=== PATIENT | female | born 1955 | race Caucasian/White ===

== ENCOUNTER → 2018-05-21 13:00 | Outpatient (BNVA) | payer MEDICARE, MEDICAID, SELFPAY | PROVIDERS: PCP Family Medicine; Visit Provider Internal Medicine Cardiovascular Disease | DX: I48.0 Paroxysmal atrial fibrillation (principal); J44.9 Chronic obstructive pulmonary disease, unspecified; F17.210 Nicotine dependence, cigarettes, uncomplicated; Z79.899 Other long term (current) drug therapy | CPT/HCPCS: 99213 ==

== ENCOUNTER 2018-05-21 14:15 | Outpatient (CLI) | payer MEDICARE, MEDICAID, SELFPAY ==
[2018-05-21 14:41] LABS: Abs Immature Grans 0.01 k/cumm (0.0-0.09); Absolute Basophil Count 0.04 k/cumm (0.0-0.2); Absolute Eosinophil Count 0.19 k/cumm (0.0-0.7); Absolute Lymphocyte Count 1.12 k/cumm (1.2-3.4); Absolute Monocyte Count 0.76 k/cumm (0.11-0.7); Absolute Neutrophil Count 4.24 k/cumm (1.2-6.7); Basophils % 0.6; HCT 39.3 % (36.0-46.0); HGB 13.1 g/dL (12.0-15.5); Immature Grans % 0.2; Lymphocytes % 17.6; Mean Corp. HGB Concentration 33.3 g/dL (32.0-36.0); Mean Corpuscular Hemoglobin 32.3 pg (27.0-33.0); Mean Platelet Volume 9.6 fL (8.0-11.0); Monocytes % 11.9; Neutrophils % 66.7; Platelet Count 244 x1000/uL (130-400); RBC 4.05 m/cumm (4.00-5.20); RBC Distribution Width 12.7 % (11.7-14.6); White Blood Cell Count 6.36 k/cumm (4.4-10.8)
[2018-05-21 16:01] LABS: Anion Gap 5.2 mmol/L (3-11); BUN 32 mg/dL (7-18); CO2 29.8 mmol/L (21.0-32.0); CREATININE 0.76 mg/dL (0.55-1.02); Calcium 8.6 mg/dL (8.5-10.1); Chloride 106 mmol/L (98-107); Glucose 101 mg/dL (70-100); Magnesium 2.2 mg/dL (1.8-2.4); Potassium 4.5 mmol/L (3.5-5.1); Sodium 141 mmol/L (136-145)
== END 2018-05-21 14:35 ==
PROVIDERS: PCP Family Medicine; Visit Provider Internal Medicine Cardiovascular Disease
DX: I48.91 Unspecified atrial fibrillation (principal); J44.9 Chronic obstructive pulmonary disease, unspecified; F17.210 Nicotine dependence, cigarettes, uncomplicated; Z79.899 Other long term (current) drug therapy
CPT/HCPCS: 80048; 83735; 85025; 93005; 99213

== ENCOUNTER 2018-06-03 06:31 | Day surgery (SDC) | payer MEDICARE, MEDICAID, SELFPAY ==
[2018-06-03 06:49] VITALS: BP 136/75; PULSE 92; RESP 18; TEMP 36.4; O2SAT 95
--- NOTE | 2018-06-03 07:22 | W.PM.DSUDISC ---
Discharge Plan Disposition Patient Disposition: HOME Condition: Good Discharge Details Attending Provider: Arnaldo Jonas Primary Care Provider: Juancarlos Mistry Home Meds and New Rx's Prescriptions: Continue multivitamin [Daily Vitamin] 1 EACH tablet 1 ea PO DAILY RF: 0 calcium carbonate-vitamin D3 1 EACH tablet 1 ea PO DAILY RF: 0 cholecalciferol (vitamin D3) [Vitamin D3] 2,000 UNIT capsule 2,000 unit PO DAILY RF: 0 omega-3 fatty acids 100 MG tablet,chewable 100 mg PO DAILY RF: 0 TECFIDERA 240 MG CAPSULE.DR 240 mg PO BID RF: 0 acetaminophen 650 MG tablet extended release 1 - 2 tab PO PRN RF: 0 colchicine [Colcrys] 0.6 MG tablet 0.6 mg PO As Directed Qty: 3 RF: 3 ipratropium bromide 15 ML spray,non-aerosol 2 spry NS TID PRNQty: 1 RF: 3 propranolol 10 MG tablet 10 mg PO DAILY Qty: 90 RF: 4 triamcinolone acetonide 15 GM cream Topical BID Qty: 30 RF: 3 tramadol 50 MG tablet 50 mg PO Q4H PRN PRNQty: 120 RF: 2 fluoxetine 10 MG capsule 10 mg PO DAILY Qty: 30 RF: 3 medroxyprogesterone [Provera] 2.5 MG tablet 2.5 mg PO DAILY Qty: 90 RF: 4 estradiol 0.5 MG tablet 0.5 mg PO DAILY Qty: 90 RF: 4 dofetilide [Tikosyn] 250 MCG capsule 250 mcg PO BID RF: 0 pantoprazole 40 MG tablet,delayed release (DR/EC) 40 mg PO DAILY Qty: 90 RF: 4 gabapentin 100 MG capsule 2 cap PO TID Qty: 540 RF: 4 cetirizine-pseudoephedrine 1 EACH tablet extended release 12 hr 1 tab-cap PO BID PRNQty: 60 RF: 5 magnesium L-lactate [Magtab] 84 MG tablet extended release 84 mg PO TID Qty: 180 RF: 3 temazepam 15 MG capsule 15 mg PO BID Qty: 60 RF: 2 dextroamphetamine-amphetamine [Adderall] 30 MG tablet 30 mg PO BID Qty: 60 RF: 0 Fluocinonide 60 ML solution 60 ml Topical BID Qty: 60 RF: 3 potassium chloride 10 MEQ capsule, extended release 20 meq PO DAILY Qty: 180 RF: 3 naproxen 500 MG tablet 500 mg PO BID Qty: 60 RF: 3 Discharge Instructions Additional Instructions: Activity: You may use your finger for light activity. No heavy gripping or grasping. You should keep the finger clean and dry. Dressings: Keep the initial dressings in place for the first 48 hours. You may then remove them and replace with a band-aid. The wound may get wet at that time. Medications: - You may apply ice for pain control. - You should take your previously prescribed Tylenol and Naproxen for pain control. Follow-up: 7 days Activity:: Elevate Remove Dressings/Wound Care:: 48 hours Shower/Bathe:: 48 hours Discharge Orders Discharge Orders: Discharge Order (Routine); Ordered 06/03/18 Ordered By: Arnaldo Jonas DS: Diagnosis Discharge Diagnosis (1) Ganglion cyst of finger of left hand: Status: Acute
[2018-06-03] MEDS: Lidocaine 1% Pres-Free 5 ML VIAL 10 ML (07:35)
[2018-06-03] MEDS: Bupivacaine 0.5% Pres-Free 30 ML VIAL (07:47)
--- NOTE | 2018-06-03 08:45 | ROE_ITS ---
Date of service: 06/03/18 Time of Service: 08:41 Operative Note DATE OF PROCEDURE: 06/03/18 PRE-OP DIAGNOSIS: Left Index Finger Ganglion Cyst POST-OP DIAGNOSIS: same PROCEDURE: Excision of ganglion cyst from left index finger SURGEON: Arnaldo Jonas ANESTHESIA: local ESTIMATED BLOOD LOSS: 0 PATHOLOGY: none sent COMPLICATIONS: None Patient was transported to: same day Patient's condition: stable Indications: Renu is a 63-year-old who has had a cyst over the dorsum of her left index finger proximal to the PIP joint for some time. He continues to get in the way and cause pain. She had tried letting it go but it continues to be persistent. I reviewed risk of excision with Renu to include bleeding, infection, pain, stiffness, recurrence. Despite these risks, she elects to proceed. Findings: There was a ganglion cyst located very superficially. It appear to be coming from the dorsum of the extensor tendon. No stalk down into the PIP joint was appreciated. Procedure Description: Renu was greeted in the preoperative holding area where her identity was confirmed the correct site was identified and marked. The consent was reviewed the patient and signed. Renu was taken back to the operating room placed in supine position. All bony prominences are well- padded. No prophylactic antibiotics were necessary given the clean nature of this distal hand surgery. The left hand was placed into a bump and prepped with ChloraPrep and draped in the standard fashion. A timeout was performed for safe surgery. A digital block to the index finger was performed with 1% lidocaine. After obtaining anesthesia for the finger a Yue drain was placed on the base of the finger to decrease blood flow. A 1-1/2 cm incision was made just radial to the cyst over the dorsum of the left index finger. The skin was incised sharply. Immediately visible was the cyst and the cyst contents were expressed. The cyst was inadvertently entered with the blunt tenotomy scissors. The cyst remnants were followed and appear to be adherent to the extensor tendon. There is no apparent communication to the PIP joint. The fluid removed was typical mucinous cyst type material. The wound was then thoroughly irrigated. The deeper tissues were explored and again showed no communication to the PIP joint. The wound was irrigated again. This was closed with a single 4-0 nylon stitch. The [place] drain was removed. The wound was dressed with Xeroform, 2 x 2's, conform dressing. At the end of the case there were no complications. She was taken to same-day surgery in stable condition.
== END 2018-06-03 08:18 | disposition home or self-care (01) ==
PROVIDERS: PCP Family Medicine; Visit Provider Student in an Organized Health Care Education/Training Program
PROC: (CPT 26160; principal; 2018-06-03 07:30)
DX: M67.442 Ganglion, left hand (principal)
CPT/HCPCS: 26160

== ENCOUNTER → 2018-06-03 07:59 | Outpatient (BNVA) | payer MEDICARE, MEDICAID, SELFPAY | PROVIDERS: PCP Family Medicine; Visit Provider Student in an Organized Health Care Education/Training Program | DX: R69 Illness, unspecified (principal) ==

== ENCOUNTER → 2018-06-11 13:56 | Outpatient (BNVA) | payer MEDICARE, MEDICAID, SELFPAY | PROVIDERS: PCP Family Medicine; Referring Provider Family Medicine; Visit Provider Student in an Organized Health Care Education/Training Program | DX: M67.442 Ganglion, left hand (principal); Z47.89 Encounter for other orthopedic aftercare ==

== ENCOUNTER → 2018-10-24 14:04 | Outpatient (BNVA) | payer MEDICARE, MEDICAID, SELFPAY | PROVIDERS: PCP Family Medicine; Visit Provider Internal Medicine Cardiovascular Disease | DX: R69 Illness, unspecified (principal) ==

== ENCOUNTER 2018-10-24 15:13 | Outpatient (CLI) | payer MEDICARE, MEDICAID, SELFPAY | END 2018-10-24 15:33 | PROVIDERS: PCP Family Medicine; Visit Provider Internal Medicine Cardiovascular Disease | DX: I48.0 Paroxysmal atrial fibrillation (principal); J44.9 Chronic obstructive pulmonary disease, unspecified; F17.210 Nicotine dependence, cigarettes, uncomplicated; Z79.899 Other long term (current) drug therapy | CPT/HCPCS: 99214; 93005; 93010 ==

== ENCOUNTER 2018-12-10 14:31 | Outpatient (CLI) | payer MEDICARE, MEDICAID, SELFPAY ==
[2018-12-10 18:10] LABS: BUN 21 mg/dL (7-18); CREATININE 0.75 mg/dL (0.55-1.02); Calcium 9.2 mg/dL (8.5-10.1); Chloride 105 mmol/L (98-107); Glucose 94 mg/dL (70-100); Magnesium 1.8 mg/dL (1.8-2.4); Potassium 4.1 mmol/L (3.5-5.1); Sodium 143 mmol/L (136-145)
== END 2018-12-10 14:51 ==
PROVIDERS: PCP Family Medicine; Referring Provider Psychiatry & Neurology Neurology; Visit Provider Internal Medicine Cardiovascular Disease
DX: I48.91 Unspecified atrial fibrillation (principal); G35 Multiple sclerosis
CPT/HCPCS: 36415; 80048; 83735

== ENCOUNTER → 2019-02-26 11:27 | Outpatient (BNVA) | payer MEDICARE, MEDICAID, SELFPAY | PROVIDERS: PCP Family Medicine; Visit Provider Internal Medicine Cardiovascular Disease | DX: G35 Multiple sclerosis (principal); Z79.899 Other long term (current) drug therapy; I48.91 Unspecified atrial fibrillation; I48.92 Unspecified atrial flutter; F17.200 Nicotine dependence, unspecified, uncomplicated; J44.9 Chronic obstructive pulmonary disease, unspecified ==

== ENCOUNTER 2019-02-26 11:58 | Outpatient (CLI) | payer MEDICARE, MEDICAID, SELFPAY | END 2019-02-26 12:18 | PROVIDERS: PCP Family Medicine; Visit Provider Internal Medicine Cardiovascular Disease | DX: I48.91 Unspecified atrial fibrillation (principal); I48.92 Unspecified atrial flutter; J44.9 Chronic obstructive pulmonary disease, unspecified; F17.210 Nicotine dependence, cigarettes, uncomplicated; G35 Multiple sclerosis | CPT/HCPCS: 99214; 93005; 93010 ==

== ENCOUNTER 2019-03-30 13:37 | Outpatient (CLI) | payer MEDICARE, MEDICAID, SELFPAY ==
[2019-03-30 14:03] LABS: Abs Immature Grans 0.01 k/cumm (0.0-0.09); Absolute Basophil Count 0.03 k/cumm (0.0-0.2); Absolute Eosinophil Count 0.19 k/cumm (0.0-0.7); Absolute Lymphocyte Count 1.04 k/cumm (1.2-3.4); Basophils % 0.5; Eosinophils % 2.9; HCT 41.2 % (36.0-46.0); HGB 13.7 g/dL (12.0-15.5); Immature Grans % 0.2; Lymphocytes % 15.8; Mean Corp. HGB Concentration 33.3 g/dL (32.0-36.0); Mean Corpuscular Hemoglobin 32.3 pg (27.0-33.0); Mean Corpuscular Volume 97.2 fL (80-95); Mean Platelet Volume 9.7 fL (8.0-11.0); Monocytes % 9.1; Neutrophils % 71.5; Platelet Count 235 x1000/uL (130-400); RBC 4.24 m/cumm (4.00-5.20); RBC Distribution Width 12.4 % (11.7-14.6); White Blood Cell Count 6.57 k/cumm (4.4-10.8)
[2019-03-30 14:56] LABS: ALT 22 U/L (12-78); AST 16 U/L (15-37); Albumin 3.8 g/dL (3.4-5.0); Alkaline Phosphatase 54 U/L (46-116); Anion Gap 8.9 mmol/L (3-11); BUN 21 mg/dL (7-18); Bilirubin, Total 0.5 mg/dL (0.2-1.0); CO2 29.1 mmol/L (21.0-32.0); CREATININE 0.84 mg/dL (0.55-1.02); Chloride 106 mmol/L (98-107); Glucose 123 mg/dL (70-100); Magnesium 2.1 mg/dL (1.8-2.4); Potassium 4.7 mmol/L (3.5-5.1); Sodium 144 mmol/L (136-145); Total Protein 6.7 g/dL (6.4-8.2)
== END 2019-03-30 13:57 ==
PROVIDERS: PCP Family Medicine; Visit Provider Psychiatry & Neurology Neurology
DX: G35 Multiple sclerosis (principal); R76.8 Other specified abnormal immunological findings in serum; I48.91 Unspecified atrial fibrillation; F32.9 Major depressive disorder, single episode, unspecified
CPT/HCPCS: 36415; 80053; 83735; 85025

== ENCOUNTER 2019-07-03 16:18 | Outpatient (CLI) | payer MEDICARE, MEDICAID, SELFPAY ==
[2019-07-03 19:14] LABS: BUN 33 mg/dL (7-18); CREATININE 0.81 mg/dL (0.55-1.02)
== END 2019-07-03 16:38 ==
PROVIDERS: PCP Family Medicine; Visit Provider Psychiatry & Neurology Neurology
DX: G35 Multiple sclerosis (principal)
CPT/HCPCS: 36415; 84520; 82565

== ENCOUNTER 2019-07-20 08:33 | Outpatient (CLI) | payer MEDICARE, MEDICAID, SELFPAY | END 2019-07-20 08:53 | PROVIDERS: PCP Family Medicine; Visit Provider Internal Medicine Cardiovascular Disease | DX: I48.0 Paroxysmal atrial fibrillation (principal); Z98.890 Other specified postprocedural states; J44.9 Chronic obstructive pulmonary disease, unspecified; F17.210 Nicotine dependence, cigarettes, uncomplicated | CPT/HCPCS: 99204; 99215; 93005; 93010 ==

== ENCOUNTER → 2020-01-12 13:03 | Outpatient (BNVA) | payer MEDICARE, MEDICAID, SELFPAY | PROVIDERS: PCP Family Medicine; Referring Provider Family Medicine; Visit Provider Internal Medicine Cardiovascular Disease | DX: I48.19 Other persistent atrial fibrillation; J44.9 Chronic obstructive pulmonary disease, unspecified; F17.210 Nicotine dependence, cigarettes, uncomplicated | CPT/HCPCS: 99442; 99213 ==

== ENCOUNTER → 2020-07-04 09:48 | Outpatient (BNVA) | payer MEDICARE, MEDICAID, SELFPAY | PROVIDERS: Referring Provider Family Medicine; Visit Provider Internal Medicine Cardiovascular Disease | DX: I48.19 Other persistent atrial fibrillation (principal); Z79.899 Other long term (current) drug therapy; J44.9 Chronic obstructive pulmonary disease, unspecified | CPT/HCPCS: 99214; 99442 ==

== ENCOUNTER 2021-01-26 01:14 | Outpatient (CLI) | payer MEDICARE, MEDICAID, SELFPAY ==
--- NOTE | 2021-01-26 13:58 | DI.RAD_ITS ---
Exam(s) XR CHEST 2V PA LATERAL EXAM: XR CHEST 2V PA LATERAL CLINICAL HISTORY: Dyspnea,R06.00. TECHNIQUE: 2D digital imaging was performed. COMPARISON: No exams were available for comparison FINDINGS: Heart size is normal. The mediastinum is not widened. Lungs are clear. No infiltrates nor pleural effusions. No pulmonary edema IMPRESSION: No acute pulmonary findings. DATA REPOSITORY: RADIATION DOSE DELIVERED:
== END 2021-01-26 01:34 ==
DX: R06.09 Other forms of dyspnea (principal)
CPT/HCPCS: 71046

== ENCOUNTER → 2021-04-17 13:39 | Outpatient (BNVA) | payer OTHER, MEDICAID, SELFPAY | PROVIDERS: Visit Provider Internal Medicine Cardiovascular Disease | DX: I48.0 Paroxysmal atrial fibrillation; Z79.899 Other long term (current) drug therapy; J44.9 Chronic obstructive pulmonary disease, unspecified; F17.210 Nicotine dependence, cigarettes, uncomplicated | CPT/HCPCS: 93005; 99213 ==

== ENCOUNTER 2021-07-21 19:34 | Outpatient (REF) | payer OTHER, MEDICAID, SELFPAY ==
[2021-07-23 01:14] LABS: COVID-19 RT-PCR UVMMC Result Negative (Negative)
== END 2021-07-21 19:35 | disposition home or self-care (01) ==
LOC: LBN 19:34
PROVIDERS: Visit Provider Physician Assistant Medical
DX: Z20.822 Contact with and (suspected) exposure to COVID-19 (principal); J06.9 Acute upper respiratory infection, unspecified
CPT/HCPCS: U0003; U0005

== ENCOUNTER 2021-07-21 20:58 | Emergency (ER) | payer OTHER, MEDICAID, SELFPAY ==
[2021-07-21] VITALS (18 sets, daily range): BP systolic 118–140; BP diastolic 52–108; PULSE 55–128; RESP 16–26; TEMP 36.6; O2SAT 87–100
--- NOTE | 2021-07-21 21:15 | RT.EKG_ITS ---
APPROVED REPORT Exam: Resting ECG Reason for Exam: Hypoxia, SOB, Chest pain Patient Location: E HR:103 bpm ECG Measurements Heart Rate 103 AXIS MI 180 P 79 QRSd 103 QRS -43 QT 363 T 66 QTc 475 Conclusion Sinus tachycardia...rate> [address]-T changes There are no significant changes compared to prior EKG performed on 04/17/2021 at 12:48.
--- NOTE | 2021-07-21 21:15 | DI.CT_ITS ---
Exam(s) CT CHEST PE CTA EXAM: CT CHEST PE CTA CLINICAL HISTORY: R/O PE, PNA, Hypoxia. TECHNIQUE: Imaging Protocol: Axial CT angiography was performed with multi-slice acquisition and mu lti-planar and/or 3D reconstructions. CONTRAST MATERIAL: Intravenous: Omnipaque 350 Contrast volume:structured data in ml COMPARISON: CT ABD PELVIS WITH CONTRAST from 02/20/2018 FINDINGS: CT angiography of the chest was performed with intravenous infusion of 100 cc of Omnipaque 350. There are patchy mixed nodular/consolidative opacities in the lower lobes posteriorly of both lungs, findings are suspicious for pneumonitis. Other etiologies not excluded. Opacities no pleural effusi on. Tracheobronchial tree appears intact. No evidence of pulmonary embolic disease. Thoracic aorta is of normal diameter, no thoracic aortic an eurysm or dissection, major branch vessels appear intact. No mediastinal or hilar adenopathy. Images obtained through the upper abdomen show unremarkable appearance of the visualized portions of the liver, spleen, pancreas, adrenals, and kidneys. IMPRESSION: No evidence of pulmonary embolic disease. There are patchy nonspecific opacities seen in both lungs in the lower lobes suspicious for pneumonitis. Please correlate clinically. RADIATION DOSE DELIVERED: 282.61mGy.cm Total DLP 282.61mGy.cm Total DLP 6.99mGy CTDIvol DATA REPOSITORY: All CT scans at this facility are submitted to the National Radiology Data Registry (NRDR) Dose Index Registry (DIR) with the [employer] (ACR). RADIATION OPTIMIZATION: All CT scans at this facility use at least one of these dose optimization te chniques: automated exposure control; mA and/or kV adjustment per patient size (includes targeted exa ms where dose is matched to clinical indication); or iterative reconstruction.
--- NOTE | 2021-07-21 21:24 | ED.GENADUL_ITS ---
Discharge Plan Disposition Patient Disposition: HOME Condition: Improving Discharge Details Clinical Impression: COPD exacerbation, Pneumonia Primary Care Provider: Juli Kothari ED Provider: Dot Doan Home Meds and New Rx's Prescriptions: New prednisone 20 mg tablet 40 mg PO DAILY 5 Days Qty: 10 RF: 0 doxycycline hyclate 100 mg capsule 100 mg PO BID 9 Days Qty: 18 RF: 0 Continued fluticasone propionate 220 mcg/actuation HFA aerosol inhaler 2 puff IH BID Qty: 12 RF: 4 Eliquis 5 mg tablet 5 mg PO BID Qty: 180 RF: 6 dofetilide [Tikosyn] 250 mcg capsule 250 mcg PO BID Qty: 180 RF: 4 medroxyprogesterone [Provera] 2.5 mg tablet 2.5 mg PO DAILY Qty: 90 RF: 4 propranolol 20 mg tablet 20 mg PO BID PRN (Reason: tremor) Qty: 180 RF: 4 acetaminophen [Tylenol Arthritis Pain] 650 mg tablet extended release 650 mg PO Q12H PRN (Reason: pain) Qty: 180 RF: 4 albuterol sulfate [ProAir HFA] 90 mcg/actuation HFA aerosol inhaler 2 puff IH Q6H PRN (Reason: shortness of breath or wheezing) Qty: 18 RF: 2 No Action gabapentin 100 mg capsule 200 mg PO TID Qty: 370 RF: 6 multivitamin [Daily Vitamin] 1 EACH tablet 1 ea PO DAILY RF: 0 calcium carbonate-vitamin D3 1 EACH tablet 1 ea PO DAILY RF: 0 omega-3 fatty acids 100 MG tablet,chewable 100 mg PO DAILY RF: 0 TECFIDERA 240 MG CAPSULE.DR 240 mg PO BID RF: 0 triamcinolone acetonide 15 GM cream 0 Topical BID Qty: 30 RF: 3 colchicine [Colcrys] 0.6 mg tablet 0.6 mg PO As Directed PRNQty: 3 RF: 3 fexofenadine-pseudoephedrine 180-240 mg tablet extended release 24 hr 1 tab PO QAM Qty: 90 RF: 4 Hold Instructions: Home Medication placed on hold at Doctor's office Sudafed 24 Hour 240 mg tablet extended release 24 hr 240 mg PO DAILY PRN (Reason: nasal congestion) Qty: 30 RF: 11 All Day Allergy (cetirizine) 10 mg capsule 10 mg PO DAILY PRN (Reason: allergy symptoms) Qty: 30 RF: 11 potassium chloride 10 mEq capsule, extended release 10 meq PO BID Qty: 180 RF: 4 glucosamine-chondroitin 900 mg tablet See Rx Instructions PO .COMPLEX Qty: 90 RF: 11 estradiol 0.5 mg tablet 0.5 mg PO DAILY Qty: 90 RF: 4 fluocinonide 0.05 % solution 1 applic TP BID Qty: 60 RF: 4 pantoprazole 40 mg tablet,delayed release (DR/EC) 40 mg PO DAILY Qty: 90 RF: 4 temazepam 15 mg capsule 15 mg PO BID PRN (Reason: insomnia) Qty: 60 RF: 2 dextroamphetamine-amphetamine 30 mg tablet 30 mg PO BID MDD 60mg Qty: 60 RF: 0 magnesium L-lactate [Magtab] 84 mg tablet extended release 168 mg PO BID Qty: 180 RF: 4 Discharge Instructions Instructions: How to Stop Smoking (ED), COPD (Chronic Obstructive Pulmonary Disease) (ED), Pneumonia (ED) Additional Instructions: Please call your primary care provider first thing Saturday to be seen early next week to discuss need for as needed oxygen in the home. Please return to the emergency room over the weekend if you have any increasing confusion, fever, vomiting, or any concerns. Please take the antibiotics twice daily as prescribed and the prednisone once daily for the next 5 days. Increase oral fluids. Decrease smoking or stop smoking if possible. Referrals: Juli Kothari, [employer] [Primary Care Provider] - 2 days Medical Decision Making 66-year-old female presents to the ER with chief complaint of shortness of breath, confusion, yellow productive cough for the last 1 to 2 days. Patient also reports purpleish hand and foot that she noticed today. Patient was seen at PCP office few hours prior to arrival and was found to have low oxygen was instructed to present to the ER. Patient also reports that 6 days ago she fell off a couple of steps landing on her chest. She reports that it was painful to take a deep breath she denies any chest pain upon arrival. She does appear confused and cyanotic on arrival. She is satting 84- to 87% on room air. She does not normally wear oxygen at home. She does have a past medical history of multiple sclerosis, relapsing?remitting, paroxysmal atrial fibrillation, COPD, asthma, GERD, bipolar disorder,. She is taking Eliquis, she did use her inhalers as prescribed today. She is a daily smoker. Patient placed on 2 L nasal cannula upon initial presentation, O2 sat up to 92%. Cardiac work-up ordered including serial troponins, EKG, CT chest rule out PE versus pneumonia. Rapid Covid swab ordered also. Patient is vaccinated. Differential diagnosis includes but not limited to pneumonia, Covid, chest trauma, PE, coronary artery disease. 2148: Patient placed on room air due to oxygen saturation 100% we will do a room air trial. Patient is tachycardic with irregular rate. Does have a history of A. fib. 2226: Informed by junior staff accountant that patient dropped down to 84% on room air while lying in bed. Patient placed back on 2 L nasal cannula at this time O2 sat is 98%. CBC largely within normal limits, CMP shows sodium 142, potassium 4.2 carbon dioxide 37.7, BUN 27 creatinine 0.8 GFR greater than 60, glucose 115, magnesium slightly low at 1.7. Covid is pending at this time. CT chest pending at this time. [facility] CTA Chest with Contrast CR XR CHEST 2V PA LATERAL 01/26/2021 13:51 FINDINGS: Pulmonary arteries: No pulmonary emboli. Aorta: No aortic aneurysm. No aortic dissection. Lungs: Mild centrilobular pattern nodules in both lower lobes. Minimal dependent subsegmental atelectasis. Minor bronchial wall thickening in the perihilar region. Pleural spaces: No pneumothorax. No pleural effusion. Heart: No cardiomegaly. No pericardial effusion. Lymph nodes: No enlarged lymph nodes. Bones/joints: Mild thoracolumbar junction scoliosis to the right similar to prior. Soft tissues: Bilateral breast implants. IMPRESSION: 1. Mild bilateral lower lobe inhalational or infectious endobronchial disease, likely a minor pneumonia given the history. 2. No pulmonary emboli are seen. 3. Incidental findings as described. Thank you for allowing us to participate in the care of your patient. Dictated and Authenticated by: Anitha March MD Discussed CT results with patient that show possible early pneumonia versus COPD exacerbation. Patient placed on room air satting 89 to 93%. Patient okay to take her p.m. oral medications. I did discuss admission with her and after some shared decision making patient would rather be discharged home. I did discuss that she would likely benefit from oxygen at home which could be better facilitated with an admission. I did discuss strict follow-up with primary care provider to discuss oxygen initiation as an outpatient basis. This time I will place patient on doxycycline twice daily for 10 days and give her prednisone 40 mg daily x5 days. Will give a Duo Neb Prior to DC, O2 sat at this time 93% RA. Patient to call for friend to pick her up. HPI General Mode of arrival: ambulatory . Date/Time Provider Initiated Documentation: 07/21/21 21:08 . Limitations to Documentation: altered mental status (Slightly confused) . Information obtained by: patient, RN notes reviewed and old records reviewed . HPI Narrative: 66-year-old female presents to the ER with chief complaint of shortness of breath, confusion, yellow productive cough for the last 1 to 2 days. Patient also reports purpleish hand and foot that she noticed today. Sayda leiva was seen at PCP office few hours prior to arrival and was found to have low oxygen was instructed to present to the ER. Patient also reports that 6 days ago she fell off a couple of steps landing on her chest. She reports that it was painful to take a deep breath she denies any chest pain upon arrival. She does appear confused and cyanotic on arrival. She is satting 84- to 87% on room air. She does not normally wear oxygen at home. She does have a past medical history of multiple sclerosis, relapsing?remitting, paroxysmal atrial fibrillation, COPD, asthma, GERD, bipolar disorder,. She is taking Eliquis, she did use her inhalers as prescribed today. She is a daily smoker. Related Data Home Medications Medication Instructions Recorded Confirmed calcium carbonate-vitamin D3 1 ea PO DAILY 12/19/12 07/21/21 multivitamin [Daily Vitamin] 1 ea PO DAILY 12/19/12 07/21/21 omega-3 fatty acids 100 mg PO DAILY tab.chew 12/19/12 07/21/21 Tecfidera 240 mg PO BID 03/04/13 04/17/21 triamcinolone acetonide 0 TOPICAL BID #30 g 03/26/17 04/17/21 colchicine 0.6 mg tablet 0.6 mg PO As Directed PRN #3 tab 07/20/19 07/21/21 fexofenadine-pseudoephedrine ER 1 tab PO QAM #90 tab 04/07/20 04/17/21 180 mg-240 mg tablet,ext.release 24 hr gabapentin 100 mg capsule 200 mg PO TID #370 cap 07/25/20 07/21/21 cetirizine 10 mg capsule 10 mg PO DAILY PRN #30 cap 08/01/20 07/21/21 pseudoephedrine HCl 240 mg 240 mg PO DAILY PRN #30 tab 08/01/20 07/21/21 tablet,extended release 24 hr potassium chloride 10 mEq 10 meq PO BID #180 tab-cap 08/23/20 07/21/21 capsule,extended release antiarthritic combination no.2 900 See Rx Instructions PO .COMPLEX 09/16/20 07/21/21 mg tablet #90 tab apixaban 5 mg tablet 5 mg PO BID #180 tab 09/16/20 07/21/21 dofetilide 250 mcg capsule 250 mcg PO BID #180 cap 09/16/20 07/21/21 estradiol 0.5 mg tablet 0.5 mg PO DAILY #90 tab-cap 09/16/20 07/21/21 fluocinonide 0.05 % topical 1 applic TP BID #60 ml 09/16/20 07/21/21 solution medroxyprogesterone 2.5 mg tablet 2.5 mg PO DAILY #90 tab 09/16/20 04/17/21 pantoprazole 40 mg tablet,delayed 40 mg PO DAILY #90 tab-cap 09/16/20 07/21/21 release propranolol 20 mg tablet 20 mg PO BID PRN #180 tab-cap 09/16/20 07/21/21 acetaminophen 650 mg 650 mg PO Q12H PRN #180 tab 11/04/20 07/21/21 tablet,extended release fluticasone propionate 220 2 puff IH BID #12 g 01/23/21 07/21/21 mcg/actuation HFA aerosol inhaler albuterol sulfate 90 mcg/actuation 2 puff IH Q6H PRN #18 gm 04/19/21 07/21/21 aerosol inhaler temazepam 15 mg capsule 15 mg PO BID PRN #60 tab-cap 06/12/21 07/21/21 dextroamphetamine-amphetamine 30 30 mg PO BID #60 tab MDD 60mg 07/03/21 07/21/21 mg tablet magnesium L-lactate 84 mg 168 mg PO BID #180 tab 07/03/21 tablet,extended release doxycycline hyclate 100 mg PO BID 9 Days #18 cap 07/22/21 prednisone 40 mg PO DAILY 5 Days #10 tab 07/22/21 Previous Rx's Medication Instructions Recorded fexofenadine-pseudoephedrine ER 1 tab PO QAM #90 tab 04/07/20 180 mg-240 mg tablet,ext.release 24 hr gabapentin 100 mg capsule 200 mg PO TID #370 cap 07/25/20 cetirizine 10 mg capsule 10 mg PO DAILY PRN #30 cap 08/01/20 pseudoephedrine HCl 240 mg 240 mg PO DAILY PRN #30 tab 08/01/20 tablet,extended release 24 hr potassium chloride 10 mEq 10 meq PO BID #180 tab-cap 08/23/20 capsule,extended release antiarthritic combination no.2 900 See Rx Instructions PO .COMPLEX 09/16/20 mg tablet #90 tab apixaban 5 mg tablet 5 mg PO BID #180 tab 09/16/20 dofetilide 250 mcg capsule 250 mcg PO BID #180 cap 09/16/20 estradiol 0.5 mg tablet 0.5 mg PO DAILY #90 tab-cap 09/16/20 fluocinonide 0.05 % topical 1 applic TP BID #60 ml 09/16/20 solution medroxyprogesterone 2.5 mg tablet 2.5 mg PO DAILY #90 tab 09/16/20 pantoprazole 40 mg tablet,delayed 40 mg PO DAILY #90 tab-cap 09/16/20 release propranolol 20 mg tablet 20 mg PO BID PRN #180 tab-cap 09/16/20 acetaminophen 650 mg 650 mg PO Q12H PRN #180 tab 11/04/20 tablet,extended release fluticasone propionate 220 2 puff IH BID #12 g 01/23/21 mcg/actuation HFA aerosol inhaler albuterol sulfate 90 mcg/actuation 2 puff IH Q6H PRN #18 gm 04/19/21 aerosol inhaler temazepam 15 mg capsule 15 mg PO BID PRN #60 tab-cap 06/12/21 dextroamphetamine-amphetamine 30 30 mg PO BID #60 tab MDD 60mg 07/03/21 mg tablet magnesium L-lactate 84 mg 168 mg PO BID #180 tab 07/03/21 tablet,extended release doxycycline hyclate 100 mg PO BID 9 Days #18 cap 07/22/21 prednisone 40 mg PO DAILY 5 Days #10 tab 07/22/21 Allergies Allergy/AdvReac Type Severity Reaction Status Date / Time hydrocodone AdvReac Severe excessive Verified 01/23/21 13:56 sedation metoprolol AdvReac Intermediate fatigue Verified 01/23/21 13:56 rivaroxaban [From Xarelto] AdvReac fatigue Verified 01/23/21 13:56 General Stated Complaint: SOB CIERA: 2 Review of Systems All systems reviewed & are unremarkable except as noted in HPI and below PFSH Medical History Abnormal weight loss Bilateral impacted cerumen (05/26/15) COPD with chronic bronchitis Dysfunctional uterine bleeding Dyspnea 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 Multiple sclerosis, relapsing-remitting Paroxysmal atrial fibrillation Vaginal wall prolapse (04/16/12) Surgical History Augmentation mammoplasty IMPLANT Bilateral salpingectomy with oophorectomy History of bilateral ligation of fallopian tubes Family History Mother , 60's Cancer skin & breast cancer Father , 70's Cancer Bladder Social History Smoking/Tobacco Use Status: Current every day Tobacco Type: cigarettes Smoking packs per day: 1 Smoking cigarettes per day: 20.0 Tobacco: How many years used: 45 Quit status: considering quitting Counseling given: provider counseling Smoking risk assessment performed?: Yes Alcohol Intake: never Drug use: Never Substance use type: does not use Adopted: No Caregiver/Support person: No Foster care: No Household members: friend(s) Number of Children: 1 Pets and animals: Yes (Therapy dog) Pets and animals: cat(s) and dog(s) Sexually active: No Do you think of yourself as: straight/heterosexual Current gender identity: female What is your relationship status?: How often do you talk on the phone with friends or family?: decline to answer How often do you get together with friends or relatives?: never How often do you attend nondenominational or nondenominational services?: decline to answer Do you belong to any clubs or organized social groups?: no Panel score (0-1 are the most socially isolated patients): 0 What type of physical activity do you participate in: walking and other Details: streching Duration: 15-30 minutes/day Frequency: 5-6 times per week [employer]/Church: other Seatbelt use: always Helmet use: No Drive intox or ride w/intox compactor driver: No Do you feel safe at home: Yes Do you feel safe in your relationship?: Yes Exam Narrative Exam Narrative: Constitutional: Alert and oriented x2., Slightly confused. Appears stated age. thin body habitus. Head: Normocephalic, no trauma. Eyes: Pupils PERRL, Red reflex noted, EOM's intact. Eyelids symmetrical without lesions, discharge, or swelling. ENT: Bilateral TM's WNL, External ear normal to inspection, no mastoid TTP, swelling, or erythema, Nasal turbinates WNL, no nasal discharge. Normal dentition, Posterior pharynx WNL, no exudate. Chest: Irregular atrial fibrillation at a controlled rate of 98-114, Normal S1, S2, distal pulses intact. Resp: Lungs diminished to auscultation bilaterally, right lower lobe rhonchi auscultated. Increased dyspnea with exertion. Abdomen: Soft, non-distended, Normoactive bowel sounds all 4 quads. Musculoskeletal: Normal gait, 5/5 strength to all four extremities. Skin: No suspicious rashes or lesions. Capillary refill greater than 2 sec. bilateral hands cyanotic, cool to the touch. Neurologic: Cranial nerves II-XII intact. Alert and oriented x 3. Motor: No defi cits noted. Sensory: Intact bilaterally all 4 extremities. Reflexes: DTR's intact bilaterally.. Hematologic/Lymphatic: No ecchymosis, no lymphadenopathy. Course Vital Signs Vital signs: Vital Signs Temperature 36.6 C 07/21/21 21:10 Pulse 63 07/21/21 21:10 Respiratory Rate 20 07/21/21 21:10 Blood Pressure 124/108 H 07/21/21 21:10 Pulse Oximetry 87 L 07/21/21 21:10 Temperature 36.6 C 07/21/21 21:10 Pulse 63 07/21/21 21:10 Respiratory Rate 20 07/21/21 21:10 Respiratory Effort 07/21/21 21:18 Blood Pressure 124/108 H 07/21/21 21:10 Pulse Oximetry 87 L 07/21/21 21:10 Oxygen Delivery Method Room Air 07/21/21 21:10 Oxygen Flow Rate 0 07/21/21 21:10 Pain Level 0 07/21/21 21:10
[2021-07-21 21:42] LABS: Source Nasal/Nares
[2021-07-21 21:44] LABS: Abs Immature Grans 0.04 10^3/uL (0.0-0.06); Absolute Basophil Count 0.05 10^3/uL (0.0-0.2); Absolute Eosinophil Count 0.19 10^3/uL (0.0-0.7); Absolute Lymphocyte Count 1.53 10^3/uL (1.2-3.4); Absolute Neutrophil Count 5.59 10^3/uL (1.2-6.7); Basophils % 0.6; Eosinophils % 2.3; HCT 43.8 % (36.0-46.0); Immature Grans % 0.5; Lymphocytes % 18.7; MCV 100.2 fL (80-95); MPV 9.9 fL (8.0-11.0); Monocytes % 9.8; Neutrophils % 68.1; Nucleated RBC 0 %; Platelet Count 338 10^3/uL (130-400); RBC 4.37 10^6/uL (3.93-5.22); RDW 12.2 % (11.7-14.6); RDW-SD 45.8 fL
[2021-07-21 22:04] LABS: PTT Activated 24.5 sec (21.0-27.5); Prothrombin Time 10.4 sec (9.3-11.0)
[2021-07-21 22:11] LABS: ALT 17 U/L (14-59); AST 17 U/L (15-37); Albumin 3.9 g/dL (3.4-5.0); Alkaline Phosphatase 76 U/L (46-116); Anion Gap 4.3 mmol/L (3-11); BUN 27 mg/dL (7-18); Bilirubin, Total 0.4 mg/dL (0.2-1.0); CO2 37.7 mmol/L (21.0-32.0); CREATININE 0.8 mg/dL (0.55-1.02); Calcium 9.5 mg/dL (8.5-10.1); Chloride 100 mmol/L (98-107); Glucose 115 mg/dL (74-106); Magnesium 1.7 mg/dL (1.8-2.4); Potassium 4.2 mmol/L (3.5-5.1); Sodium 142 mmol/L (136-145); Total Protein 8.3 g/dL (6.4-8.2)
[2021-07-21 22:12] LABS: Troponin I < 0.05 ng/mL (<0.06)
[2021-07-21 22:48] LABS: COVID-19 PCR Negative (Negative)
[2021-07-21] MEDS: Normal Saline - Diluent 50 ML VIAL IV ×2 (23:00→23:01)
[2021-07-21] MEDS: Omnipaque 350 MG/ML 100 ML BTL IJ (23:01)
[2021-07-21] MEDS: Normal Saline Flush 10 ML SYR IVP (23:01)
[2021-07-21] MEDS: methylPREDNISolone SUCC 125 MG VIAL IVP (23:14)
[2021-07-21] MEDS: Normal Saline 1,000 ML 250 ML IV (23:14)
--- NOTE | 2021-07-21 23:26 | DI.VRAD_ITS ---
PROCEDURE INFORMATION: Exam: CTA Chest With Contrast Exam date and time: 07/21/2021 21:24 Age: 66 years old Clinical indication: Other: R/O pe, pna, hypoxia TECHNIQUE: Imaging protocol: Computed tomographic angiography of the chest with contrast. 3D rendering (Not supervised by radiologist): MIP and/or 3D reconstructed images were created by the technologist. COMPARISON: CR XR CHEST 2V PA LATERAL 01/26/2021 13:51 FINDINGS: Pulmonary arteries: No pulmonary emboli. Aorta: No aortic aneurysm. No aortic dissection. Lungs: Mild centrilobular pattern nodules in both lower lobes. Minimal dependent subsegmental atelectasis. Minor bronchial wall thickening in the perihilar region. Pleural spaces: No pneumothorax. No pleural effusion. Heart: No cardiomegaly. No pericardial effusion. Lymph nodes: No enlarged lymph nodes. Bones/joints: Mild thoracolumbar junction scoliosis to the right similar to prior. Soft tissues: Bilateral breast implants. IMPRESSION: 1. Mild bilateral lower lobe inhalational or infectious endobronchial disease, likely a minor pneumonia given the history. 2. No pulmonary emboli are seen. 3. Incidental findings as described. Dictated and Authenticated by: Anitha March MD. Ordering:JUDSON Chris MD
[2021-07-22] MEDS: Doxycycline Hyclate 100 MG CAP PO (00:11)
--- NOTE | 2021-07-22 00:27 | NUR.NOTE ---
Referral faxed to [facility] Juli Kothari for f/u of pneumonia and copd exacerbation raissa. Copy to care management as well to help patient get set up with home oxygen.Nursing Note:
[2021-07-22 00:46] VITALS: PULSE 68; RESP 19; RESP 2; O2SAT 92
[2021-07-22] MEDS: Albuterol/Ipratropium 3 ML UPD VIAL UPD (00:46)
[2021-07-22 01:26] VITALS: BP 112/62; PULSE 77; RESP 19; TEMP 37.2; O2SAT 93
== END 2021-07-22 01:06 | disposition home or self-care (01) ==
PROVIDERS: Emergency Provider Registered Nurse Emergency
DX: J44.1 Chronic obstructive pulmonary disease with (acute) exacerbation (principal); J18.9 Pneumonia, unspecified organism; R09.02 Hypoxemia; R07.9 Chest pain, unspecified; F17.210 Nicotine dependence, cigarettes, uncomplicated
CPT/HCPCS: 71275; 80053; 87040; 87635; 93005; 94640; 96374; 99285; 83735; 84484; 85025; 85610; 85730; 93010; 99284; J2930; J3490; J7620

== ENCOUNTER 2021-10-17 08:10 | Outpatient (CLI) | payer OTHER, MEDICAID, SELFPAY | END 2021-10-17 08:11 | disposition home or self-care (01) | LOC: DI.CARD 08:12 | PROVIDERS: Visit Provider Internal Medicine Cardiovascular Disease | DX: I48.91 Unspecified atrial fibrillation (principal); Z53.9 Procedure and treatment not carried out, unspecified reason | CPT/HCPCS: 93010 ==

== ENCOUNTER 2021-10-19 13:31 | Outpatient (CLI) | payer OTHER, MEDICAID, SELFPAY ==
--- NOTE | 2021-10-19 13:30 | RT.EKG_ITS ---
APPROVED REPORT Exam: Resting ECG Reason for Exam: on antiarrhythmic therapy Patient Location: O HR:73 bpm ECG Measurements Heart Rate 73 AXIS IN 155 P 88 QRSd 106 QRS 60 QT 426 T 74 QTc 470 Conclusion Sinus rhythm...normal P axis, V-rate 50- 99 Left ventricular hypertrophy...multiple voltage criteria
== END 2021-10-19 13:32 | disposition home or self-care (01) ==
LOC: DI.CARD 13:33
PROVIDERS: Visit Provider Internal Medicine Cardiovascular Disease
DX: Z79.899 Other long term (current) drug therapy (principal)
CPT/HCPCS: 93010

== ENCOUNTER → 2021-10-19 14:05 | Outpatient (BNVA) | payer OTHER, MEDICAID, SELFPAY | PROVIDERS: Visit Provider Internal Medicine Cardiovascular Disease | DX: I48.0 Paroxysmal atrial fibrillation (principal); Z79.899 Other long term (current) drug therapy; J44.9 Chronic obstructive pulmonary disease, unspecified; Z98.890 Other specified postprocedural states | CPT/HCPCS: 93005; 99214; 99213 ==

== ENCOUNTER 2022-02-01 20:48 | Outpatient (REF) | payer OTHER, MEDICAID, SELFPAY ==
[2022-02-03 11:45] LABS: COVID-19 RT-PCR UVMMC Result Negative (Negative)
== END 2022-02-01 20:49 | disposition home or self-care (01) ==
LOC: LBN 20:48
PROVIDERS: Visit Provider Physician Assistant Medical
DX: Z20.822 Contact with and (suspected) exposure to COVID-19 (principal); R05.8 Other specified cough
CPT/HCPCS: U0003; U0005

== ENCOUNTER 2022-06-14 10:18 | Outpatient (CLI) | payer OTHER, MEDICAID, SELFPAY | END 2022-06-14 10:19 | disposition home or self-care (01) | LOC: DI.CARD 10:19 | PROVIDERS: Visit Provider Internal Medicine Cardiovascular Disease | DX: R69 Illness, unspecified (principal) | CPT/HCPCS: 93010 ==

== ENCOUNTER 2022-11-14 17:56 | Emergency (ER) | payer OTHER, MEDICAID, SELFPAY ==
[2022-11-14] VITALS (70 sets, daily range): BP systolic 115–155; BP diastolic 58–86; PULSE 73–104; RESP 0–25; TEMP 36; O2SAT 80–100
--- NOTE | 2022-11-14 18:00 | RT.EKG_ITS ---
APPROVED REPORT Exam: Resting ECG Reason for Exam: sob Patient Location: E HR:83 bpm ECG Measurements Heart Rate 83 AXIS MA 150 P 79 QRSd 107 QRS 268 QT 391 T 58 QTc 445 Conclusion Sinus rhythm...normal P axis, V-rate 60- 99 Multiform ventricular premature complexes...short R-R, variable morphology Right ventricular hypertrophy...prominent R or R' w/ RAD or BRISEIDA sinus rhythm, normal axis, normal intervals, baseline artifact
--- NOTE | 2022-11-14 18:30 | DI.CT_ITS ---
Exam(s) CT CHEST/ABD/PEL W EXAM: CT CHEST/ABD/PEL W CLINICAL HISTORY: frail, fatigue, abd distenion, sob, concern for CA TECHNIQUE: Imaging Protocol: Axial computed tomography images with coronal and sagittal reformatted images were created and reviewed CONTRAST MATERIAL: Intravenous: Omnipaque 350 contrast volume:100 mL Oral: No COMPARISON: CT ABD PELVIS WITH CONTRAST from 02/20/[address] CHEST PE CTA from 07/21/2021 FINDINGS: CHEST: Tracheobronchial tree: Patent where visualized. Pulmonary parenchyma: No consolidation or dominant measurable mass. There is again seen scarring in t he left lower lobe. Visualized thyroid gland: There are few tiny subcentimeter nodules in the left lobe of the thyroid gl and. No follow-up is recommended. Mediastinum and Samanta: No dominant adenopathy or fluid collection. The esophagus is unremarkable. Pleura: No effusion or pneumothorax. Heart: The heart is not dilated. No coronary artery calcifications are seen. No pericardial effusion. Pulmonary arteries: No pulmonary emboli are identified. Aorta: Thoracic aorta non-dilated. No evidence of dissection. Atherosclerosis is present. Lymph nodes: Within normal limits. Soft tissues: There are bilateral breast implants. Bones:Within normal limits for the patient's age. ABDOMEN: Liver: Normal density. There is an unchanged cyst in the right lobe of the liver. No suspicious hepa tic masses are seen. Portal, Superior Mesenteric, and Splenic Veins: Unremarkable. Gallbladder and Biliary Tract: No radiodense calculus or dilation. Pancreas: Normal density, no abnormal calcifications or inflammatory process. Spleen: Normal. Adrenals: No masses seen. Kidneys: Normal size, contour and axis. No radiodense stones or obstructive uropathy. There is a simp le cyst which measures 1.9 x 1.9 cm. No follow-up is recommended. Abdominal Aorta: Abdominal portion non-dilated. Atherosclerosis is present. Bowel: No obstruction or bowel wall thickening. No evidence of appendicitis. Peritoneal Cavity: No ascites, collection or mesenteric inflammatory response. No free air. Lymph Nodes: Within normal limits. Bones: Within normal limits for the patient's age. Soft Tissues: Unremarkable. PELVIS: Bladder: Symmetric distention, no gross wall thickening. Reproductive Organs: Unremarkable as visualized. Lymph Nodes: Within normal limits. Bones: Within normal limits. IMPRESSION: 1. No acute abdominal or pelvic process. 2. No acute pulmonary process. RADIATION DOSE DELIVERED: 1,387.02mGy.cm Total DLP DATA REPOSITORY: All CT scans at this facility are submitted to the National Radiology Data Registry (NRDR) Dose Index Registry (DIR) with the [employer] (ACR). RADIATION OPTIMIZATION: All CT scans at this facility use at least one of these dose optimization te chniques: automated exposure control; mA and/or kV adjustment per patient size (includes targeted exa ms where dose is matched to clinical indication); or iterative reconstruction.
--- NOTE | 2022-11-14 18:35 | ED.GENADUL_ITS ---
Discharge Plan Disposition Patient Disposition: Home Discharge Details Chief Complaint: RespSymp Clinical Impression: Fatigue, Frailty Primary Care Provider: Denis Constantino ED Provider: Justyn Campos Home Meds and New Rx's Prescriptions: No Action calcium carbonate-vitamin D3 600 mg-5 mcg (200 unit) tablet 1 tab PO DAILY Qty: 90 3RF guaifenesin 200 mg tablet 200 mg PO QID PRN (Reason: cough) Qty: 60 0RF multivitamin [Daily Vitamin] 1 EACH tablet 1 ea PO DAILY omega-3 fatty acids 100 MG tablet,chewable 100 mg PO DAILY TECFIDERA 240 MG CAPSULE.DR 240 mg PO BID colchicine [Colcrys] 0.6 mg tablet 0.6 mg PO As Directed PRNQty: 3 Rx Instructions: 2 tabs initially then 1 tab 1 hour later fexofenadine-pseudoephedrine 180-240 mg tablet extended release 24 hr 1 tab PO QAM Qty: 90 4RF Hold Instructions: Home Medication placed on hold at Doctor's office fluocinonide 0.05 % solution 1 applic TP BID Qty: 60 4RF Rx Instructions: Apply to affected areas Eliquis 5 mg tablet 5 mg PO BID Qty: 180 4RF acetaminophen [Tylenol Arthritis Pain] 650 mg tablet extended release 650 mg PO Q12H PRN (Reason: pain) Qty: 180 4RF albuterol sulfate [ProAir HFA] 90 mcg/actuation HFA aerosol inhaler 2 puff IH Q6H PRN (Reason: shortness of breath or wheezing) Qty: 18 2RF fluticasone propionate 220 mcg/actuation HFA aerosol inhaler 2 puff IH BID Qty: 12 11RF Sudafed 24 Hour 240 mg tablet extended release 24 hr 240 mg PO DAILY PRN (Reason: nasal congestion) Qty: 30 11RF propranolol 20 mg tablet 20 mg PO BID PRN (Reason: tremor) Qty: 180 1RF Rx Instructions: Dosage increase gabapentin 100 mg capsule 200 mg PO TID Qty: 180 3RF magnesium L-lactate [Magtab] 84 mg tablet extended release 168 mg PO BID Qty: 180 2RF potassium chloride 10 mEq capsule, extended release 10 meq PO BID Qty: 180 4RF pantoprazole 40 mg tablet,delayed release (DR/EC) 40 mg PO DAILY Qty: 90 2RF glucosamine-chondroitin 500-400 mg capsule 1 cap PO TID Qty: 90 11RF Rx Instructions: give with meal/snack All Day Allergy (cetirizine) 10 mg capsule 10 mg PO DAILY PRN (Reason: allergy symptoms) Qty: 30 11RF Hold Instructions: Home Medication placed on hold at Doctor's office budesonide-formoterol [Symbicort] 160-4.5 mcg/actuation HFA aerosol inhaler 2 puff inhalation BID Qty: 10.2 0RF temazepam 15 mg capsule 15 mg PO BID PRN (Reason: insomnia) Qty: 60 2RF dextroamphetamine-amphetamine 30 mg tablet 30 mg PO BID MDD 60mg Qty: 56 0RF Rx Instructions: administer doses at least 4-6 hours apart dofetilide 250 mcg capsule See Rx Instructions .ROUTE .COMPLEX Qty: 180 3RF Dose Instruction: TAKE ONE CAPSULE BY MOUTH TWICE A DAY - TAKE AT 10AM AND 10PM Rx Instructions: TAKE ONE CAPSULE BY MOUTH TWICE A DAY - TAKE AT 10AM AND 10PM Discharge Instructions Instructions: Fatigue (ED) Additional Instructions: Please follow-up closely with your neurologist and primary care physician. Please return to the emergency department for any further needs. Medical Decision Making 67-year-old female history of MS, COPD, presents with worsening fatigue weight loss, low energy progress over the last several months nonfocal in nature, O2 reading earlier today 89% on room air, patient is a persistent smoker, currently normoxic no respiratory distress, however appears frail, dry pale skin multiple mota hemangiomas on abdomen, palpable abdominal mass right lower quadrant; concern for malignancy versus malnutrition versus dehydration versus viral infection versus pneumonia versus less likely progressive MS. Screening labs imaging including CT chest abdomen pelvis for malignancy screening urinalysis basic labs, fluids close reassessment of symptoms disposition pending results and reassessment 20: 53 patient resting comfortably no acute distress. Labs and imaging largely unremarkable. Consider progression of patient's neck mass. Patient is ambulatory and has close follow-up with her primary and neurologist. Given home care instructions and return precautions HPI General Date/Time Provider Initiated Documentation: 11/14/22 17:57 . HPI Narrative: 62-year-old female history of MS, COPD, presents with months of decreasing energy, weight loss, fatigue was noted by a physician and earlier today to have low oxygen to 89% on room air, persistent smoker no oxygen use at home. Related Data Home Medications Medication Instructions Recorded Confirmed multivitamin (Daily Vitamin tablet) 1 ea PO DAILY 12/19/12 09/14/22 omega-3 fatty acids 100 mg 100 mg PO DAILY 12/19/12 09/14/22 chewable tablet Tecfidera 240 mg PO BID 03/04/13 09/14/22 colchicine 0.6 mg tablet (Colcrys) 0.6 mg PO As Directed PRN #3 tabs 07/20/19 09/14/22 fexofenadine-pseudoephedrine ER 1 tab PO QAM #90 tabs 04/07/20 09/14/22 180 mg-240 mg tablet,ext.release 24 hr fluocinonide 0.05 % topical 1 applic topical BID #60 mL 09/16/20 09/14/22 solution apixaban 5 mg tablet (Eliquis) 5 mg PO BID #180 tabs 10/23/21 09/14/22 acetaminophen 650 mg 650 mg PO Q12H PRN pain #180 tabs 08/02/22 09/14/22 tablet,extended release (Tylenol Arthritis Pain) albuterol sulfate 90 mcg/actuation 2 puff inhalation Q6H PRN 08/02/22 09/14/22 aerosol inhaler (ProAir HFA) shortness of breath or wheezing #18 grams fluticasone propionate 220 2 puff inhalation BID #12 grams 08/02/22 09/14/22 mcg/actuation HFA aerosol inhaler pseudoephedrine HCl 240 mg 240 mg PO DAILY PRN nasal 08/13/22 09/14/22 tablet,extended release 24 hr congestion #30 tabs (Sudafed 24 Hour) propranolol 20 mg tablet 20 mg PO BID PRN tremor #180 08/15/22 09/14/22 tab-caps cetirizine 10 mg capsule (All Day 10 mg PO DAILY PRN allergy 08/22/22 09/14/22 Allergy (cetirizine)) symptoms #30 caps gabapentin 100 mg capsule 200 mg PO TID #180 caps 08/22/22 09/14/22 glucosamine-chondroitin 500 mg-400 1 cap PO TID #90 caps 08/22/22 09/14/22 mg capsule magnesium L-lactate 84 mg 168 mg PO BID #180 tabs 08/22/22 09/14/22 tablet,extended release (Magtab) pantoprazole 40 mg tablet,delayed 40 mg PO DAILY #90 tab-caps 08/22/22 09/14/22 release potassium chloride 10 mEq 10 meq PO BID #180 tab-caps 08/22/22 09/14/22 capsule,extended release calcium carbonate 600 mg-vitamin 1 tab PO DAILY #90 tabs 08/29/22 09/14/22 D3 5 mcg (200 unit) tablet budesonide-formoterol HFA 160 2 puff inhalation BID #10.2 grams 10/10/22 mcg-4.5 mcg/actuation aerosol inhaler (Symbicort) temazepam 15 mg capsule 15 mg PO BID PRN insomnia #60 10/22/22 tab-caps dextroamphetamine-amphetamine 30 30 mg PO BID #56 tabs 11/09/22 mg tablet dofetilide 250 mcg capsule See Rx Instructions .Route 11/09/22 .COMPLEX #180 caps guaifenesin 200 mg tablet 200 mg PO QID PRN cough #60 tabs 11/14/22 11/14/22 Previous Rx's Medication Instructions Recorded fexofenadine-pseudoephedrine ER 1 tab PO QAM #90 tabs 04/07/20 180 mg-240 mg tablet,ext.release 24 hr fluocinonide 0.05 % topical 1 applic topical BID #60 mL 09/16/20 solution apixaban 5 mg tablet (Eliquis) 5 mg PO BID #180 tabs 10/23/21 acetaminophen 650 mg 650 mg PO Q12H PRN pain #180 tabs 08/02/22 tablet,extended release (Tylenol Arthritis Pain) albuterol sulfate 90 mcg/actuation 2 puff inhalation Q6H PRN 08/02/22 aerosol inhaler (ProAir HFA) shortness of breath or wheezing #18 grams fluticasone propionate 220 2 puff inhalation BID #12 grams 08/02/22 mcg/actuation HFA aerosol inhaler pseudoephedrine HCl 240 mg 240 mg PO DAILY PRN nasal 08/13/22 tablet,extended release 24 hr congestion #30 tabs (Sudafed 24 Hour) propranolol 20 mg tablet 20 mg PO BID PRN tremor #180 08/15/22 tab-caps cetirizine 10 mg capsule (All Day 10 mg PO DAILY PRN allergy 08/22/22 Allergy (cetirizine)) symptoms #30 caps gabapentin 100 mg capsule 200 mg PO TID #180 caps 08/22/22 glucosamine-chondroitin 500 mg-400 1 cap PO TID #90 caps 08/22/22 mg capsule magnesium L-lactate 84 mg 168 mg PO BID #180 tabs 08/22/22 tablet,extended release (Magtab) pantoprazole 40 mg tablet,delayed 40 mg PO DAILY #90 tab-caps 08/22/22 release potassium chloride 10 mEq 10 meq PO BID #180 tab-caps 08/22/22 capsule,extended release calcium carbonate 600 mg-vitamin 1 tab PO DAILY #90 tabs 08/29/22 D3 5 mcg (200 unit) tablet budesonide-formoterol HFA 160 2 puff inhalation BID #10.2 grams 10/10/22 mcg-4.5 mcg/actuation aerosol inhaler (Symbicort) temazepam 15 mg capsule 15 mg PO BID PRN insomnia #60 10/22/22 tab-caps dextroamphetamine-amphetamine 30 30 mg PO BID #56 tabs 11/09/22 mg tablet dofetilide 250 mcg capsule See Rx Instructions .Route 11/09/22 .COMPLEX #180 caps guaifenesin 200 mg tablet 200 mg PO QID PRN cough #60 tabs 11/14/22 Allergies Allergy/AdvReac Type Severity Reaction Status Date / Time hydrocodone AdvReac Severe excessive Verified 11/14/22 14:32 sedation metoprolol AdvReac Intermediate fatigue Verified 11/14/22 14:32 rivaroxaban [From Xarelto] AdvReac fatigue Verified 11/14/22 14:32 General Stated Complaint: RespSymp CIERA: 3 Review of Systems Narrative: Review of Systems Constitutional: Fatigue, weight loss Eyes: negative ENT: negative Cardiovascular: negative Respiratory: negative Gastrointestinal: negative : negative Musculoskeletal: negative Skin: negative Neurologic: negative Psych: negative PFSH All Active Problems (Updated 11/14/22 @ 20:55 by Justyn Campos MD) Adult ADHD (Chronic 07/15/14) Atrial fibrillation and flutter (Chronic 05/26/15) No atrial fib since started on Tikosyn Chronic obstructive lung disease (Chronic) Conductive hearing loss, 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) Depressed bipolar I disorder (Chronic) GERD (gastroesophageal reflux disease) (Chronic 05/26/15) Intention tremor (Chronic) detention current use of antiarrhythmic medical therapy (Chronic 12/23/15) Osteopenia (Chronic) Seborrheic dermatitis of scalp (Chronic 03/13/16) Smoker (Chronic) 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) Multiple sclerosis, relapsing-remitting (Acute) Weight loss (Acute) Environmental and seasonal allergies (Chronic) Ceruminosis (Acute) COPD exacerbation (Acute) Fatigue (Acute) Frailty (Acute) Medical History Acute idiopathic gout involving toe of left foot (02/16/16) Asthma Atrial fibrillation status post cardioversion (12/23/15) Atrophic vaginitis (05/17/16) Chronic bronchitis COPD with chronic bronchitis Dysfunctional uterine bleeding Dyspnea Family hx-breast malignancy mother Ganglion cyst of finger of left hand Multiple sclerosis (06/25/09) Paroxysmal atrial fibrillation Pneumonia Polyp of colon Vaginal wall prolapse (04/16/12) Surgical History Augmentation mammoplasty IMPLANT Bilateral salpingectomy with oophorectomy History of bilateral ligation of fallopian tubes Family History Mother , 60's Cancer skin & breast cancer Father , 70's Cancer Bladder Social History Smoking/Tobacco Use Status: Current every day Tobacco Type: cigarettes Smoking packs per day: 1 Smoking cigarettes per day: 20.0 Tobacco: How many years used: 45 Quit status: considering quitting Second Hand Exposure: Yes Counseling given: provider counseling Smoking risk assessment performed?: Yes Alcohol Intake: former Drug use: Never Substance use type: does not use Adopted: No Foster care: No Household members: friend(s) Housing: house Number of Children: 1 Communication Needs: Corrective Lenses Do you need help understanding health information?: Rarely Pets and animals: Yes (Therapy dog) Pets and animals: dog(s) Sexually active: No Do you think of yourself as: straight/heterosexual Current gender identity: female What is your relationship status?: How often do you talk on the phone with friends or family?: once per week How often do you get together with friends or relatives?: decline to answer How often do you attend jewish or yazdanism services?: decline to answer Do you belong to any clubs or organized social groups?: no Panel score (0-1 are the most socially isolated patients): 0 What type of physical activity do you participate in: walking and yoga Duration: < 15 minutes/day Frequency: 3-4 times per week Kaye/Lutheran: No preference Special kaye needs: No Seatbelt use: always Drive intox or ride w/intox shuttle bus driver: No Do you feel safe at home: Yes Do you feel safe in your relationship?: Yes Exam Narrative Exam Narrative: Physical Examination General: alert, awake, cooperative, frail HEENT: normocephalic, atraumatic; PERRL, EOM intact, pale conjunctiva; no nasal discharge; moist mucous membranes, oral and pharyngeal mucosa normal, tolerating secretions Neck: supple, trachea midline; full ROM Chest: normal to inspection Respiratory: normal respiratory effort, speaking in full sentences, clear to aus cultation, no wheezing, rales or rhonchi Cardiac: regular rate, regular rhythm, S1S2 intact, no murmurs rubs or gallops GI: abdomen soft, non-tender, non-distended; palpable mass right lower quadrant Skin: Pale, dry, multiple mota hemangiomas pain in abdomen Neuro: AAOx3, normal speech, moving all extremities Extremities: No signs of trauma Psych: Appropriate mood and affect Course Vital Signs Vital signs: Vital Signs Temperature 36.0 C L 11/14/22 17:59 Pulse 86 11/14/22 17:59 Respiratory Rate 18 11/14/22 17:59 Blood Pressure 120/81 11/14/22 17:59 Pulse Oximetry 93 11/14/22 17:59 Temperature 36.0 C L 11/14/22 17:59 Temperature Source Tympanic 11/14/22 17:59 Pulse 79 11/14/22 18:27 Pulse 84 11/14/22 18:30 Respiratory Rate 22 11/14/22 18:30 Respiratory Effort Short of Breath 11/14/22 18:20 Blood Pressure 115/58 L 11/14/22 18:27 Blood Pressure Mean 73 11/14/22 18:27 Blood Pressure Position Sitting 11/14/22 17:59 Pulse Oximetry 91 L 11/14/22 18:30 Oxygen Delivery Method Room Air 11/14/22 17:59 Oxygen Flow Rate 0 11/14/22 17:59 Pain Level 3 11/14/22 17:59
[2022-11-14 18:43] LABS: Abs Immature Grans 0.05 10^3/uL (0.0-0.06); Absolute Basophil Count 0.07 10^3/uL (0.0-0.2); Absolute Lymphocyte Count 1.43 10^3/uL (1.2-3.4); Absolute Monocyte Count 0.87 10^3/uL (0.1-0.8); Basophils % 0.7; Eosinophils % 0.9; HCT 50.3 % (36.0-46.0); HGB 15.8 g/dL (11.2-15.7); Immature Grans % 0.5; Lymphocytes % 13.3; MCHC 31.4 % (32.0-36.0); MCV 102 fL (80-95); MPV 10.5 fL (8.0-11.0); Monocytes % 8.1; Neutrophils % 76.5; Platelet Count 272 10^3/uL (130-400); RBC 4.93 10^6/uL (3.93-5.22); RDW 12.9 % (11.7-14.6); RDW-SD 48.6 fL; WBC 10.72 10^3/uL (4.4-10.8)
[2022-11-14] MEDS: Normal Saline 1,000 ML 1000 ML IV (18:47)
[2022-11-14 19:06] LABS: ALT 23 U/L (14-59); AST 28 U/L (15-37); Albumin 4.1 g/dL (3.4-5.0); Alkaline Phosphatase 78 U/L (46-116); Anion Gap 4.7 mmol/L (3-11); BUN 34 mg/dL (7-18); Bilirubin, Total 1.2 mg/dL (0.2-1.0); CO2 34.3 mmol/L (21.0-32.0); Calcium 9.1 mg/dL (8.5-10.1); Chloride 104 mmol/L (98-107); Estimated GFR 61.36 (mL/min/1.73m2); Glucose 123 mg/dL (74-106); Potassium 4.6 mmol/L (3.5-5.1); Sodium 143 mmol/L (136-145); TSH (W/Ref FT4) 0.69 uIU/mL (0.36-3.74); Total Protein 7.8 g/dL (6.4-8.2)
[2022-11-14 19:10] LABS: Bilirubin Small (Negative); Blood Moderate (Negative); Clarity Cloudy (Clear); Glucose Negative (Negative); Ketones Negative (Negative); Leukocyte Esterase Trace (Negative); Nitrite Negative (Negative); Specific Gravity 1.025 (1.005-1.025); Urobilinogen 0.2 mg/dL (Up to 0.2)
[2022-11-14 19:21] LABS: COVID-19 PCR Negative (Negative); Influenza A PCR Negative (Negative); Influenza B PCR Negative (Negative); RSV PCR Negative (Negative)
[2022-11-14 19:22] LABS: Source Nasopharynx
[2022-11-14 19:25] LABS: Bacteria Many HPF (Negative); C & S Indicated? Yes; Casts 3-5 Hyaline LPF (Negative); Crystals Negative HPF (Negative); Epithelial Cells Rare HPF (Negative); Mucus Negative (Negative)
[2022-11-14] MEDS: Omnipaque 350 MG/ML 100 ML BTL IJ (19:27)
[2022-11-14] MEDS: Normal Saline - Diluent 50 ML VIAL IV (19:28)
--- NOTE | 2022-11-14 20:26 | DI.VRAD_ITS ---
PROCEDURE INFORMATION: Exam: CT Chest With Contrast; Diagnostic Exam date and time: 11/14/2022 7:27 PM Age: 67 years old Clinical indication: Other: Frail, fatigue, abd distenion, SOB, concern for CA; Shortness of breath TECHNIQUE: Imaging protocol: Diagnostic computed tomography of the chest with contrast. 3D rendering (Not supervised by radiologist): MIP and/or 3D reconstructed images were created by the technologist. Contrast material: OMNIPAQUE 350; Contrast volume: 100 ml; Contrast route: INTRAVENOUS (IV); COMPARISON: CT CHEST PE CTA 07/21/2021 10:37 PM FINDINGS: Lungs: Minimal left basilar subsegmental atelectasis versus scarring. No consolidation. No masses. Pleural spaces: Unremarkable. No pneumothorax. No pleural effusion. Heart: Unremarkable. No cardiomegaly. No pericardial effusion. Lymph nodes: Unremarkable. No enlarged lymph nodes. Vasculature: Unremarkable. No aortic aneurysm. Bones/joints: Unremarkable. No acute fracture. Soft tissues: Bilateral breast prostheses. IMPRESSION: No acute findings. PROCEDURE INFORMATION: Exam: CT Abdomen And Pelvis With Contrast Exam date and time: 11/14/2022 7:27 PM Age: 67 years old Clinical indication: Other: Frail, fatigue, abd distenion, SOB, concern for CA; Shortness of breath TECHNIQUE: Imaging protocol: Computed tomography of the abdomen and pelvis with contrast. 3D rendering (Not supervised by radiologist): MIP and/or 3D reconstructed images were created by the technologist. Contrast material: OMNIPAQUE 350; Contrast volume: 100 ml; Contrast route: INTRAVENOUS (IV); COMPARISON: CT ABD PELVIS WITH CONTRAST 02/20/2018 10:05 AM FINDINGS: Liver: Faint hypodensity in the right lobe of the liver too small to characterize. Fatty infiltration Gallbladder and bile ducts: Normal. No calcified stones. No ductal dilation. Pancreas: Normal. No ductal dilation. Spleen: Normal. No splenomegaly. Adrenal glands: Normal. No mass. Kidneys and ureters: Right renal cyst No hydronephrosis. Stomach and bowel: Unremarkable. No obstruction. No mucosal thickening. Appendix: No evidence of appendicitis. Intraperitoneal space: Unremarkable. No free air. No significant fluid collection. Vasculature: Unremarkable. No abdominal aortic aneurysm. Lymph nodes: Unremarkable. No enlarged lymph nodes. Urinary bladder: Unremarkable as visualized. Reproductive: Unremarkable as visualized. Bones/joints: Unremarkable. No acute fracture. Soft tissues: Unremarkable. IMPRESSION: No solid organ injury observed Dictated and Authenticated by: Alden Taylor MD. Ordering:DRAGAN Alejandra MD
[2022-11-14] MEDS: Albuterol/Ipratropium 3 ML UPD VIAL 9 ML UPD (21:11)
[2022-11-14] MEDS: Dexamethasone 10 MG/ML VIAL IVP (21:12)
[2022-11-14] MEDS: Albuterol 2.5 MG/3 ML INH SOLN VIAL UPD (21:50)
--- NOTE | 2022-11-14 22:21 | NUR.NOTE ---
Referral to Care Management to get patient on home oxygen raissa.Nursing Note:
[2022-11-14] MEDS: Albuterol HFA 8 GM 60 PUFF INH IH (22:40)
== END 2022-11-14 22:52 | disposition home or self-care (01) ==
PROVIDERS: Emergency Provider Emergency Medicine; PCP Nurse Practitioner Family
DX: R53.83 Other fatigue (principal); J44.9 Chronic obstructive pulmonary disease, unspecified; I48.91 Unspecified atrial fibrillation; F17.210 Nicotine dependence, cigarettes, uncomplicated; Z79.51 Long term (current) use of inhaled steroids; Z20.822 Contact with and (suspected) exposure to COVID-19
CPT/HCPCS: 36415; 74177; 80053; 87077; 87637; 93005; 94640; 96361; 96374; 99285; 71260; 81003; 81015; 84443; 85025; 87086; 87186; 93010; J1100; J3490; J7613; J7620

== ENCOUNTER 2022-11-16 01:12 | Outpatient (CLI) | payer OTHER, MEDICAID, SELFPAY ==
--- NOTE | 2022-11-16 15:07 | DI.RAD_ITS ---
Exam(s) XR CHEST 2V PA LATERAL EXAM: XR CHEST 2V PA LATERAL CLINICAL HISTORY: continued wheezing,EXAC COPD,J44.1. TECHNIQUE: 2D digital imaging was performed. COMPARISON: CR XR CHEST 2V PA LATERAL from 01/26/2021 FINDINGS: 2 views: Heart size is normal. The mediastinum is not widened. Lungs are clear. No infiltrates nor pleural effusions. IMPRESSION: No acute pulmonary findings. DATA REPOSITORY: RADIATION DOSE DELIVERED:
== END 2022-11-16 01:32 ==
LOC: DI 01:12
PROVIDERS: PCP Nurse Practitioner Family; Visit Provider Nurse Practitioner Family
DX: J44.1 Chronic obstructive pulmonary disease with (acute) exacerbation (principal); R06.2 Wheezing
CPT/HCPCS: 71046

== ENCOUNTER 2022-12-21 16:17 | Inpatient (IN) | payer OTHER, MEDICAID, SELFPAY ==
[2022-12-21] VITALS (42 sets, daily range): BP systolic 101–129; BP diastolic 61–87; PULSE 81–123; RESP 17–18; TEMP 36.6–37.6; O2SAT 87–95
--- NOTE | 2022-12-21 16:30 | DI.RAD_ITS ---
Exam(s) XR PELVIS AP XR FEMUR RT EXAM: XR PELVIS AP and XR femur RT CLINICAL HISTORY: Fall Hip Pain. TECHNIQUE: 2D digital imaging was performed.Six images were obtained. COMPARISON: CR,XR XR FEMUR RT from 12/21/2022 FINDINGS: BONES: There is a horizontal lucency seen in the medial aspect of the right femoral neck which may re present an nondisplaced fracture. No bony destructive lesion is seen. JOINTS: No dislocation present. Degenerative changes are seen in the hips with joint space narrowing. SOFT TISSUE: Phleboliths are seen in the pelvis. IMPRESSION: 1. Horizontal lucency seen in the medial aspect of the femoral neck which may represent a nondisplace d fracture. CT scan of the right hip is recommended for further evaluation. 2. Findings were discussed with Dot Doan at 7:05 p.m. on 12/21/2022. DATA REPOSITORY: RADIATION DOSE DELIVERED:
--- NOTE | 2022-12-21 16:40 | ED.GENADUL_ITS ---
Discharge Plan Disposition Patient Disposition: Admit to [facility] Condition: Stable Discharge Details Clinical Impression: Closed fracture of right hip Admit Date/Time: 12/21/22 20:12 Admit Provider: Justyn Almodovar Attending Provider: Justyn Almodovar Primary Care Provider: Denis Constantino ED Provider: Dot Doan Medical Decision Making 67-year-old female with a past medical history of ADHD, atrial fibrillation, COPD, relapsing remitting multiple sclerosis, osteopenia, who is a daily smoker presents with a fall yesterday and right hip and leg pain. She reports that she turned try to get her dog out of the way became dizzy and fell. She did fall on a wood floor. She denies hitting her head or any loss of consciousness no neck or back pain. She reports that her friend was there and helped her up. She states that she has had difficulty ambulating on the leg since the fall. On exam she does have a cool mottled ecchymotic right lower extremity, 2+ pitting edema bilateral extremities. She reports that this has been like this for the last year. She does normally walk without any aids. X-rays are within normal limits, will give pain medication and a lidocaine patch and oxycodone 2.5 [address] to road test. If patient is not able to weight-bear will consider CT. X-rays are within normal limits as noted below. Patient given oxycodone and a lidocaine patch, attempted ambulation by staff psychologist, patient is able to stand on i t however when she tries to walk her leg [place]. We will order a CT to rule out occult fracture. 1951: CT shows a mildly comminuted femoral neck fracture will page Clarice. Discussed CT results with patient who verbalized understanding. 2003: Spoke with Dr. Samuels regarding imaging he agrees to take patient to the OR tomorrow midmorning. He request hospitalist involvement for [facility]. Spoke with Dr. Almodovar who agrees to accept patient for admission. Holding orders will be placed. I did discuss plan with patient who verbalized understanding. This text was generated using Medicagoation system, please disregard any oddities of phrase or misspellings. Medical Records Medical records reviewed: Yes I reviewed the patient's medical records. Imaging Data Radiologic Study: Imaging: X-Ray Radiologist's impression: Imaging protocol: Radiologic exam of the pelvis. Views: 1 or 2 view. COMPARISON: CT CHEST/ABD/PEL W 11/14/2022 7:27 PM FINDINGS: Bones/joints: No acute fracture or dislocation. Mild degenerative changes the bilateral hips and sacroiliac joints. Soft tissues: Unremarkable. Vasculature: Pelvic phleboliths. IMPRESSION: No acute findings. If there is persistent pain or inability to bear weight, consider further evaluation with CT or MRI. Thank you for allowing us to participate in the care of your patient. Dictated and Authenticated by: Denis Ervin MD Radiologic Study #2: Imaging: CT Scan Radiologist's impression: COMPARISON: CT CHEST/ABD/PEL W 11/14/2022 7:27 PM FINDINGS: Bones/joints: Best appreciated on the sagittal images is a fracture at the femoral head/neck junction, mildly comminuted. On axial images, there is a component of impaction. There is associated soft tissue swelling in the intramuscular and subcutaneous regions. There are skeletal degenerative changes. Soft tissues: There are vascular calcifications. Normal appendix. There is some fluid in the presacral region which for which blood products are not excluded. IMPRESSION: 1. Best appreciated on the sagittal images is a fracture at the femoral head/neck junction, mildly comminuted. On axial images, there is a component of impaction. There is associated soft tissue swelling in the intramuscular and subcutaneous regions. 2. There is some fluid in the presacral region which for which blood products are not excluded. Other findings/details as above. Thank you for allowing us to participate in the care of your patient. Lab Data Lab results reviewed: Yes I reviewed the patient's lab results. Labs: Laboratory Tests Range/Units 12/21/22 12/21/22 12/21/22 16:45 16:45 16:45 WBC (4.4-10.8) 10^3/uL 12.98 H RBC (3.93-5.22) 10^6/uL 4.49 Hgb (11.2-15.7) g/dL 14.0 Hct (36.0-46.0) % 43.4 MCV (80-95) fL 97 H MCH (27.0-33.0) pg 31.2 MCHC (32.0-36.0) % 32.3 RDW (11.7-14.6) % 13.5 Plt Count (130-400) 10^3/uL 187 MPV (8.0-11.0) fL 10.2 Immature Gran % 0.3 Neutrophils % 83.8 Lymphocytes % 6.2 Monocytes % 8.8 Eosinophils % 0.5 Basophils % 0.4 Nucleated RBC % (0.0-0.3) % 0.0 Absolute Neutrophils (1.2-6.7) 10^3/uL 10.88 H Absolute Lymphocytes (1.2-3.4) 10^3/uL 0.80 L Absolute Monocytes (0.1-0.8) 10^3/uL 1.14 H Absolute Eosinophils (0.0-0.7) 10^3/uL 0.06 Absolute Basophils (0.0-0.2) 10^3/uL 0.05 PT (9.3-11.0) sec 12.8 H INR (0.9-1.1) 1.3 H APTT (21.5-31.9) sec 26.3 Sodium (136-145) mmol/L 140 Potassium (3.5-5.1) mmol/L 4.4 Chloride (98-107) mmol/L 101 Carbon Dioxide (21.0-32.0) mmol/L 33.4 H Anion Gap (3-11) mmol/L 5.6 BUN (7-18) mg/dL 43 H Creatinine (0.55-1.02) mg/dL 1.0 Est GFR (CKD-EPI 2020) (mL/min/1.73m2) 61.36 Glucose (74-106) mg/dL 206 H Calcium (8.5-10.1) mg/dL 9.2 Magnesium (1.8-2.4) mg/dL Total Bilirubin (0.2-1.0) mg/dL 1.2 H AST (15-37) U/L 20 ALT (14-59) U/L 27 Alkaline Phosphatase (46-116) U/L 92 Total Protein (6.4-8.2) g/dL 7.2 Albumin (3.4-5.0) g/dL 3.4 Add-On Test Request Range/Units 12/21/22 12/21/22 16:45 16:45 WBC (4.4-10.8) 10^3/uL RBC (3.93-5.22) 10^6/uL Hgb (11.2-15.7) g/dL Hct (36.0-46.0) % MCV (80-95) fL MCH (27.0-33.0) pg MCHC (32.0-36.0) % RDW (11.7-14.6) % Plt Count (130-400) 10^3/uL MPV (8.0-11.0) fL Immature Gran % Neutrophils % Lymphocytes % Monocytes % Eosinophils % Basophils % Nucleated RBC % (0.0-0.3) % Absolute Neutrophils (1.2-6.7) 10^3/uL Absolute Lymphocytes (1.2-3.4) 10^3/uL Absolute Monocytes (0.1-0.8) 10^3/uL Absolute Eosinophils (0.0-0.7) 10^3/uL Absolute Basophils (0.0-0.2) 10^3/uL PT (9.3-11.0) sec INR (0.9-1.1) APTT (21.5-31.9) sec Sodium (136-145) mmol/L Potassium (3.5-5.1) mmol/L Chloride (98-107) mmol/L Carbon Dioxide (21.0-32.0) mmol/L Anion Gap (3-11) mmol/L BUN (7-18) mg/dL Creatinine (0.55-1.02) mg/dL Est GFR (CKD-EPI 2020) (mL/min/1.73m2) Glucose (74-106) mg/dL Calcium (8.5-10.1) mg/dL Magnesium (1.8-2.4) mg/dL 2.0 Total Bilirubin (0.2-1.0) mg/dL AST (15-37) U/L ALT (14-59) U/L Alkaline Phosphatase (46-116) U/L Total Protein (6.4-8.2) g/dL Albumin (3.4-5.0) g/dL Add-On Test Request DONE HPI General Mode of arrival: EMS . Date/Time Provider Initiated Documentation: 12/21/22 16:28 . Limitations to Documentation: no limitations . Information obtained by: patient, EMS, RN notes reviewed and old records reviewed . HPI Narrative: 67-year-old female with a past medical history of ADHD, atrial fibrillation, COPD, relapsing remitting multiple sclerosis, osteopenia, who is a daily smoker presents with a fall yesterday and right hip and leg pain. She reports that she turned try to get her dog out of the way became dizzy and fell. She did fall on a wood floor. She denies hitting her head or any loss of consciousness no neck or back pain. She reports that her friend was there and helped her up. She states that she has had difficulty ambulating on the leg since the fall. On exam she does have a cool mottled ecchymotic right lower extremity, 2+ pitting edema bilateral extremities. She reports that this has been like this for the last year. She does normally walk without any aids. She did take an anti- inflammatory medication prior to arrival. Related Data Home Medications Medication Instructions Recorded Confirmed multivitamin (Daily Vitamin tablet) 1 ea PO DAILY 12/19/12 12/21/22 omega-3 fatty acids 100 mg 100 mg PO DAILY 12/19/12 12/21/22 chewable tablet Tecfidera 240 mg PO BID 03/04/13 12/10/22 colchicine 0.6 mg tablet (Colcrys) 0.6 mg PO As Directed PRN #3 tabs 07/20/19 12/10/22 fexofenadine-pseudoephedrine ER 1 tab PO QAM #90 tabs 04/07/20 12/10/22 180 mg-240 mg tablet,ext.release 24 hr fluocinonide 0.05 % topical 1 applic topical BID #60 mL 09/16/20 12/10/22 solution apixaban 5 mg tablet (Eliquis) 5 mg PO BID #180 tabs 10/23/21 12/10/22 acetaminophen 650 mg 650 mg PO Q12H PRN pain #180 tabs 08/02/22 12/21/22 tablet,extended release (Tylenol Arthritis Pain) albuterol sulfate 90 mcg/actuation 2 puff inhalation Q6H PRN 08/02/22 12/21/22 aerosol inhaler (ProAir HFA) shortness of breath or wheezing #18 grams pseudoephedrine HCl 240 mg 240 mg PO DAILY PRN nasal 08/13/22 12/10/22 tablet,extended release 24 hr congestion #30 tabs (Sudafed 24 Hour) propranolol 20 mg tablet 20 mg PO BID PRN tremor #180 08/15/22 12/10/22 tab-caps cetirizine 10 mg capsule (All Day 10 mg PO DAILY PRN allergy 08/22/22 12/10/22 Allergy (cetirizine)) symptoms #30 caps gabapentin 100 mg capsule 200 mg PO TID #180 caps 08/22/22 12/21/22 glucosamine-chondroitin 500 mg-400 1 cap PO TID #90 caps 08/22/22 12/10/22 mg capsule magnesium L-lactate 84 mg 168 mg PO BID #180 tabs 08/22/22 12/10/22 tablet,extended release (Magtab) pantoprazole 40 mg tablet,delayed 40 mg PO DAILY #90 tab-caps 08/22/22 12/10/22 release potassium chloride 10 mEq 10 meq PO BID #180 tab-caps 08/22/22 12/21/22 capsule,extended release calcium carbonate 600 mg-vitamin 1 tab PO DAILY #90 tabs 08/29/22 12/10/22 D3 5 mcg (200 unit) tablet temazepam 15 mg capsule 15 mg PO BID PRN insomnia #60 10/22/22 12/10/22 tab-caps dofetilide 250 mcg capsule See Rx Instructions .Route 11/09/22 12/10/22 .COMPLEX #180 caps cephalexin 500 mg tablet 500 mg PO TID #21 tabs 11/16/22 12/07/22 albuterol sulfate 2.5 mg/0.5 mL 5 mg inhalation Q4H #100 ea 12/07/22 12/21/22 solution for nebulization dextroamphetamine-amphetamine 30 30 mg PO BID #56 tabs 12/07/22 12/10/22 mg tablet guaifenesin 1,200 mg tablet, 1,200 mg PO BID #60 tabs 12/10/22 12/21/22 extended release 12 hr (Mucinex) tiotropium 2.5 mcg-olodaterol 2.5 2 puff inhalation DAILY #4 grams 12/10/22 12/21/22 mcg/actuation mist for inhalation (Stiolto Respimat) Previous Rx's Medication Instructions Recorded fexofenadine-pseudoephedrine ER 1 tab PO QAM #90 tabs 04/07/20 180 mg-240 mg tablet,ext.release 24 hr fluocinonide 0.05 % topical 1 applic topical BID #60 mL 09/16/20 solution apixaban 5 mg tablet (Eliquis) 5 mg PO BID #180 tabs 10/23/21 acetaminophen 650 mg 650 mg PO Q12H PRN pain #180 tabs 08/02/22 tablet,extended release (Tylenol Arthritis Pain) albuterol sulfate 90 mcg/actuation 2 puff inhalation Q6H PRN 08/02/22 aerosol inhaler (ProAir HFA) shortness of breath or wheezing #18 grams pseudoephedrine HCl 240 mg 240 mg PO DAILY PRN nasal 08/13/22 tablet,extended release 24 hr congestion #30 tabs (Sudafed 24 Hour) propranolol 20 mg tablet 20 mg PO BID PRN tremor #180 08/15/22 tab-caps cetirizine 10 mg capsule (All Day 10 mg PO DAILY PRN allergy 08/22/22 Allergy (cetirizine)) symptoms #30 caps gabapentin 100 mg capsule 200 mg PO TID #180 caps 08/22/22 glucosamine-chondroitin 500 mg-400 1 cap PO TID #90 caps 08/22/22 mg capsule magnesium L-lactate 84 mg 168 mg PO BID #180 tabs 08/22/22 tablet,extended release (Magtab) pantoprazole 40 mg tablet,delayed 40 mg PO DAILY #90 tab-caps 08/22/22 release potassium chloride 10 mEq 10 meq PO BID #180 tab-caps 08/22/22 capsule,extended release calcium carbonate 600 mg-vitamin 1 tab PO DAILY #90 tabs 08/29/22 D3 5 mcg (200 unit) tablet temazepam 15 mg capsule 15 mg PO BID PRN insomnia #60 10/22/22 tab-caps dofetilide 250 mcg capsule See Rx Instructions .Route 11/09/22 .COMPLEX #180 caps cephalexin 500 mg tablet 500 mg PO TID #21 tabs 11/16/22 albuterol sulfate 2.5 mg/0.5 mL 5 mg inhalation Q4H #100 ea 12/07/22 solution for nebulization dextroamphetamine-amphetamine 30 30 mg PO BID #56 tabs 12/07/22 mg tablet guaifenesin 1,200 mg tablet, 1,200 mg PO BID #60 tabs 12/10/22 extended release 12 hr (Mucinex) tiotropium 2.5 mcg-olodaterol 2.5 2 puff inhalation DAILY #4 grams 12/10/22 mcg/actuation mist for inhalation (Stiolto Respimat) Allergies Allergy/AdvReac Type Severity Reaction Status Date / Time hydrocodone AdvReac Severe excessive Verified 12/21/22 20:54 sedation metoprolol AdvReac Intermediate fatigue Verified 12/21/22 20:54 rivaroxaban [From Xarelto] AdvReac fatigue Verified 12/21/22 20:54 General Stated Complaint: Orthopedic CIERA: 3 Review of Systems All systems reviewed & are unremarkable except as noted in HPI and below Constitutional Constitutional: Reports frequent falls, Denies headache(s) and Reports weakness ENT Ears, Nose, Mouth, and Throat: Denies headache(s) Cardiovascular Cardiovascular: Reports as per HPI, Denies chest pain and Denies chest pain at rest Respiratory Respiratory: Reports cough Musculoskeletal Musculoskeletal: Reports as per HPI, Reports abnormal gait and Reports arthralgias Neurologic Neurologic: Reports abnormal gait, Reports frequent falls, Denies headache(s) and Reports weakness PFSH All Active Problems Closed fracture of right hip (Acute) Fracture of femoral neck, right (Acute 12/20/22) Hypoxia (Acute) Adult ADHD (Chronic 07/15/14) Atrial fibrillation and flutter (Chronic 05/26/15) No atrial fib since started on Tikosyn Chronic obstructive lung disease (Chronic) Conductive hearing loss, 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) Depressed bipolar I disorder (Chronic) GERD (gastroesophageal reflux disease) (Chronic 05/26/15) Intention tremor (Chronic) 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 (Chronic 12/23/15) Osteopenia (Chronic) Seborrheic dermatitis of scalp (Chronic 03/13/16) Smoker (Chronic) 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) Multiple sclerosis, relapsing-remitting (Acute) Weight loss (Acute) Environmental and seasonal allergies (Chronic) Ceruminosis (Acute) COPD exacerbation (Acute) Medical History Acute idiopathic gout involving toe of left foot (02/16/16) Asthma Atrial fibrillation status post cardioversion (12/23/15) Atrophic vaginitis (05/17/16) Chronic bronchitis COPD with chronic bronchitis Dysfunctional uterine bleeding Dyspnea Family hx-breast malignancy mother Ganglion cyst of finger of left hand Multiple sclerosis (06/25/09) Paroxysmal atrial fibrillation Pneumonia Polyp of colon Vaginal wall prolapse (04/16/12) Surgical History Augmentation mammoplasty IMPLANT Bilateral salpingectomy with oophorectomy History of bilateral ligation of fallopian tubes Family History Mother , 60's Cancer skin & breast cancer Father , 70's Cancer Bladder Social History Smoking/Tobacco Use Status: Current every day Tobacco Type: cigarettes Smoking packs per day: 1 Smoking cigarettes per day: 20.0 Tobacco: How many years used: 45 Quit status: considering quitting Second Hand Exposure: Yes Counseling given: provider counseling Smoking risk assessment performed?: Yes Alcohol Intake: former Drug use: Never Substance use type: does not use Adopted: No Foster care: No Household members: friend(s) Housing: house Number of Children: 1 Communication Needs: Corrective Lenses Do you need help understanding health information?: Rarely Pets and animals: Yes (Therapy dog) Pets and animals: dog(s) Sexually active: No Do you think of yourself as: straight/heterosexual Current gender identity: female What is your relationship status?: How often do you talk on the phone with friends or family?: once per week How often do you get together with friends or relatives?: decline to answer How often do you attend hoahaoism or episcopalian services?: decline to answer Do you belong to any clubs or organized social groups?: no Panel score (0-1 are the most socially isolated patients): 0 What type of physical activity do you participate in: walking and yoga Duration: < 15 minutes/day Frequency: 3-4 times per week Kaye/Rastafarian: No preference Special kaye needs: No Seatbelt use: always Drive intox or ride w/intox coach driver: No Do you feel safe at home: Yes Do you feel safe in your relationship?: Yes Exam Narrative Exam Narrative: General: Well Developed, Awake and Alert, conversant. Skin: Warm and Dry HEENT: Head: No palpable deformities, Normocephalic Eyes: Pupils PERRLA, EOM's intact. No periorbital eccymosis or step off Ears: Canal patent. Tympanic membranes are clear . No ji's sign, no hemptympanum. Nose/Face: Atraumatic. Facial bones nontender to palpation and stable with manipulation. Mouth/Throat: No intraoral trauma. Teeth and mandible are intact. Neck: No midline tenderness, no step off, no deformity to palpation of C-spine. Trachea midline. Chest: No surface trauma. Nontender without crepitus or deformity. Lungs clear to ausculatation bilaterally. Heart: RRR, no rubs, murmurs or gallop. Abdomen: No abrasions, ecchymosis, or surface trauma. Nondistended. Nontender to palpation no guarding, rebound, or rigidity. Pelvis: Nontender to palpation and stable to compression. Femoral pulses strong and equal Extremities: Decreased sensation of right lower extremity, it is cool to the touch, mottled ecchymotic with an abrasion noted to the anterior barba Neuro: ANO x4, GCS 15, cranial nerves II through XII intact. Motor and sensory exam nonfocal. Reflexes are symmetric. Course Vital Signs Vital signs: Vital Signs Temperature 36.6 C 12/21/22 16:19 Pulse 103 H 12/21/22 16:19 Respiratory Rate 18 12/21/22 16:19 Blood Pressure 128/87 12/21/22 16:19 Pulse Oximetry 92 12/21/22 16:19 Temperature 36.6 C 12/21/22 16:19 Temperature Source Tympanic 12/21/22 16:19 Pulse 103 H 12/21/22 16:19 Respiratory Rate 18 12/21/22 16:19 Blood Pressure 128/87 12/21/22 16:19 Blood Pressure Position Sitting 12/21/22 16:19 Pulse Oximetry 92 12/21/22 16:19 Oxygen Delivery Method Room Air 12/21/22 16:19 Oxygen Flow Rate 0 12/21/22 16:19 Pain Level 3 12/21/22 16:19 Comment hands very cold, hard to get O2 sat 12/21/22 16:19
[2022-12-21 16:50] LABS: Abs Immature Grans 0.04 10^3/uL (0.0-0.06); Absolute Basophil Count 0.05 10^3/uL (0.0-0.2); Absolute Monocyte Count 1.14 10^3/uL (0.1-0.8); Absolute Neutrophil Count 10.88 10^3/uL (1.2-6.7); Basophils % 0.4; Eosinophils % 0.5; HCT 43.4 % (36.0-46.0); Immature Grans % 0.3; Lymphocytes % 6.2; MCH 31.2 pg (27.0-33.0); MCHC 32.3 % (32.0-36.0); MCV 97 fL (80-95); MPV 10.2 fL (8.0-11.0); Monocytes % 8.8; Neutrophils % 83.8; Platelet Count 187 10^3/uL (130-400); RBC 4.49 10^6/uL (3.93-5.22); RDW 13.5 % (11.7-14.6); RDW-SD 47.6 fL; WBC 12.98 10^3/uL (4.4-10.8)
[2022-12-21 16:52] LABS: Absolute Eosinophil Count 0.06 10^3/uL (0.0-0.7)
[2022-12-21 17:03] LABS: INR 1.3 (0.9-1.1); PTT Activated 26.3 sec (21.5-31.9); Prothrombin Time 12.8 sec (9.3-11.0)
[2022-12-21 17:04] LABS: ALT 27 U/L (14-59); AST 20 U/L (15-37); Albumin 3.4 g/dL (3.4-5.0); Alkaline Phosphatase 92 U/L (46-116); Chloride 101 mmol/L (98-107); Potassium 4.4 mmol/L (3.5-5.1); Total Protein 7.2 g/dL (6.4-8.2)
[2022-12-21 17:16] LABS: Anion Gap 5.6 mmol/L (3-11); BUN 43 mg/dL (7-18); Bilirubin, Total 1.2 mg/dL (0.2-1.0); CO2 33.4 mmol/L (21.0-32.0); Calcium 9.2 mg/dL (8.5-10.1); Estimated GFR 61.36 (mL/min/1.73m2); Glucose 206 mg/dL (74-106); Sodium 140 mmol/L (136-145)
--- NOTE | 2022-12-21 17:40 | DI.VRAD_ITS ---
PROCEDURE INFORMATION: Exam: XR Right Femur Exam date and time: 12/21/2022 5:11 PM Age: 67 years old Clinical indication: Injury or trauma; Fall; Blunt trauma; Hip; Right TECHNIQUE: Imaging protocol: Radiologic exam of the right femur. Views: 2 views. COMPARISON: CR XR PELVIS AP 12/21/2022 5:10 PM FINDINGS: Bones/joints: No acute fracture or dislocation. Mild degenerative changes of the right femoroacetabular joint. Soft tissues: Unremarkable. IMPRESSION: No acute fracture. If there is persistent hip pain or inability to bear weight, consider further evaluation with CT or MRI. Dictated and Authenticated by: Denis Ervin MD. Ordering:JUDSON Chris MD
--- NOTE | 2022-12-21 17:41 | DI.VRAD_ITS ---
PROCEDURE INFORMATION: Exam: XR Pelvis Exam date and time: 12/21/2022 5:10 PM Age: 67 years old Clinical indication: Injury or trauma; Fall; Blunt trauma (contusions or hematomas); Left; Hip TECHNIQUE: Imaging protocol: Radiologic exam of the pelvis. Views: 1 or 2 view. COMPARISON: CT CHEST/ABD/PEL W 11/14/2022 7:27 PM FINDINGS: Bones/joints: No acute fracture or dislocation. Mild degenerative changes the bilateral hips and sacroiliac joints. Soft tissues: Unremarkable. Vasculature: Pelvic phleboliths. IMPRESSION: No acute findings. If there is persistent pain or inability to bear weight, consider further evaluation with CT or MRI. Dictated and Authenticated by: Denis Ervin MD. Ordering:JUDSON Chris MD
[2022-12-21] MEDS: oxyCODONE 5 MG TAB 2.5 MG PO (17:53)
[2022-12-21] MEDS: Lidocaine 5% Patch 1 PATCH TP (17:53)
--- NOTE | 2022-12-21 18:30 | DI.CT_ITS ---
Exam(s) CT LOWER EXTREMITY RT WO EXAM: CT LOWER EXTREMITY RT WO CLINICAL HISTORY: Fall, R/O Fracture. TECHNIQUE: Imaging Protocol: Axial computed tomography images with coronal and sagittal reformatted images were created and reviewed. COMPARISON: CT CT CHEST/ABD/PEL W from 11/14/2022 CR,XR XR PELVIS AP from 12/21/2022 CR,XR XR FEMUR RT from 12/21/2022 FINDINGS: Bones: There is an acute mildly comminuted subcapital fracture of the left right femoral neck. The right sacroiliac joint and symphysis pubis appear grossly unremarkable. No suspicious lytic or scler otic lesions are seen. There is mild narrowing of the right hip joint space. The bones are normally mineralized. Soft Tissues: There is mild edema seen in the surrounding soft tissues. Atherosclerosis is present. IMPRESSION: Comminuted mildly impacted subcapital femoral neck fracture. RADIATION DOSE DELIVERED: 208.4mGy.cm Total DLP 208.4mGy.cm Total DLP DATA REPOSITORY: All CT scans at this facility are submitted to the National Radiology Data Registry (NRDR) Dose Index Registry (DIR) with the [employer] ([employer]). RADIATION OPTIMIZATION: All CT scans at this facility use at least one of these dose optimization te chniques: automated exposure control; mA and/or kV adjustment per patient size (includes targeted exa ms where dose is matched to clinical indication); or iterative reconstruction.
--- NOTE | 2022-12-21 19:50 | DI.VRAD_ITS ---
PROCEDURE INFORMATION: Exam: CT Right Lower Extremity Without Contrast, Hip Exam date and time: 12/21/2022 7:06 PM Age: 67 years old Clinical indication: Injury or trauma; Other: Fall, R/O fracture; Injury date: 12/20/22 TECHNIQUE: Imaging protocol: CT of the right lower extremity without contrast was performed. Exam focused on the hip. COMPARISON: CT CHEST/ABD/PEL W 11/14/2022 7:27 PM FINDINGS: Bones/joints: Best appreciated on the sagittal images is a fracture at the femoral head/neck junction, mildly comminuted. On axial images, there is a component of impaction. There is associated soft tissue swelling in the intramuscular and subcutaneous regions. There are skeletal degenerative changes. Soft tissues: There are vascular calcifications. Normal appendix. There is some fluid in the presacral region which for which blood products are not excluded. IMPRESSION: 1. Best appreciated on the sagittal images is a fracture at the femoral head/neck junction, mildly comminuted. On axial images, there is a component of impaction. There is associated soft tissue swelling in the intramuscular and subcutaneous regions. 2. There is some fluid in the presacral region which for which blood products are not excluded. Other findings/details as above. Dictated and Authenticated by: Andree Barbour MD. Ordering:JUDSON Chris MD
--- NOTE | 2022-12-21 20:00 | DI.RAD_ITS ---
Exam(s) XR CHEST 2V PA LATERAL EXAM: XR CHEST 2V PA LATERAL CLINICAL HISTORY: Pre-op, Cough TECHNIQUE: 2D digital imaging was performed of the chest. Two images were obtained. AP and lateral views were obtained. COMPARISON: CR XR CHEST 2V PA LATERAL from 11/16/2022 FINDINGS: MEDIASTINUM: Normal. HEART: Cardiomegaly. It appears slightly worsened compared to the prior examination. PULMONARY VASCULATURE: Normal. LUNGS: The lungs are hyperinflated suggesting underlying COPD. No focal consolidating infiltrates ar e seen. PLEURAL SPACE: No pneumothorax. There is blunting posteriorly in the left hemithorax. This may repr esent scarring or pleural effusion. BONE:Within normal limits for the patient's age. OTHER FINDINGS:Normal. IMPRESSION: 1. No focal consolidating infiltrates. 2. Cardiomegaly. 3. Blunting of the posterior costophrenic angle which may represent scarring or pleural effusion. DATA REPOSITORY: RADIATION DOSE DELIVERED:
--- NOTE | 2022-12-21 20:04 | OCONE_ITS ---
Date of service: 12/22/22 Time of Service: 10:15 History of Present Illness Narrative: The 67-year-old female describes mechanical fall while twisting and losing strength/balance at home 2 days ago. Was able to somewhat bear weight for a day before calling an ambulance and presented to the emergency department yesterday afternoon due to persistent right hip pain. Significant ambulatory issues worsening over the past few years due to chronic issues including multiple sclerosis. Has not been using any assist device despite difficulties. No notable pre-existing hip problems or pain. Has been largely home?bound over the past few years, rarely leaving with minimal community ambulation since COVID. Current 1 pack/day smoker. Uses Eliquis for atrial fibrillation. Unclear on l ast dose, but sounds like the evening after the fall and probably not the morning after. Chronic venous stasis changes bilateral legs ankles and feet that have been worsening. Reports pain about the right hip and groin with some radiation down the thigh to the knee. No other orthopedic injuries. Her daughter Shoshana is with her in the hospital room. The patient has been living by herself prior to this admission Consult Reason Right hip fracture Assessment and Plan Assessment and plan (1) Fracture of femoral neck, right: Status: Acute Assessment and plan: 67 year old female with Right minimally displaced impacted femoral neck fracture Medical admission & optimization for surgery tomorrow: Right hip percutaneous cannulated screw fixation Hold Eliquis, NPO post midnight, IVF, bedrest/ NWB, SCDs, IS, and multimodal pain control Decision to proceed with surgery today The risks, benefits, and alternatives were thoroughly discussed. Patient was counseled regarding pain management, expected postoperative course, and recovery timeline. In particular, we discussed the nature of this less invasive method of hip fracture fixation being appropriate for this low?demand patient with minimally displaced fracture with potential near or intermission coordinator complication around 20% of requiring conversion to zoe or total hip arthroplasty. All questions were answered. Informed consent was obtained. Patient and her daughter agree and understand treatment plan. Patient currently has a significant cough, which is being treated by the nurse recycling program manager, as well as tachycardia likely related to her atrial fibrillation that is being monitored and treated by the hospitalist Review of Systems Narrative: Positive cough, weakness, gait instability, and as noted in HPI PFSH All Active Problems Closed fracture of right hip (Acute) Fracture of femoral neck, right (Acute 12/20/22) Hypoxia (Acute) Adult ADHD (Chronic 07/15/14) Atrial fibrillation and flutter (Chronic 05/26/15) No atrial fib since started on Tikosyn Chronic obstructive lung disease (Chronic) Conductive hearing loss, 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) Depressed bipolar I disorder (Chronic) GERD (gastroesophageal reflux disease) (Chronic 05/26/15) Intention tremor (Chronic) intermediate current use of antiarrhythmic medical therapy (Chronic 12/23/15) Osteopenia (Chronic) Seborrheic dermatitis of scalp (Chronic 03/13/16) Smoker (Chronic) 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) Multiple sclerosis, relapsing-remitting (Acute) Weight loss (Acute) Environmental and seasonal allergies (Chronic) Ceruminosis (Acute) COPD exacerbation (Acute) Medical History Acute idiopathic gout involving toe of left foot (02/16/16) Asthma Atrial fibrillation status post cardioversion (12/23/15) Atrophic vaginitis (05/17/16) Chronic bronchitis COPD with chronic bronchitis Dysfunctional uterine bleeding Dyspnea Family hx-breast malignancy mother Ganglion cyst of finger of left hand Multiple sclerosis (06/25/09) Paroxysmal atrial fibrillation Pneumonia Polyp of colon Vaginal wall prolapse (04/16/12) Surgical History Augmentation mammoplasty IMPLANT Bilateral salpingectomy with oophorectomy History of bilateral ligation of fallopian tubes Family History Mother , 60's Cancer skin & breast cancer Father , 70's Cancer Bladder Social History Smoking/Tobacco Use Status: Current every day Tobacco Type: cigarettes Smoking packs per day: 1 Smoking cigarettes per day: 20.0 Tobacco: How many years used: 45 Quit status: considering quitting Second Hand Exposure: Yes Counseling given: provider counseling Smoking risk assessment performed?: Yes Alcohol Intake: former Drug use: Never Substance use type: does not use Adopted: No Foster care: No Household members: friend(s) Housing: house Number of Children: 1 Communication Needs: Corrective Lenses Do you need help understanding health information?: Rarely Pets and animals: Yes (Therapy dog) Pets and animals: dog(s) Sexually active: No Do you think of yourself as: straight/heterosexual Current gender identity: female What is your relationship status?: How often do you talk on the phone with friends or family?: once per week How often do you get together with friends or relatives?: decline to answer How often do you attend yarsani or hoahaoism services?: decline to answer Do you belong to any clubs or organized social groups?: no Panel score (0-1 are the most socially isolated patients): 0 What type of physical activity do you participate in: walking and yoga Duration: < 15 minutes/day Frequency: 3-4 times per week Kaye/Moravian: No preference Special kaye needs: No Seatbelt use: always Drive intox or ride w/intox driver's education instructor: No Do you feel safe at home: Yes Do you feel safe in your relationship?: Yes Results Last Vital Signs Temp 97.8 F 12/21/22 16:19 Pulse 103 H 12/21/22 16:19 Resp 18 12/21/22 16:19 BP 128/87 12/21/22 16:19 Pulse Ox 92 12/21/22 16:19 Labs 12/21/22 16:45 12/21/22 16:45 Labs: Laboratory Results - last 24 hr 12/21/22 12/21/22 12/21/22 16:45 16:45 16:45 WBC 12.98 H RBC 4.49 Hgb 14.0 Hct 43.4 MCV 97 H MCH 31.2 MCHC 32.3 RDW 13.5 Plt Count 187 MPV 10.2 Immature Gran % 0.3 Neutrophils % 83.8 Lymphocytes % 6.2 Monocytes % 8.8 Eosinophils % 0.5 Basophils % 0.4 Nucleated RBC % 0.0 Absolute Neutrophils 10.88 H Absolute Lymphocytes 0.80 L Absolute Monocytes 1.14 H Absolute Eosinophils 0.06 Absolute Basophils 0.05 PT 12.8 H INR 1.3 H APTT 26.3 Sodium 140 Potassium 4.4 Chloride 101 Carbon Dioxide 33.4 H Anion Gap 5.6 BUN 43 H Creatinine 1.0 Est GFR (CKD-EPI 2020) 61.36 Glucose 206 H Calcium 9.2 Total Bilirubin 1.2 H AST 20 ALT 27 Alkaline Phosphatase 92 Total Protein 7.2 Albumin 3.4 Imaging Imaging Studies: Pelvis and hip x-rays show minimally?displaced right femoral neck fracture. External rotation positioning limits full interpretation. CT scan confirms minimally?displaced fracture with mild medial comminution and cyst formation. No significant pre-existing arthrosis. No separate fractures visualized pelvis femur or knee.
--- NOTE | 2022-12-21 21:01 | DI.VRAD_ITS ---
PROCEDURE INFORMATION: Exam: XR Chest Exam date and time: 12/21/2022 8:30 PM Age: 67 years old Clinical indication: Screening exam; Pre-operative exam; Other: Hip; Patient HX: Pre-op, cough TECHNIQUE: Imaging protocol: Radiologic exam of the chest. Views: 2 views. COMPARISON: CR XR CHEST 2V PA LATERAL 11/16/2022 2:55 PM FINDINGS: Lungs: Unremarkable. No consolidation. Pleural spaces: Unremarkable. No pleural effusion. No pneumothorax. Heart/Mediastinum: Cardiomegaly Bones/joints: Scoliosis IMPRESSION: No focal consolidation Dictated and Authenticated by: Lucina García MD. Ordering:JUDSON Chris MD
--- NOTE | 2022-12-21 21:20 | W.PM.HP.N ---
Date of service: 12/21/22 Time of Service: 21:21 Assessment and Plan Assessment and plan (1) Fracture of femoral neck, right: Status: Acute Assessment and plan: Mechanical fall after turn body quickly and feeling dizzy; ground level. Planned surgical repair tomorrow. Holding Eliquis. PRN acetaminophen and morphine. NPO (2) Chronic obstructive lung disease: Status: Chronic Assessment and plan: Cont home pulmonary medications. No current exacerbation. incentive spirometry. (3) Depressed bipolar I disorder: Status: Chronic Assessment and plan: Not on psychiatric medications. Does take temazepam prn at night for insomnia. (4) Intention tremor: Status: Chronic Assessment and plan: Cont prn propanolol. (5) Osteopenia: Status: Chronic Assessment and plan: On a calcium and Vit D supplementation. Will need to check with pharmacy to see what combo is available or give seperately. (6) Atrial fibrillation status post cardioversion: Assessment and plan: Cont dofetilide. Hold Eliquis ECG shows afib. Given 5mg IV metoprolol with improvement in rate control for a period of time but then rate increased again. Noted to have elevated BUN and given 1L NS; volume depletion may be driving the rapid rate, along with the hip trauma and likely elevated cortisol d/t pain. History of Present Illness History of Present Illness Chief Complaint: Right hip pain Narrative: This is a 67 yo female with a PMH of Afib, COPD, tobacco abuse disorder, ADHD, MS, osteopenia. She fell the day prior to presentation after she turned her body as she was trying to get her dog out of her way and developed dizziness. This caused her to fall to a wooden floor. No LOC, denies hitting head. No neck or back pain. No preceding rapid heart rate/palpitations or CP noted. A friend was present and helped her get up. Since the fall she has had pain and difficulty ambulating. Temperature ?36.6 C ?12/21/22 16:19 Pulse ?103 H ?12/21/22 16:19 Respiratory Rate ?18 ?12/21/22 16:19 Blood Pressure ?128/87 ?12/21/22 16:19 Pulse Oximetry ?92 ?12/21/22 16:19 WBC count 12.98. Hgb 14. Plt 187. Lytes normal. BUN 43. Creatinine 1.0. Glucose 206. Tot Bili 1.2. AST and ALT normal. Initial pelvis and R hip xrays read as normal. CT chest/abd/pelvis showed fx at the femoral head/neck junction that is mildly comminuted and a componenet of impaction. (best seen on sagittal images). Also noted was some fluid n the presacral region for which blood products are not excluded. Orthopedics, Dr Samuels consulted and plans on surgical repair tomorrow, 12/22/22 with a percutaneous cannulated screw fixation. Holding Eliquis. 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) Depressed bipolar I disorder (Chronic) GERD (gastroesophageal reflux disease) (Chronic 05/26/15) Intention tremor (Chronic) long-term current use of antiarrhythmic medical therapy (Chronic 12/23/15) Osteopenia (Chronic) Seborrheic dermatitis of scalp (Chronic 03/13/16) Smoker (Chronic) 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) Multiple sclerosis, relapsing-remitting (Acute) Weight loss (Acute) Environmental and seasonal allergies (Chronic) Ceruminosis (Acute) COPD exacerbation (Acute) Medical History Acute idiopathic gout involving toe of left foot (02/16/16) Asthma Atrial fibrillation status post cardioversion (12/23/15) Atrophic vaginitis (05/17/16) Chronic bronchitis COPD with chronic bronchitis Dysfunctional uterine bleeding Dyspnea Family hx-breast malignancy mother Ganglion cyst of finger of left hand Multiple sclerosis (06/25/09) Paroxysmal atrial fibrillation Pneumonia Polyp of colon Vaginal wall prolapse (04/16/12) Surgical History Augmentation mammoplasty IMPLANT Bilateral salpingectomy with oophorectomy History of bilateral ligation of fallopian tubes Family History Mother , 60's Cancer skin & breast cancer Father , 70's Cancer Bladder Social History Smoking/Tobacco Use Status: Current every day Tobacco Type: cigarettes Smoking packs per day: 1 Smoking cigarettes per day: 20.0 Tobacco: How many years used: 45 Quit status: considering quitting Second Hand Exposure: Yes Counseling given: provider counseling Smoking risk assessment performed?: Yes Alcohol Intake: former Drug use: Never Substance use type: does not use Adopted: No Foster care: No Household members: friend(s) Housing: house Number of Children: 1 Communication Needs: Corrective Lenses Do you need help understanding health information?: Rarely Pets and animals: Yes (Therapy dog) Pets and animals: dog(s) Sexually active: No Do you think of yourself as: straight/heterosexual Current gender identity: female What is your relationship status?: How often do you talk on the phone with friends or family?: once per week How often do you get together with friends or relatives?: decline to answer How often do you attend pentecostalism or methodist services?: decline to answer Do you belong to any clubs or organized social groups?: no Panel score (0-1 are the most socially isolated patients): 0 What type of physical activity do you participate in: walking and yoga Duration: < 15 minutes/day Frequency: 3-4 times per week Kaye/Christianity: No preference Special kaye needs: No Seatbelt use: always Drive intox or ride w/intox reefer truck driver: No Do you feel safe at home: Yes Do you feel safe in your relationship?: Yes Meds Allergies and Home Medications Allergies Allergy/AdvReac Type Severity Reaction Status Date / Time hydrocodone AdvReac Severe excessive Verified 12/21/22 20:54 sedation metoprolol AdvReac Intermediate fatigue Verified 12/21/22 20:54 rivaroxaban [From Xarelto] AdvReac fatigue Verified 12/21/22 20:54 Home Medications Medication Instructions Recorded Confirmed Type multivitamin (Daily Vitamin tablet) 1 ea PO DAILY 12/19/12 12/21/22 History omega-3 fatty acids 100 mg 100 mg PO DAILY 12/19/12 12/21/22 History chewable tablet Tecfidera 240 mg PO BID 03/04/13 12/10/22 History colchicine 0.6 mg tablet (Colcrys) 0.6 mg PO As Directed PRN #3 tabs 07/20/19 12/10/22 History fexofenadine-pseudoephedrine ER 1 tab PO QAM #90 tabs 04/07/20 12/10/22 Rx 180 mg-240 mg tablet,ext.release 24 hr fluocinonide 0.05 % topical 1 applic topical BID #60 mL 09/16/20 12/10/22 Rx solution apixaban 5 mg tablet (Eliquis) 5 mg PO BID #180 tabs 10/23/21 12/10/22 Rx acetaminophen 650 mg 650 mg PO Q12H PRN pain #180 tabs 08/02/22 12/21/22 Rx tablet,extended release (Tylenol Arthritis Pain) albuterol sulfate 90 mcg/actuation 2 puff inhalation Q6H PRN 08/02/22 12/21/22 Rx aerosol inhaler (ProAir HFA) shortness of breath or wheezing #18 grams pseudoephedrine HCl 240 mg 240 mg PO DAILY PRN nasal 08/13/22 12/10/22 Rx tablet,extended release 24 hr congestion #30 tabs (Sudafed 24 Hour) propranolol 20 mg tablet 20 mg PO BID PRN tremor #180 08/15/22 12/10/22 Rx tab-caps cetirizine 10 mg capsule (All Day 10 mg PO DAILY PRN allergy 08/22/22 12/10/22 Rx Allergy (cetirizine)) symptoms #30 caps gabapentin 100 mg capsule 200 mg PO TID #180 caps 08/22/22 12/21/22 Rx glucosamine-chondroitin 500 mg-400 1 cap PO TID #90 caps 08/22/22 12/10/22 Rx mg capsule magnesium L-lactate 84 mg 168 mg PO BID #180 tabs 08/22/22 12/10/22 Rx tablet,extended release (Magtab) pantoprazole 40 mg tablet,delayed 40 mg PO DAILY #90 tab-caps 08/22/22 12/10/22 Rx release potassium chloride 10 mEq 10 meq PO BID #180 tab-caps 08/22/22 12/21/22 Rx capsule,extended release calcium carbonate 600 mg-vitamin 1 tab PO DAILY #90 tabs 08/29/22 12/10/22 Rx D3 5 mcg (200 unit) tablet temazepam 15 mg capsule 15 mg PO BID PRN insomnia #60 10/22/22 12/10/22 Rx tab-caps dofetilide 250 mcg capsule See Rx Instructions .Route 11/09/22 12/10/22 Rx .COMPLEX #180 caps cephalexin 500 mg tablet 500 mg PO TID #21 tabs 11/16/22 12/07/22 Rx albuterol sulfate 2.5 mg/0.5 mL 5 mg inhalation Q4H #100 ea 12/07/22 12/21/22 Rx solution for nebulization dextroamphetamine-amphetamine 30 30 mg PO BID #56 tabs 12/07/22 12/10/22 Rx mg tablet guaifenesin 1,200 mg tablet, 1,200 mg PO BID #60 tabs 12/10/22 12/21/22 Rx extended release 12 hr (Mucinex) tiotropium 2.5 mcg-olodaterol 2.5 2 puff inhalation DAILY #4 grams 12/10/22 12/21/22 Rx mcg/actuation mist for inhalation (Stiolto Respimat) Exam Narrative Exam Narrative: General: Frail appearing femal. Awake and Alert, conversant. Skin: Warm and Dry w/o rashes/lesions Head:Normocephalic, no tenderness/contusions. Eyes: Pupils PERRLA, No periorbial ecchymosis, sclera clear. Neck: No midline tenderness, FROM Chest: No surface trauma. Nontender without crepitus or deformity. Lungs clear to ausculatation bilaterally. Nonlabored breathing. Heart: RRR, no rubs, murmurs Abdomen: Nondistended. Nontender to palpation no guarding, rebound. Extremities: Decreased sensation of right lower extremity, it is cool to the touch, mottled ecchymotic with an abrasion noted to the anterior barba. Tenderness in groin. Neuro: Decreased Right hip flexion d/t pain. No focal motor deficits. No facial asymmetry. . Results Labs 12/21/22 16:45 12/21/22 16:45 Labs: Laboratory Results - last 24 hr 12/21/22 12/21/22 12/21/22 16:45 16:45 16:45 WBC 12.98 H RBC 4.49 Hgb 14.0 Hct 43.4 MCV 97 H MCH 31.2 MCHC 32.3 RDW 13.5 Plt Count 187 MPV 10.2 Immature Gran % 0.3 Neutrophils % 83.8 Lymphocytes % 6.2 Monocytes % 8.8 Eosinophils % 0.5 Basophils % 0.4 Nucleated RBC % 0.0 Absolute Neutrophils 10.88 H Absolute Lymphocytes 0.80 L Absolute Monocytes 1.14 H Absolute Eosinophils 0.06 Absolute Basophils 0.05 PT 12.8 H INR 1.3 H APTT 26.3 Sodium 140 Potassium 4.4 Chloride 101 Carbon Dioxide 33.4 H Anion Gap 5.6 BUN 43 H Creatinine 1.0 Est GFR (CKD-EPI 2020) 61.36 Glucose 206 H Calcium 9.2 Total Bilirubin 1.2 H AST 20 ALT 27 Alkaline Phosphatase 92 Total Protein 7.2 Albumin 3.4 Last Vital Signs Temp 36.6 C 12/21/22 16:19 Pulse 110 H 12/21/22 20:15 Resp 18 12/21/22 16:19 BP 113/64 12/21/22 20:15 Pulse Ox 94 12/21/22 21:10 Time Spent Time spent with Patient: 40-54 minutes Time was spent: preparing to see the patient(eg.review tests), obtaining and/or reviewing separately otained hiistory, ordering medications,tests, procedures, referring, communicating with other health manager respiratory care and indepentently interpreting results
[2022-12-21 21:21] LABS: Source Nasal/Nares
[2022-12-21 21:24] LABS: Lab Add On Test DONE
[2022-12-21 21:57] LABS: COVID-19 PCR Negative (Negative)
[2022-12-21 22:01] LABS: Bilirubin Negative (Negative); Blood Trace-intact (Negative); Clarity Clear (Clear); Glucose Negative (Negative); Ketones Trace mg/dL (Negative); Leukocyte Esterase Negative (Negative); Nitrite Negative (Negative); Specific Gravity >= 1.030 (1.005-1.025); pH 5.5 (5-8)
[2022-12-21 22:11] LABS: Bacteria Negative HPF (Negative); C & S Indicated? No; Casts Negative LPF (Negative); Crystals Negative HPF (Negative); Epithelial Cells Few HPF (Negative); Mucus Negative (Negative); Other Cells Negative (Negative); WBC 0-2 HPF (0-5)
[2022-12-21] MEDS: Dofetilide 250 MCG CAP PO (22:53)
[2022-12-22] VITALS (33 sets, daily range): BP systolic 96–141; BP diastolic 56–85; PULSE 78–140; RESP 14–28; TEMP 36.4–37.6; O2SAT 89–99; BMI 23.1
[2022-12-22] MEDS: Normal Saline Flush 10 ML SYR IVP (00:25)
[2022-12-22] MEDS: Metoprolol 5 MG/5 ML VIAL IVP ×2 (00:25→21:54)
[2022-12-22] MEDS: Acetaminophen 325 MG TAB 650 MG PO ×2 (00:48→08:58)
[2022-12-22] MEDS: Normal Saline 1,000 ML 1000 ML IV (03:07)
--- NOTE | 2022-12-22 04:00 | RT.EKG_ITS ---
APPROVED REPORT Exam: Resting ECG Reason for Exam: OR in AM Patient Location: I HR:122 bpm ECG Measurements Heart Rate 122 AXIS SC [id number] P [id number] QRSd 108 QRS 133 QT 370 T 45 QTc 527 Conclusion Atrial fibrillation...V-rate 87-124, irreg A-activity Paired ventricular premature complexes...sequence of 2 V complexes Probable right ventricular hypertrophy...prominent R or R' w/ RAD or BRISEIDA Prolonged QT interval...QTc >500mS
[2022-12-22 06:16] LABS: Abs Immature Grans 0.03 10^3/uL (0.0-0.06); Absolute Basophil Count 0.05 10^3/uL (0.0-0.2); Absolute Eosinophil Count 0.24 10^3/uL (0.0-0.7); Absolute Lymphocyte Count 1.53 10^3/uL (1.2-3.4); Absolute Monocyte Count 1.11 10^3/uL (0.1-0.8); Basophils % 0.6; Eosinophils % 2.7; HCT 36.3 % (36.0-46.0); HGB 11.5 g/dL (11.2-15.7); Immature Grans % 0.3; Lymphocytes % 17.3; MCH 30.5 pg (27.0-33.0); MCHC 31.7 % (32.0-36.0); MCV 96 fL (80-95); MPV 10.9 fL (8.0-11.0); Monocytes % 12.5; Neutrophils % 66.6; Platelet Count 178 10^3/uL (130-400); RBC 3.77 10^6/uL (3.93-5.22); RDW 13.7 % (11.7-14.6); RDW-SD 47.9 fL; WBC 8.86 10^3/uL (4.4-10.8)
[2022-12-22 06:28] LABS: Anion Gap 7.4 mmol/L (3-11); BUN 35 mg/dL (7-18); CO2 29.6 mmol/L (21.0-32.0); CREATININE 0.8 mg/dL (0.55-1.02); Calcium 8.3 mg/dL (8.5-10.1); Chloride 105 mmol/L (98-107); Estimated GFR 80.21 (mL/min/1.73m2); Glucose 103 mg/dL (74-106); Potassium 4.1 mmol/L (3.5-5.1); Sodium 142 mmol/L (136-145)
[2022-12-22] MEDS: Metoprolol 5 MG/5 ML VIAL 2.5 MG IVP (06:39)
--- NOTE | 2022-12-22 08:45 | DI.RAD_ITS ---
Exam(s) XR HIP RT IN OR EXAM: XR HIP RT IN OR CLINICAL HISTORY: RIGHT HIP FX CANNULATED REPAIR TECHNIQUE: 2D and realtime digital imaging was performed. CONTRAST MATERIAL: Refer to procedure report. COMPARISON: CR,XR XR PELVIS AP from 12/21/2022 FINDINGS: Fluoroscopy was provided for Dr. Samuels during the performance of a internal fixation right hip fract ure. Please refer to the procedure report for complete details. Ka,r=5.84 mGy IMPRESSION: RADIATION DOSE DELIVERED:
[2022-12-22] MEDS: Glucosamine/Chondroitin CAP 1 CAP PO ×2 (08:56→20:21)
[2022-12-22] MEDS: Magnesium Lactate-SR 84 MG TABCR 168 MG PO ×2 (08:56→20:21)
[2022-12-22] MEDS: Gabapentin 100 MG CAP 200 MG PO ×3 (08:57→20:21)
[2022-12-22] MEDS: Multivitamin TAB 1 TAB PO (08:57)
[2022-12-22] MEDS: Pantoprazole 40 MG TABCR PO (08:57)
[2022-12-22] MEDS: guaiFENesin 600 MG TABCR 1200 MG PO ×2 (08:58→20:21)
[2022-12-22] MEDS: Potassium Chloride 10 MEQ CAPCR PO ×2 (08:58→20:21)
--- NOTE | 2022-12-22 09:40 | INITIAL_ITS ---
- If Service Date Differs Date of service: 12/22/22 Time of Service: 09:40 Care Management Initial Assess REASON FOR HOSPITALIZATION:: Fracture of femoral neck, right PAST MEDICAL HISTORY/PAST SURGICAL HISTORY:: All Active Problems . Closed fracture of right hip (Acute). Fracture of femoral neck, right (Acute 12/20/22). Hypoxia (Acute). Adult ADHD (Chronic 07/15/14). Atrial fibrillation and flutter (Chronic 05/26/15). No atrial fib since started on Tikosyn. Chronic obstructive lung disease (Chronic). 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 Depressed bipolar I disorder (Chronic). GERD (gastroesophageal reflux disease) (Chronic 05/26/15). Intention tremor (Chronic). 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 Osteopenia (Chronic). Seborrheic dermatitis of scalp (Chronic 03/13/16). Smoker (Chronic). 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 Multiple sclerosis, relapsing-remitting (Acute). Weight loss (Acute). Environmental and seasonal allergies (Chronic). Ceruminosis (Acute). COPD exacerbation (Acute). Medical History . Acute idiopathic gout involving toe of left foot (02/16/16). Asthma. Atrial fibrillation status post cardioversion (12/23/15). Atrophic vaginitis (05/17/16). Chronic bronchitis. COPD with chronic bronchitis. Dysfunctional uterine bleeding. Dyspnea. Family hx-breast malignancy. mother. Ganglion cyst of finger of left hand. Multiple sclerosis (06/25/09). Paroxysmal atrial fibrillation. Pneumonia. Polyp of colon. Vaginal wall prolapse (04/16/12). Surgical History . Augmentation mammoplasty. IMPLANT. Bilateral salpingectomy with oophorectomy. History of bilateral ligation of fallopian tubes PREVIOUS FUNCTIONAL STATUS/SOCIAL/FAMILY SUPPORTS:: Renu lives in [facility] with her friend Kit and her dog. Her daughter lives locally and is supportive. Per pt, she is able to drive, but doesn't have a car. She uses [facility] for transportation. Per pt she is independent with her ADL's at baseline. CURRENT FUNCTIONAL STATUS:: Renu was sitting up in her chair when CM met with her. She is awake and engages in conversation. PT joined the conversation and provided their recommendation which is SNF for STR, Renu is agreeable and would like to stay local if possible. Per pt, she lives close to [facility] and also understands that they are closed to admissions at this time. CM will continue to follow. ADVANCE DIRECTIVES:: None Has patient been provided with info about the portal/API?: Yes Did the patient sign up for the portal?: No CODE STATUS:: Full Code INSURANCE COVERAGE / FINANCIAL ISSUES:: [employer]. Medicaid PRIMARY CARE PHYSICIAN:: Denis Smith POTENTIAL DISCHARGE NEEDS:: Follow up appointment with Ortho and PCP. [facility] PT vs Outpt PT. Therapy dog PATIENT/FAMILY EDUCATION NEEDS:: Review discharge instructions, limitations and plan to follow up with community providers. Discuss ask me three. ANTICIPATED BARRIERS TO DISCHARGE:: None identified TRANSPORTATION:: Via private vehicle with family. PLAN:: Anticipate, Renu will discharge to SNF for STR prior to discharging home. Transportation will be dependent on dispo. Renu will follow up with community providers and discharge plan of care as prescribed. CM will continue to support discharge planning conciderations.
--- NOTE | 2022-12-22 10:01 | W.ANESPRE ---
General Info Date of Service Date Performed: 12/22/22 Height: 5 ft 4 in Weight: 61.054 kg Body Mass Index (BMI): 23.1 Surgical Procedure: Operation Date: 12/22/22 10:00 Proposed Procedure Side Surgeon p Hip Cannulated Fx Right Gregorio Samuels MD Meds Allergies and Home Medications Allergies Allergy/AdvReac Type Severity Reaction Status Date / Time hydrocodone AdvReac Severe excessive Verified 12/21/22 20:54 sedation metoprolol AdvReac Intermediate fatigue Verified 12/21/22 20:54 rivaroxaban [From Xarelto] AdvReac fatigue Verified 12/21/22 20:54 Home Medication Medication Instructions Recorded multivitamin (Daily Vitamin tablet) 1 ea PO DAILY 12/19/12 omega-3 fatty acids 100 mg 100 mg PO DAILY 12/19/12 chewable tablet Tecfidera 240 mg PO BID 03/04/13 colchicine 0.6 mg tablet (Colcrys) 0.6 mg PO As Directed PRN #3 tabs 07/20/19 fexofenadine-pseudoephedrine ER 1 tab PO QAM #90 tabs 04/07/20 180 mg-240 mg tablet,ext.release 24 hr fluocinonide 0.05 % topical 1 applic topical BID #60 mL 09/16/20 solution apixaban 5 mg tablet (Eliquis) 5 mg PO BID #180 tabs 10/23/21 acetaminophen 650 mg 650 mg PO Q12H PRN pain #180 tabs 08/02/22 tablet,extended release (Tylenol Arthritis Pain) albuterol sulfate 90 mcg/actuation 2 puff inhalation Q6H PRN 08/02/22 aerosol inhaler (ProAir HFA) shortness of breath or wheezing #18 grams pseudoephedrine HCl 240 mg 240 mg PO DAILY PRN nasal 08/13/22 tablet,extended release 24 hr congestion #30 tabs (Sudafed 24 Hour) propranolol 20 mg tablet 20 mg PO BID PRN tremor #180 08/15/22 tab-caps cetirizine 10 mg capsule (All Day 10 mg PO DAILY PRN allergy 08/22/22 Allergy (cetirizine)) symptoms #30 caps gabapentin 100 mg capsule 200 mg PO TID #180 caps 08/22/22 glucosamine-chondroitin 500 mg-400 1 cap PO TID #90 caps 08/22/22 mg capsule magnesium L-lactate 84 mg 168 mg PO BID #180 tabs 08/22/22 tablet,extended release (Magtab) pantoprazole 40 mg tablet,delayed 40 mg PO DAILY #90 tab-caps 08/22/22 release potassium chloride 10 mEq 10 meq PO BID #180 tab-caps 08/22/22 capsule,extended release calcium carbonate 600 mg-vitamin 1 tab PO DAILY #90 tabs 08/29/22 D3 5 mcg (200 unit) tablet temazepam 15 mg capsule 15 mg PO BID PRN insomnia #60 10/22/22 tab-caps dofetilide 250 mcg capsule See Rx Instructions .Route 11/09/22 .COMPLEX #180 caps cephalexin 500 mg tablet 500 mg PO TID #21 tabs 11/16/22 albuterol sulfate 2.5 mg/0.5 mL 5 mg inhalation Q4H #100 ea 12/07/22 solution for nebulization dextroamphetamine-amphetamine 30 30 mg PO BID #56 tabs 12/07/22 mg tablet guaifenesin 1,200 mg tablet, 1,200 mg PO BID #60 tabs 12/10/22 extended release 12 hr (Mucinex) tiotropium 2.5 mcg-olodaterol 2.5 2 puff inhalation DAILY #4 grams 12/10/22 mcg/actuation mist for inhalation (Stiolto Respimat) Current Visit Medications: Current Medications Generic Name Dose Route Start Last Admin Trade Name Freq PRN Reason Stop Dose Admin Acetaminophen 650 mg 12/22/22 00:39 12/22/22 08:58 Acetaminophen 325 Mg Tab PO 650 mg Q4H PRN PRN Administration Albuterol Sulfate 2 puff 12/22/22 07:42 Albuterol Hfa 8 Gm 60 Puff Inh IH Q6H PRN PRN shortness of breath or wheezing Albuterol/Ipratropium 1 puff 12/22/22 08:29 Ipratropium/Albuterol 4 Gm 120 Puff Inh IH Q6H PRN PRN Cetirizine HCl 10 mg 12/22/22 07:43 Cetirizine 10 Mg Tab PO DAILY PRN PRN allergy symptoms Device 1 each 12/21/22 22:00 Inhaler, Assist Device MC DIRECTED KELLEN Dimethicone/Zinc Oxide 0 gm 12/21/22 21:05 Keely Protect Cream 142 Gm Tube TP PRN PRN Dofetilide 250 mcg 12/21/22 22:00 12/21/22 22:53 Dofetilide 250 Mcg Cap PO 250 mcg 1000,2200 KELLEN Administration Gabapentin 200 mg 12/22/22 08:30 12/22/22 08:57 Gabapentin 100 Mg Cap PO 200 mg TID KELLEN Administration Glucosamine/Chondroitin 1 cap 12/22/22 08:30 12/22/22 08:56 Glucosamine/Chondroitin Cap PO 1 cap TID KELLEN Administration Guaifenesin 1,200 mg 12/22/22 08:30 12/22/22 08:58 Guaifenesin 600 Mg Tabcr PO 1,200 mg BID KELLEN Administration Sodium Chloride 500 mls @ 0 mls/hr 12/21/22 20:12 Saline 500ml Bag IV PRN PRN As Directed IV Miscellaneous Supplies 1 each 12/21/22 20:15 Iv Access IV DIRECTED KELLEN Magnesium 168 mg 12/22/22 08:30 12/22/22 08:56 Magnesium Lactate-Sr 84 Mg Tabcr PO 168 mg BID KELLEN Administration Morphine Sulfate 2 mg 12/21/22 20:12 Morphine 2 Mg/Ml Syr IVP Q1H PRN PRN Multivitamins 1 tab 12/22/22 08:30 12/22/22 08:57 Multivitamin Tab PO 1 tab DAILY KELLEN Administration Nicotine 14 mg 12/21/22 21:21 Nicotine 14 Mg/24 Hr Patch TD DAILY PRN PRN Non-Formulary Medication 240 mg 12/22/22 08:30 Tecfidera PO BID KELLEN Ondansetron HCl 4 mg 12/21/22 20:12 Ondansetron 4 Mg/2 Ml Vial IVP Q4H PRN PRN Pantoprazole Sodium 40 mg 12/22/22 07:30 12/22/22 08:57 Pantoprazole 40 Mg Tabcr PO 40 mg DAILY@0730 KELLEN Administration Potassium Chloride 10 meq 12/22/22 08:30 12/22/22 08:58 Potassium Chloride 10 Meq Capcr PO 10 meq BID KELLEN Administration Propranolol HCl 20 mg 12/22/22 08:09 Propranolol 20 Mg Tab PO BID PRN PRN tremor Sodium Chloride 0 ml 12/21/22 20:12 Normal Saline Flush 10 Ml Syr IVP PRN PRN Temazepam 15 mg 12/22/22 08:09 Temazepam 15 Mg Cap PO BID PRN PRN insomnia Tiotropium Fishtail/Olodaterol 2 puff 12/22/22 08:30 Tiotropium/Olodaterol 10 Puff Inhaler IH DAILY KELLEN PFSH Active Problems Active Problems: Problem Status Onset Code Closed fracture of right hip S72.001A Fracture of femoral neck, right 12/20/22 S72.001A Hypoxia R09.02 Adult ADHD 07/15/14 F90.9 Atrial fibrillation and flutter 05/26/15 Chronic obstructive lung disease J44.9 Conductive hearing loss, external ear 05/26/15 H90.2 Depressed bipolar I disorder F31.9 GERD (gastroesophageal reflux disease) 05/26/15 K21.9 Intention tremor G25.2 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 12/23/15 Z79.899 Osteopenia M85.80 Seborrheic dermatitis of scalp 03/13/16 L21.9 Smoker F17.200 Spondylosis of cervical region without myelopathy or radiculopathy 08/16/16 M47.812 Multiple sclerosis, relapsing-remitting G35 Weight loss R63.4 Environmental and seasonal allergies J30.89 Ceruminosis H61.20 COPD exacerbation J44.1 Medical History Medical History Acute idiopathic gout involving toe of left foot (02/16/16) Asthma Atrial fibrillation status post cardioversion (12/23/15) Atrophic vaginitis (05/17/16) Chronic bronchitis COPD with chronic bronchitis Dysfunctional uterine bleeding Dyspnea Family hx-breast malignancy mother Ganglion cyst of finger of left hand Multiple sclerosis (06/25/09) Paroxysmal atrial fibrillation Pneumonia Polyp of colon Vaginal wall prolapse (04/16/12) Surgical History Surgical History Augmentation mammoplasty IMPLANT Bilateral salpingectomy with oophorectomy History of bilateral ligation of fallopian tubes Tobacco Smoking/Tobacco Use Status: Current every day Tobacco Type: cigarettes Smoking packs per day: 1 Smoking cigarettes per day: 20.0 Passive smoking exposure: Yes Second hand exposure: Yes Counseling given: provider counseling Alcohol Alcohol Intake: former Substance Use Substance use: Never Substance use type: does not use Vital Signs and Lab Results Vital Signs Most Recent Vital Signs in EMR: Most Recent Vital Signs Temp Pulse Resp BP Pulse Ox 37.2 C 122 H 17 122/71 98 12/22/22 07:16 12/22/22 08:44 12/22/22 07:16 12/22/22 07:16 12/22/22 07:16 Lab Results 12/22/22 05:35 12/22/22 05:35 Blood Type / Crossmatch: No Data to Display Complete Blood Count: White Blood Count 8.86 10^3/uL (4.4-10.8) 12/22/22 05:35 Red Blood Count 3.77 10^6/uL (3.93-5.22) L 12/22/22 05:35 Hemoglobin 11.5 g/dL (11.2-15.7) 12/22/22 05:35 Hematocrit 36.3 % (36.0-46.0) 12/22/22 05:35 Platelet Count 178 10^3/uL (130-400) 12/22/22 05:35 Complete Metabolic Panel: Sodium 142 mmol/L (136-145) 12/22/22 05:35 Potassium 4.1 mmol/L (3.5-5.1) 12/22/22 05:35 Chloride 105 mmol/L (98-107) 12/22/22 05:35 Carbon Dioxide 29.6 mmol/L (21.0-32.0) 12/22/22 05:35 BUN 35 mg/dL (7-18) H 12/22/22 05:35 Creatinine 0.8 mg/dL (0.55-1.02) 12/22/22 05:35 Est GFR (CKD-EPI 2020) 80.21 (mL/min/1.73m2) 12/22/22 05:35 Magnesium 2.0 mg/dL (1.8-2.4) 12/21/22 16:45 Calcium 8.3 mg/dL (8.5-10.1) L 12/22/22 05:35 Albumin 3.4 g/dL (3.4-5.0) 12/21/22 16:45 Glucose 103 mg/dL (74-106) 12/22/22 05:35 Liver Function Panel: Alanine Aminotransferase (ALT/SGPT) 27 U/L (14-59) 12/21/22 16:45 Aspartate Amino Transf (AST/SGOT) 20 U/L (15-37) 12/21/22 16:45 Coagulation Panel: INR International Normalized Ratio 1.3 (0.9-1.1) H 12/21/22 16:45 Prothrombin Time 12.8 sec (9.3-11.0) H 12/21/22 16:45 Activated Partial Thromboplast Time 26.3 sec (21.5-31.9) 12/21/22 16:45 Cardiac Panel: No Data to Display Arterial Blood Gas: No Data to Display Venous Blood Gas: No Data to Display Pancreas Panel: No Data to Display Thyroid Panel: No Data to Display Infectious Disease: Coronavirus (COVID-19)(PCR) Negative (Negative) 12/21/22 21:19 Coronavirus 2019 Source Nasal/Nares 12/21/22 21:19 Blood Cultures: No Data to Display Toxicology Panel: No Data to Display Imaging and Studies Imaging and Studies Study information below may be from another EMR and interpreted by another provider. Please see original notes in EMR for more complete details. EKG Summary: 12/22/2022: AFib Echocardiogram Summary: 06/22/2015: Summary: 1. Left ventricle: The cavity size was at the upper limits of normal. Wall thickness was normal. Systolic function was mildly to moderately reduced. The estimated ejection fraction was 40-45%. Diffuse hypokinesis. 2. Aortic valve: Mild regurgitation. 3. Mitral valve: Mild regurgitation. 4. Left atrium: The atrium was mildly to moderately dilated. 5. Right ventricle: The cavity size was normal. Wall thickness was normal. Systolic function was low normal. 6. Right atrium: The atrium was mildly dilated. Anesthesia Assessment and Plan Anesthesia History Personal History: No History of Anesthesia Complications Family History: No Family History of Anesthesia Complications Exercise Tolerance Exercise Tolerance: Metabolic Equivalents>4 Pertinent Negatives Pertinent Negatives: No Symptoms of GERD Cardiac & Pulmonary Exam Cardiac Exam: Normal S1/S2 Heart Sounds Pulmonary Exam: Rhonchi Present (Left lobe, diminished. Wet cough. Plan for preoperative albuterol nebulizer.) Implantable Cardiac Device Does patient have a Pacemaker or an ICD?: No Airway Exam Known Difficult Airway: No Mallampati Class: 3 Mouth Opening: Normal (> 3cm) Thyromental Distance: Greater than 3 cm Neck Range of Motion: Full ROM Neck Circumference: Normal Teeth Condition: Normal Dentition ASA Classification ASA Score: ASA 3 Emergency Case?: No NPO Status NPO Status: NPO Clears >2 hours, Solids >8 hours Anesthesia Plan Resuscitation Status: Full Code Anesthesia Technique: General Anesthesia Airway Planned: Endotracheal Tube Monitors Used: Standard Monitors
[2022-12-22] MEDS: Albuterol 2.5 MG/3 ML INH SOLN VIAL (10:40)
[2022-12-22] MEDS: Lactated Ringers 1,000 ML 30 ML IV (10:50)
[2022-12-22] MEDS: ceFAZolin 2 GM/50 ML BAG 100 GM (11:20)
[2022-12-22] MEDS: Bupivacaine 0.25% Pres-Free W/EPI 30 ML VIAL (11:58)
--- NOTE | 2022-12-22 12:20 | ROE_ITS ---
Date of service: 12/22/22 Time of Service: 12:21 Operative Note Operative Note DATE OF PROCEDURE: 12/22/22 PRE-OP DIAGNOSIS: Right minimally displaced femoral neck fracture POST-OP DIAGNOSIS: same PROCEDURE: Right hip percutaneous cannulated scew internal fixation, CPT #27979 SURGEON: Gregorio Samuels INTERDISCIPLINARY PROFESSOR: None None ANESTHESIA TYPE: Local By Surgeon and General LMA/ETT Refer to Anesthesia Record ESTIMATED BLOOD LOSS: 3 COMPLICATIONS: None Patient was transported to: PACU Patient's condition: stable Implants: Synthes 7.3mm cannulated partially threaded screws: Inferior 80mm with 32mm threads, Anterior and Posterior 75mm with 16mm threads Indications: Please see medical record for details Findings: Stable, minimally displaced impacted femoral neck fracture Procedure Description: In the operating room, general anesthesia was induced. The patient was transferred and positioned supine on the fracture table. All bony prominences were well padded. Pre-operative antibiotics were administered. C-arm fluoroscopy was used to confirm appropriate fracture position. The correct patient, procedure, and side of the procedure were all verified prior to incision. Local anesthetic with epinephrine was infiltrated about the planned lateral start area superficially and deep to the bone. C-arm fluoroscopy was used to locate the appropriate start point for the inferior screw centrally and at about the level of the lesser trochanter. Through a stab incision, the threaded guidewire was carefully directed into the inferior femoral neck and head stopping in subchondral bone. Position was confirmed on orthogonal views. Through an additional superior stab incision, an additional posterior superior threaded guidewire was directed into the posterior superior femoral head and a last third threaded guidewire directed into the anterior superior femoral head. Wire positions were scrutinized and appropriate. The cannulated drill used to open the lateral cortex only over each guidewire. Depth gauge used to measure depth subtracting about 5 mm from each threaded tip in subchondral bone. The longer 32 mm threads were chosen for the inferior screw to prevent fracture subsidence and collapse through a cyst visualized on the CT scan. This screw was inserted. The posterior and anterior screws were inserted. The screws were then sequentially tightened superior before inferior. The superior posterior screw had minimal purchase so it was removed and exchanged for a screw 5 mm longer that had much better bone fixation without being too long. Final AP and lateral fluoroscopic images were taken and confirmed appropriate fracture position and cannulated screw placement. The 2 small skin incisions were closed using 3-0 Monocryl buried. Skin glue was applied. Both incisions were covered with Mepilex Band-Aid. The patient awoke from anesthesia without complication and was transferred to the recovery room in stable condition.
--- NOTE | 2022-12-22 12:28 | W.PM.PROGNOT ---
Date of Service Date of service: 12/22/22 Time of Service: 12:45 Assessment and Plan Assessment and plan (1) Fracture of femoral neck, right: Status: Acute Assessment and plan: 67 year old female POD#0 status post Right hip percutaneous cannulated screw fixation Comfortable, resting in PACU. Right hip bandage clean, dry, and intact. Thigh compartments soft. No skin breakdown. Right leg ankle foot mottling and edema stable. 1+ posterior tibial pulse. Resting leg lengths and rotation fairly symmetrical. Postoperative antibiotics, diet, PT, OT, and IV fluid orders done. Continue multimodal pain control. Weightbearing as tolerated right hip with walker. Discontinue Jay catheter postop day #1. May resume Eliquis tomorrow morning as chemical DVT prophylaxis tomorrow assuming hemodynamically stable Continue mechanical DVT prophylaxis with SCDs Discharge when medically appropriate Follow-up with Dr. Samuels outpatient [facility] in 2 to 3 weeks Appreciate medical management Objective Last Vital Signs Temp 99.0 F 12/22/22 07:16 Pulse 122 H 12/22/22 08:44 Resp 17 12/22/22 07:16 BP 122/71 12/22/22 07:16 Pulse Ox 98 12/22/22 07:16 Laboratory Results - last 24 hr 12/21/22 12/21/22 12/21/22 16:45 16:45 16:45 WBC 12.98 H RBC 4.49 Hgb 14.0 Hct 43.4 MCV 97 H MCH 31.2 MCHC 32.3 RDW 13.5 Plt Count 187 MPV 10.2 Immature Gran % 0.3 Neutrophils % 83.8 Lymphocytes % 6.2 Monocytes % 8.8 Eosinophils % 0.5 Basophils % 0.4 Nucleated RBC % 0.0 Absolute Neutrophils 10.88 H Absolute Lymphocytes 0.80 L Absolute Monocytes 1.14 H Absolute Eosinophils 0.06 Absolute Basophils 0.05 PT 12.8 H INR 1.3 H APTT 26.3 Sodium 140 Potassium 4.4 Chloride 101 Carbon Dioxide 33.4 H Anion Gap 5.6 BUN 43 H Creatinine 1.0 Est GFR (CKD-EPI 2020) 61.36 Glucose 206 H Calcium 9.2 Magnesium Total Bilirubin 1.2 H AST 20 ALT 27 Alkaline Phosphatase 92 Total Protein 7.2 Albumin 3.4 Urine Color Urine Clarity Urine pH Ur Specific Briggs Urine Protein Urine Ketones Urine Blood Urine Nitrite Urine Bilirubin Urine Urobilinogen Ur Leukocyte Esterase Urine RBC Urine WBC Ur Epithelial Cells Urine Crystals Urine Bacteria Urine Casts Urine Mucus Urine Other Ur Culture Indicated? Urine Glucose COVID-19 Source SARS-CoV-2 (PCR) Add-On Test Request 12/21/22 12/21/22 12/21/22 16:45 16:45 21:19 WBC RBC Hgb Hct MCV MCH MCHC RDW Plt Count MPV Immature Gran % Neutrophils % Lymphocytes % Monocytes % Eosinophils % Basophils % Nucleated RBC % Absolute Neutrophils Absolute Lymphocytes Absolute Monocytes Absolute Eosinophils Absolute Basophils PT INR APTT Sodium Potassium Chloride Carbon Dioxide Anion Gap BUN Creatinine Est GFR (CKD-EPI 2020) Glucose Calcium Magnesium 2.0 Total Bilirubin AST ALT Alkaline Phosphatase Total Protein Albumin Urine Color Urine Clarity Urine pH Ur Specific Briggs Urine Protein Urine Ketones Urine Blood Urine Nitrite Urine Bilirubin Urine Urobilinogen Ur Leukocyte Esterase Urine RBC Urine WBC Ur Epithelial Cells Urine Crystals Urine Bacteria Urine Casts Urine Mucus Urine Other Ur Culture Indicated? Urine Glucose COVID-19 Source Nasal/Nares SARS-CoV-2 (PCR) Negative Add-On Test Request DONE 12/21/22 12/22/22 12/22/22 21:38 05:35 05:35 WBC 8.86 RBC 3.77 L Hgb 11.5 D Hct 36.3 MCV 96 H MCH 30.5 MCHC 31.7 L RDW 13.7 Plt Count 178 MPV 10.9 Immature Gran % 0.3 Neutrophils % 66.6 Lymphocytes % 17.3 Monocytes % 12.5 Eosinophils % 2.7 Basophils % 0.6 Nucleated RBC % 0.0 Absolute Neutrophils 5.90 Absolute Lymphocytes 1.53 Absolute Monocytes 1.11 H Absolute Eosinophils 0.24 Absolute Basophils 0.05 PT INR APTT Sodium 142 Potassium 4.1 Chloride 105 Carbon Dioxide 29.6 Anion Gap 7.4 BUN 35 H Creatinine 0.8 Est GFR (CKD-EPI 2020) 80.21 Glucose 103 Calcium 8.3 L Magnesium Total Bilirubin AST ALT Alkaline Phosphatase Total Protein Albumin Urine Color Yellow Urine Clarity Clear Urine pH 5.5 Ur Specific Briggs >= 1.030 H Urine Protein 100 H Urine Ketones Trace H Urine Blood Trace-intact H Urine Nitrite Negative Urine Bilirubin Negative Urine Urobilinogen 1.0 H Ur Leukocyte Esterase Negative Urine RBC 3-5 H Urine WBC 0-2 Ur Epithelial Cells Few Urine Crystals Negative Urine Bacteria Negative Urine Casts Negative Urine Mucus Negative Urine Other Negative Ur Culture Indicated? No Urine Glucose Negative COVID-19 Source SARS-CoV-2 (PCR) Add-On Test Request Time Spent with Patient Time Spent with Patient: <25 minutes Time was spent: ordering medications,tests, procedures and referring, communicating with other health client care consultant
[2022-12-22] MEDS: Albuterol/Ipratropium 3 ML UPD VIAL (13:00)
--- NOTE | 2022-12-22 14:06 | PGE_ITS ---
Date of Service Date of service: 12/22/22 Time of Service: 14:06 Assessment and Plan Assessment and plan (1) Fracture of femoral neck, right: Status: Acute Assessment and plan: Mechanical fall after turn body quickly and feeling dizzy; ground level. Surgery today Holding Eliquis. PRN acetaminophen and morphine. NPO; resume full diet post op (2) Low oxygen saturation: Status: Acute Assessment and plan: When patient arrived to the OR her SPO2 was 88% on RA; she is a smoker. Post exubation post op anesthesia reports having a hard time getting her O2 back to baseline. She is on 4 LPM of oxygen per nasal cannula with SPO2 ~93-95%. She is considerably drowsy post op, has slowed RR but rodney average 10-12 bpm. IS Acapella Continuous pulse ox Duoneb prn (3) Chronic obstructive lung disease: Status: Chronic Assessment and plan: Cont home pulmonary medications. No current exacerbation. Current smoker - offer nicotine replacement incentive spirometry. Acapella (4) Depressed bipolar I disorder: Status: Chronic Assessment and plan: Not on psychiatric medications. Does take temazepam prn at night for insomnia. (5) Intention tremor: Status: Chronic Assessment and plan: Cont prn propanolol. (6) Osteopenia: Status: Chronic Assessment and plan: On a calcium and Vit D supplementation. (7) Atrial fibrillation status post cardioversion: Assessment and plan: Cont dofetilide. Hold Eliquis; resume 12/23 ECG shows afib. Discussed with Dr Boswell Subjective Subjective Interval history since last seen: In OR Exam Narrative Exam Narrative: General: Frail appearing femal. Asleep, just out of PACU; alert to voice Skin: Warm and Dry w/o rashes/lesions Head:Normocephalic, no tenderness/contusions. Eyes: Pupils PERRLA, No periorbial ecchymosis, sclera clear. Neck: No midline tenderness, FROM Chest: No surface trauma. Nontender without crepitus or deformity. Lungs clear to ausculatation bilaterally. Nonlabored breathing. Heart: RRR, no rubs, murmurs Abdomen: Nondistended. Nontender to palpation no guarding, rebound. Extremities: Decreased sensation of right lower extremity, it is cool to the touch, mottled ecchymotic with an abrasion noted to the anterior barba. Tenderness in groin. Neuro: Decreased Right hip flexion d/t pain. No focal motor deficits. No facial asymmetry. . Objective Last Vital Signs Temp 36.5 C 12/22/22 13:50 Pulse 103 H 12/22/22 13:50 Resp 14 12/22/22 13:50 BP 113/67 12/22/22 13:50 Pulse Ox 99 12/22/22 13:50 Laboratory Results - last 24 hr 12/21/22 12/21/22 12/21/22 16:45 16:45 16:45 WBC 12.98 H RBC 4.49 Hgb 14.0 Hct 43.4 MCV 97 H MCH 31.2 MCHC 32.3 RDW 13.5 Plt Count 187 MPV 10.2 Immature Gran % 0.3 Neutrophils % 83.8 Lymphocytes % 6.2 Monocytes % 8.8 Eosinophils % 0.5 Basophils % 0.4 Nucleated RBC % 0.0 Absolute Neutrophils 10.88 H Absolute Lymphocytes 0.80 L Absolute Monocytes 1.14 H Absolute Eosinophils 0.06 Absolute Basophils 0.05 PT 12.8 H INR 1.3 H APTT 26.3 Sodium 140 Potassium 4.4 Chloride 101 Carbon Dioxide 33.4 H Anion Gap 5.6 BUN 43 H Creatinine 1.0 Est GFR (CKD-EPI 2020) 61.36 Glucose 206 H Calcium 9.2 Magnesium Total Bilirubin 1.2 H AST 20 ALT 27 Alkaline Phosphatase 92 Total Protein 7.2 Albumin 3.4 Urine Color Urine Clarity Urine pH Ur Specific [place] Urine Protein Urine Ketones Urine Blood Urine Nitrite Urine Bilirubin Urine Urobilinogen Ur Leukocyte Esterase Urine RBC Urine WBC Ur Epithelial Cells Urine Crystals Urine Bacteria Urine Casts Urine Mucus Urine Other Ur Culture Indicated? Urine Glucose COVID-19 Source SARS-CoV-2 (PCR) Add-On Test Request 12/21/22 12/21/22 12/21/22 16:45 16:45 21:19 WBC RBC Hgb Hct MCV MCH MCHC RDW Plt Count MPV Immature Gran % Neutrophils % Lymphocytes % Monocytes % Eosinophils % Basophils % Nucleated RBC % Absolute Neutrophils Absolute Lymphocytes Absolute Monocytes Absolute Eosinophils Absolute Basophils PT INR APTT Sodium Potassium Chloride Carbon Dioxide Anion Gap BUN Creatinine Est GFR (CKD-EPI 2020) Glucose Calcium Magnesium 2.0 Total Bilirubin AST ALT Alkaline Phosphatase Total Protein Albumin Urine Color Urine Clarity Urine pH Ur Specific [place] Urine Protein Urine Ketones Urine Blood Urine Nitrite Urine Bilirubin Urine Urobilinogen Ur Leukocyte Esterase Urine RBC Urine WBC Ur Epithelial Cells Urine Crystals Urine Bacteria Urine Casts Urine Mucus Urine Other Ur Culture Indicated? Urine Glucose COVID-19 Source Nasal/Nares SARS-CoV-2 (PCR) Negative Add-On Test Request DONE 12/21/22 12/22/22 12/22/22 21:38 05:35 05:35 WBC 8.86 RBC 3.77 L Hgb 11.5 D Hct 36.3 MCV 96 H MCH 30.5 MCHC 31.7 L RDW 13.7 Plt Count 178 MPV 10.9 Immature Gran % 0.3 Neutrophils % 66.6 Lymphocytes % 17.3 Monocytes % 12.5 Eosinophils % 2.7 Basophils % 0.6 Nucleated RBC % 0.0 Absolute Neutrophils 5.90 Absolute Lymphocytes 1.53 Absolute Monocytes 1.11 H Absolute Eosinophils 0.24 Absolute Basophils 0.05 PT INR APTT Sodium 142 Potassium 4.1 Chloride 105 Carbon Dioxide 29.6 Anion Gap 7.4 BUN 35 H Creatinine 0.8 Est GFR (CKD-EPI 2020) 80.21 Glucose 103 Calcium 8.3 L Magnesium Total Bilirubin AST ALT Alkaline Phosphatase Total Protein Albumin Urine Color Yellow Urine Clarity Clear Urine pH 5.5 Ur Specific [place] >= 1.030 H Urine Protein 100 H Urine Ketones Trace H Urine Blood Trace-intact H Urine Nitrite Negative Urine Bilirubin Negative Urine Urobilinogen 1.0 H Ur Leukocyte Esterase Negative Urine RBC 3-5 H Urine WBC 0-2 Ur Epithelial Cells Few Urine Crystals Negative Urine Bacteria Negative Urine Casts Negative Urine Mucus Negative Urine Other Negative Ur Culture Indicated? No Urine Glucose Negative COVID-19 Source SARS-CoV-2 (PCR) Add-On Test Request Time Spent with Patient Time Spent with Patient: <25 minutes Time was spent: preparing to see the patient(eg.review tests), obtaining and/or reviewing separately otained hiistory, ordering medications,tests, procedures, referring, communicating with other health auto care center manager, indepentently interpreting results, counseling the patient and care coordination
--- NOTE | 2022-12-22 15:10 | NUR.NOTE ---
Nursing Note: notified charge nurse leatha of pt continued sedation. pt is slow to respond and needs tactile stimulation to awaken. vs remain stable.
[2022-12-22] MEDS: ceFAZolin 1 GM/50 ML BAG IVPB ×2 (16:02→23:29)
--- NOTE | 2022-12-22 16:02 | W.ANESPOSTOP ---
Postoperative Evaluation Date, Time and Location Date Performed: 12/22/22 Time Performed: 16:02 Patient Location: Med/Surg Vital Signs Most Recent Imported Vital Signs: Most Recent Vital Signs Temp Pulse Resp BP Pulse Ox 36.4 C L 130 H 17 103/65 92 12/22/22 15:17 12/22/22 15:17 12/22/22 15:17 12/22/22 15:17 12/22/22 15:17 Pain Score Most Recent Pain Score: Most Recent Pain Score Pain Level [Bilateral Leg] 4 12/22/22 08:44 Pain Level 0 12/22/22 13:36 Assessment Mental Status: Arousable with meaningful communication Airway and Respiratory Function: Abnormal Respiratory exam (See explanation) (Patient now on 4lpm, bedside care discussion with Dr. Shepard to clarify current needs. Discussion in presence of daughter. I recommended continuous SPO2 monitoring and working with respiratory therapy. ) Cardiovascular Function: Hemodynamically Stable (back to afib in the 110s-120s) and Receiving care as an inpatient Hydration Status: Adequately Hydrated Nausea & Vomiting: No Nausea or Vomiting Pain: Pt. Denies Any Pain Peripheral Nerve Block: Patient did not receive a nerve block Teaching Patient Teaching: Advised to seek followup for the following concerns (See explanation) Concerns: Pulmonary Optimization (Discussed need for optimization with patient and in presence of daughter and Dr. Shepard, GAMMA FACILITIES OPERATOR. )
[2022-12-22] MEDS: Lactated Ringers 500 ML 1000 ML IV (17:40)
[2022-12-22] MEDS: Lactated Ringers 1,000 ML 80 ML IV (17:41)
[2022-12-22] MEDS: Dofetilide 250 MCG CAP PO (21:18)
--- NOTE | 2022-12-22 22:32 | TELEP.MEDR_ITS ---
Date of service: 12/22/22 Time of Service: 22:32 Telepharmacy Home Med Rec Allergies Allergies: hydrocodone Adverse Reaction (Severe, Verified 12/21/22 20:54) excessive sedation metoprolol Adverse Reaction (Intermediate, Verified 12/21/22 20:54) fatigue rivaroxaban [From Xarelto] Adverse Reaction (Verified 12/21/22 20:54) fatigue Interview Person Interviewed: * patient Quality Quality of Interview/Accuracy of Medication List: Fair Sources Sources used to compile medication list: [employer] Medication List, Patient List and [employer] Changes made to Home Medication List: ADDITIONS: * FLovent 220 1 puff PO BID DELETIONS: * Fluocinonide * Colchicine * Keflex CHANGES: * Fish oil 1000mg PO daily (changed from 100mg daily) Additional Notes Additional Notes: * Eliquis is currently on hold for surgery Recommended Changes Attestation: The home medication list is now updated to the best of my knowledge and is ready to be reconciled by the provider. Please contact the TelePharmacy Medication Reconciliation Pharmacist at for any questions.
[2022-12-23] VITALS (20 sets, daily range): BP systolic 88–129; BP diastolic 60–85; PULSE 84–134; RESP 16–20; TEMP 36–37.2; O2SAT 83–98
[2022-12-23] MEDS: Lactated Ringers 1,000 ML 80 ML IV (00:49)
[2022-12-23] MEDS: MORPHine 2 MG/ML SYR IVP ×2 (00:54→15:14)
[2022-12-23] MEDS: Normal Saline Flush 10 ML SYR IVP ×3 (01:23→16:35)
[2022-12-23] MEDS: Metoprolol 5 MG/5 ML VIAL IVP ×4 (01:24→16:35)
[2022-12-23 06:33] LABS: Abs Immature Grans 0.02 10^3/uL (0.0-0.06); Absolute Lymphocyte Count 0.59 10^3/uL (1.2-3.4); Absolute Monocyte Count 0.88 10^3/uL (0.1-0.8); Absolute Neutrophil Count 7.61 10^3/uL (1.2-6.7); HCT 34.2 % (36.0-46.0); HGB 10.6 g/dL (11.2-15.7); Immature Grans % 0.2; Lymphocytes % 6.5; MCH 30.6 pg (27.0-33.0); MCV 99 fL (80-95); MPV 11.1 fL (8.0-11.0); Monocytes % 9.7; Neutrophils % 83.6; Platelet Count 181 10^3/uL (130-400); RBC 3.46 10^6/uL (3.93-5.22); RDW 13.7 % (11.7-14.6); RDW-SD 48.6 fL
[2022-12-23 06:47] LABS: Anion Gap 4.9 mmol/L (3-11); BUN 32 mg/dL (7-18); C-Reactive Protein 7.66 mg/dL (0.0-0.3); CO2 32.1 mmol/L (21.0-32.0); CREATININE 0.9 mg/dL (0.55-1.02); Calcium 8.3 mg/dL (8.5-10.1); Chloride 104 mmol/L (98-107); Estimated GFR 69.64 (mL/min/1.73m2); Glucose 215 mg/dL (74-106); Magnesium 1.8 mg/dL (1.8-2.4); Sodium 141 mmol/L (136-145)
[2022-12-23] MEDS: Tiotropium/Olodaterol 10 PUFF INHALER 2 PUFF IH (08:45)
[2022-12-23] MEDS: guaiFENesin 600 MG TABCR 1200 MG PO ×2 (08:58→20:20)
[2022-12-23] MEDS: Magnesium Lactate-SR 84 MG TABCR 168 MG PO ×2 (08:58→20:22)
[2022-12-23] MEDS: Gabapentin 100 MG CAP 200 MG PO ×3 (08:59→20:19)
[2022-12-23] MEDS: Potassium Chloride 10 MEQ CAPCR PO ×2 (08:59→20:21)
[2022-12-23] MEDS: Glucosamine/Chondroitin CAP 1 CAP PO ×3 (08:59→20:22)
[2022-12-23] MEDS: Multivitamin TAB 1 TAB PO (08:59)
[2022-12-23] MEDS: ceFAZolin 1 GM/50 ML BAG IVPB (09:00)
[2022-12-23] MEDS: Pantoprazole 40 MG TABCR PO (09:00)
[2022-12-23] MEDS: Dofetilide 250 MCG CAP PO ×2 (09:01→21:03)
--- NOTE | 2022-12-23 09:10 | PT.INIE ---
PT Notes Visit Reasons: Right Hip Fracture Inpatient Physical Therapy Evaluation Date: [12/23/2022] Referring Doctor: [Gregorio Samuels MD] PT Orders: PT CONSULT: WBAT RLE with RW Precautions: []standard, WBAT RLE with walker, fall Patient Profile/Admitting Diagnosis: []This is a 67 yo female with a PMH of Afib, COPD, tobacco abuse disorder, ADHD, MS, osteopenia.? She fell the day prior to presentation after she turned her body as she was trying to get her dog out of her way and developed dizziness.? This caused her to fall to a wooden floor.? No LOC, denies hitting head. No neck or back pain.? No preceding rapid heart rate/palpitations or CP noted.? A friend was present and helped her get up.? Since the fall she has had pain and difficulty ambulating.? S/p Right femoral neck fracture, screw fixation 12/22/2022 PMHX: []All Active Problems? Closed fracture of right hip (Acute) Fracture of femoral neck, right (Acute 12/20/22) Hypoxia (Acute) Adult ADHD (Chronic 07/15/14) Atrial fibrillation and flutter (Chronic 05/26/15) No atrial fib since started on Tikosyn Chronic obstructive lung disease (Chronic) Conductive hearing loss, 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) Depressed bipolar I disorder (Chronic) GERD (gastroesophageal reflux disease) (Chronic 05/26/15) Intention tremor (Chronic) [facility] current use of antiarrhythmic medical therapy (Chronic 12/23/15) Osteopenia (Chronic) Seborrheic dermatitis of scalp (Chronic 03/13/16) Smoker (Chronic) 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 Patient has 3 steps to get into the home and once in the home all the living is not 1 floor she does not need to use stairs within the home. She has a step in shower in the tub and states that she has some sort of shower chair which she uses occasionally because has decreased tolerance to standing at baseline and fatigues quickly at baseline. Patient states that she has not been using any AD at home. Current Functional Limitations: WBAT right LE with RW, needs assist for bed mobility, sit to stand and ambulation with RW. Equipment Owned/DME: None Subjective: Objective: General Observation: Patient is on 2 L nasal cannula O2, patient has intention tremors Mental Status: Alert and oriented x3 Pain: Patient reports pain has been2?5/10 unless she twists her leg and she says that it will be 7/10 Vital Signs: O2 and see 2 L ranges between 91?97 during treatment ROM: Right Upper Extremity: WFL Left Upper Extremity: WFL Right Lower Extremity: Decreased hip IR 10 degrees, ER 10 degrees, flexion 95 Left Lower Extremity: WFL Strength: Right Upper Extremity: WFL Left Upper Extremity: WFL Right Lower Extremity: Hip flexion 2/5, AB duction 2/5, ad duction 2/5, extension 2/5, knee quad 2/5 ham 2/5, ankle DF 3/5 PF NT Left Lower Extremity: WFL Sensation: WNL Bed Mobility/Transfers: Patient needs mod assist to go supine to sit and maneuver in the bed with assist to LE needs increased time for bed mobility. Sit to stand bed to RW mod assist with major VC for hand placement and instruction to push through left LE Stand to sit RW to chair, min assist with major VC for hand placement Gait: Ambulates with RW with min assist x8 feet requires major VC for sequencing and maneuvering to sit to chair. Balance: Static Sitting: WNL Dynamic Sitting: Unsteady needs arms Static Standing: Needs RW unsteady, unable to stand on just left LE Dynamic Standing: Unable to let go of RW Special Tests: Mobility Limitations Standardized Measure [facility] AM-PAC 6 clicks Basic Mobility Inpatient Short Form: Raw Score: 9 standardized Score: 30.55 CMS Score: 81.38 Informed Consent/Education: Patient instructed in purpose of PT consult and plan of care. Assessment: Patient is a 67year old female referred to physical therapy services with the diagnosis of status post right screw fixation for femoral neck fracture 12/22/2022. Patient presents with clinical signs and symptoms consistent with status post femoral neck fracture fixation 12/22/2022, as demonstrated by the following impairment level findings: Decreased right LE ROM, decreased right LE strength, decreased mobility in bed, decreased transfers, decreased ambulatory status, pain. Impairments are contributing to the following functional limitations: AMPAC score. Patient is assessed as a Moderate 64529 complexity based on the following: History: As outlined above patient essentially lives alone has underlying conditions with decreased O2 sats Examination: As outlined above Presentation: Changing Decision Making: Moderate Goals: Goals X1 week 1. Supine-Sit independent 2. Sit-Supine independent 3. Sit-Stand to RW independent 4. Stand-Sit to chair independent 5. Bed-Chair independent 6. Chair-Bed independent 7. Gait with RW WBAT right independent 8. Stairs with RW min assist 9. Independent with home exercise program 10. Balance good dynamic sitting, good static standing, fair dynamic standing Plan of Care/Treatment Plan: 1-2x/day, 7 days/week x 1 week. Plan of care has been reviewed with the BODY PRESSER providing the service under Physical Therapy direction. Initiate Physical Therapy intervention for strengthening, bed mobility, transfers, gait, stairs, balance training, use of assistive device. DISCHARGE RECOMMENDATIONS: [] Home with no services [] [] Home with services [specify] [] Home with outpatient PT [] [x] SNF for continued rehabilitation [] [] Park Maintenance Technician Care [] [] SNF versus LTC based on ability to participate and progress [] TREATMENT CODE/TIME: []12643 25' , 41973 22'
[2022-12-23] MEDS: Metoprolol 25 MG TAB PO (11:41)
[2022-12-23] MEDS: Nicotine 14 MG/24 HR PATCH TD (12:24)
[2022-12-23] MEDS: Apixaban 5 MG TAB PO ×2 (12:55→20:20)
--- NOTE | 2022-12-23 13:43 | W.PM.PROGNOT ---
Date of Service Date of service: 12/23/22 Time of Service: 13:43 Assessment and Plan Assessment and plan (1) Fracture of femoral neck, right: Status: Acute Assessment and plan: 67 year old female POD#1 status post Right hip percutaneous cannulated screw fixation Chart reviewed. Stable with tachycardia and oxygen requirement. Jay DC'd- voiding. HD stable- resumed ELQ. Continue to monitor. Continue multimodal pain control, PT, WBAT with walker. Eliquis may serve as chemical DVT prophylaxis. Mechanical DVT prophylaxis with SCDs Follow-up with Dr. Samuels outpatient [facility] in 2 to 3 weeks: Keep Mepilex in place for 5-7 days, may then remove and cover incisions with Band-Aids Appreciate medical management Discharge when medically appropriate Objective Last Vital Signs Temp 99.0 F 12/23/22 11:17 Pulse 127 H 12/23/22 11:18 Resp 18 12/23/22 11:17 BP 117/73 12/23/22 11:18 Pulse Ox 96 12/23/22 11:17 Laboratory Results - last 24 hr 12/23/22 12/23/22 05:25 05:25 WBC 9.10 RBC 3.46 L Hgb 10.6 L Hct 34.2 L MCV 99 H MCH 30.6 MCHC 31.0 L RDW 13.7 Plt Count 181 MPV 11.1 H Immature Gran % 0.2 Neutrophils % 83.6 Lymphocytes % 6.5 Monocytes % 9.7 Eosinophils % 0.0 Basophils % 0.0 Nucleated RBC % 0.0 Absolute Neutrophils 7.61 H Absolute Lymphocytes 0.59 L Absolute Monocytes 0.88 H Absolute Eosinophils 0.00 Absolute Basophils 0.00 Sodium 141 Potassium 5.0 Chloride 104 Carbon Dioxide 32.1 H Anion Gap 4.9 BUN 32 H Creatinine 0.9 Est GFR (CKD-EPI 2020) 69.64 Glucose 215 H Calcium 8.3 L Magnesium 1.8 C-Reactive Protein 7.66 H Time Spent with Patient Time Spent with Patient: <25 minutes (not [id number]) Time was spent: referring, communicating with other health customer care voice consultant and indepentently interpreting results
[2022-12-23] MEDS: Lactated Ringers 1,000 ML 30 ML IV (14:30)
--- NOTE | 2022-12-23 14:30 | PGE_ITS ---
Date of Service Date of service: 12/23/22 Time of Service: 14:30 Assessment and Plan Assessment and plan (1) Fracture of femoral neck, right: Status: Acute Assessment and plan: Mechanical fall after turn body quickly and feeling dizzy; ground level. Post op day 1 Resume Eliquis. PRN acetaminophen and morphine. Full diet resumed DSD dressing, no bleed through (2) Low oxygen saturation: Status: Acute Assessment and plan: Weaning off of oxygen, doing well. SPO2> 92% on 2 lpm, weaning to RA IS Acapella Continuous pulse ox Duoneb prn (3) Chronic obstructive lung disease: Status: Chronic Assessment and plan: Cont home pulmonary medications. No current exacerbation. Current smoker - offer nicotine replacement incentive spirometry. Acapella (4) Depressed bipolar I disorder: Status: Chronic Assessment and plan: Not on psychiatric medications. Does take temazepam prn at night for insomnia. (5) Intention tremor: Status: Chronic Assessment and plan: Cont prn propanolol. She does have a significant tremor when she does not take it and can't hold a fork with food on it for example (6) Osteopenia: Status: Chronic Assessment and plan: On a calcium and Vit D supplementation. (7) Atrial fibrillation status post cardioversion: Assessment and plan: Cont dofetilide. ECG shows afib - she did have some rapid rates up to 150s overnight and was given Lopressor IV with increase of Metoprolol oral to 25 mg daily She was in /out of afib - never unstable, never above 150. Her blood pressure did get a little soft - 88s - IV bolus of 500 ml NS given Metoprolol given, she is not allergic to it, she states it causes fatigue if taken on a regular bases. Discussed with Dr Boswell (8) DVT prophylaxis: Status: Acute Assessment and plan: Continue Apixaban (9) Discharge planning issues: Status: Acute Assessment and plan: SNF v Home when medically stable, already ok per Ortho Subjective Subjective Patient reports: pain is less, tolerating a regular diet, voiding w/o difficulty (Jay catheter removed), bowel movement and afebrile; denies diarrhea, nausea, vomiting or shortness of breath Interval history since last seen: Had some episoded of increased HR related to AFib during the night, denied light headedness and no chest pain, states her hip is feeling better. She is awake alert and vital signs are stable Exam Narrative Exam Narrative: General: Frail appearing female, awake in the chair post op day 1 Skin: Warm and Dry w/o rashes/lesions Head:Normocephalic, no tenderness/contusions. Eyes: Pupils PERRLA, No periorbial ecchymosis, sclera clear. Neck: No midline tenderness, FROM Chest: No surface trauma. Nontender without crepitus or deformity. Lungs clear to ausculatation bilaterally. Nonlabored breathing. Heart: RRR, no rubs, murmurs Abdomen: Nondistended. Nontender to palpation no guarding, rebound. Extremities: Decreased sensation of right lower extremity, warm to touch with an abrasion noted to the anterior barba. Tenderness in groin. DSD over incision, no bleeding Neuro: Decreased Right hip flexion d/t pain. No focal motor deficits. No facial asymmetry. Objective Last Vital Signs Temp 37.2 C 12/23/22 11:17 Pulse 127 H 12/23/22 11:18 Resp 18 12/23/22 11:17 BP 117/73 12/23/22 11:18 Pulse Ox 96 12/23/22 11:17 Laboratory Results - last 24 hr 12/23/22 12/23/22 05:25 05:25 WBC 9.10 RBC 3.46 L Hgb 10.6 L Hct 34.2 L MCV 99 H MCH 30.6 MCHC 31.0 L RDW 13.7 Plt Count 181 MPV 11.1 H Immature Gran % 0.2 Neutrophils % 83.6 Lymphocytes % 6.5 Monocytes % 9.7 Eosinophils % 0.0 Basophils % 0.0 Nucleated RBC % 0.0 Absolute Neutrophils 7.61 H Absolute Lymphocytes 0.59 L Absolute Monocytes 0.88 H Absolute Eosinophils 0.00 Absolute Basophils 0.00 Sodium 141 Potassium 5.0 Chloride 104 Carbon Dioxide 32.1 H Anion Gap 4.9 BUN 32 H Creatinine 0.9 Est GFR (CKD-EPI 2020) 69.64 Glucose 215 H Calcium 8.3 L Magnesium 1.8 C-Reactive Protein 7.66 H Time Spent with Patient Time Spent with Patient: 25-34 minutes Time was spent: preparing to see the patient(eg.review tests), ordering medications,tests, procedures, referring, communicating with other health career development specialist, indepentently interpreting results, counseling the patient and care coordination
[2022-12-23] MEDS: Acetaminophen 325 MG TAB 650 MG PO (14:49)
[2022-12-23] MEDS: Propranolol 20 MG TAB PO (16:35)
[2022-12-23] MEDS: Mometasone 220 MCG 14 DOSE INHALER 2 PUFF IH (19:35)
[2022-12-23] MEDS: Normal Saline 250 ML 500 ML IV (20:15)
[2022-12-23] MEDS: Normal Saline 500 ML 999 ML IV (20:15)
[2022-12-24] VITALS (13 sets, daily range): BP systolic 101–125; BP diastolic 58–79; PULSE 78–148; RESP 16–21; TEMP 36.7–37.4; O2SAT 94–100
--- NOTE | 2022-12-24 | DI.RAD_ITS ---
Exam(s) XR PORTABLE CHEST AP EXAM: XR PORTABLE CHEST AP CLINICAL HISTORY: post op, difficult extubation, now with rhonchi TECHNIQUE: 2D digital imaging was performed of the chest. One image was obtained. An AP view was ob tained. COMPARISON: CR,XR XR CHEST 2V PA LATERAL from 12/21/2022 FINDINGS: MEDIASTINUM: Normal. HEART: Normal. PULMONARY VASCULATURE: Normal. LUNGS: There is a left basilar infiltrate with obscuration of the left hemidiaphragm and air bronchog laurel seen. The right lung is clear. PLEURAL SPACE: No pleural effusion or pneumothorax. BONE:Within normal limits for the patient's age. OTHER FINDINGS:Normal. IMPRESSION: Left basilar opacity which may represent atelectasis or pneumonia. DATA REPOSITORY: RADIATION DOSE DELIVERED:
[2022-12-24] MEDS: Temazepam 15 MG CAP PO (02:45)
[2022-12-24 06:54] LABS: Abs Immature Grans 0.04 10^3/uL (0.0-0.06); Absolute Basophil Count 0.01 10^3/uL (0.0-0.2); Absolute Eosinophil Count 0.03 10^3/uL (0.0-0.7); Absolute Lymphocyte Count 1.35 10^3/uL (1.2-3.4); Absolute Monocyte Count 1.46 10^3/uL (0.1-0.8); Absolute Neutrophil Count 7.87 10^3/uL (1.2-6.7); Basophils % 0.1; Eosinophils % 0.3; HCT 37.3 % (36.0-46.0); HGB 11.4 g/dL (11.2-15.7); Immature Grans % 0.4; Lymphocytes % 12.5; MCH 30.2 pg (27.0-33.0); MCHC 30.6 % (32.0-36.0); MCV 99 fL (80-95); MPV 10.7 fL (8.0-11.0); Monocytes % 13.6; Neutrophils % 73.1; Nucleated RBC 0.3 % (0.0-0.3); Platelet Count 215 10^3/uL (130-400); RBC 3.77 10^6/uL (3.93-5.22); RDW 13.8 % (11.7-14.6); RDW-SD 48.5 fL; WBC 10.76 10^3/uL (4.4-10.8)
[2022-12-24 07:20] LABS: Anion Gap 3.1 mmol/L (3-11); BUN 39 mg/dL (7-18); CO2 29.9 mmol/L (21.0-32.0); CREATININE 1.1 mg/dL (0.55-1.02); Calcium 8.6 mg/dL (8.5-10.1); Chloride 103 mmol/L (98-107); Estimated GFR 54.73 (mL/min/1.73m2); Glucose 128 mg/dL (74-106); Magnesium 2.1 mg/dL (1.8-2.4); Potassium 5.7 mmol/L (3.5-5.1); Sodium 136 mmol/L (136-145)
--- NOTE | 2022-12-24 08:12 | OTIE_ITS ---
Occupational Therapy Notes Inpatient Occupational Therapy Evaluation Date: 12/24/22 Referring Doctor:Gregorio Samuels MD OT Orders: Urgent: s/p ortho surgery- RLE WBAT with walker Precautions: Fall, standard, full PATIENT PROFILE/ADMITTING DIAGNOSIS: Pt is a 67 year old female who was admitted through the ED and referred for Occupational Therapy services s/p Right hip percutaneous cannulated scew internal fixation performed by Dr. Samuels. Past Medical History: All Active Problems? 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 Acute idiopathic gout involving toe of left foot (02/16/16) Asthma Atrial fibrillation status post cardioversion (12/23/15) Atrophic vaginitis (05/17/16) Chronic bronchitis COPD with chronic bronchitis Dysfunctional uterine bleeding Dyspnea Family hx-breast malignancy mother Ganglion cyst of finger of left hand Multiple sclerosis (06/25/09) Paroxysmal atrial fibrillation Pneumonia Polyp of colon Vaginal wall prolapse (04/16/12) Surgical History? Augmentation mammoplasty IMPLANTBilateral salpingectomy with oophorectomy History of bilateral ligation of fallopian tubes Social History/Home Situation: Pt states that she lives in a privte home alone. She notes that she has a dog who is 14 years old and she states that she has friends that sometimes help. She notes that she does not drive and utilizes [employer]. She has a tub shower and states that she has a small seat in the shower which she uses. She does not have any (A) that comes into her home. She reports, I'm not a very clean person right now because I am so limited in what I am able to do. SUBJECTIVE: Pt is tired, she notes that she is sore and didn't sleep well. OBJECTIVE: General Observation: Nasal cannula O2, IV in (R) UE, weakness, essential tremor in (B) UE which pt states is baseline and once she gets her medication this will improve. Mental Status: A&Ox3 Pain: c/o pain in LE ROM: RUE AROM WFL L UE AROM WFL STRENGTH: RUE 3+/5 LUE 3/5 FUNCTIONAL MOBILITY/ADLS: Transfers with FWW BATHING NT pt would like to hold at this time. DRESSING Dressing LE Pt reports that she is very concerned about her LE dressing. OT educated and trained pt in use of sock aide for donning (B) socks which pt was receptive too. GROOMING NT TOILETING on bed warner per pt report and max (A) EATING Sitting in bed pt is able to bring her hand to her mouth and chew but notes that this is difficult at times for her in regards to chewing. OT recommends that pt have an PLANT TECHNICIAN/CONTROL ROOM OPERATOR consult to assess this at this time. She is not using he silverware appropriately and notes that her eating is very slow. BALANCE: Static sitting Normal Dynamic Sitting Normal Static Standing Good Dynamic Standing Good SPECIAL TESTS: Daily Activity Limitations Standardized Measure [facility] AM -PAC ?6 clicks? Daily Activity Inpatient Short Form: Raw score: 11 Standardized score: 29.04 CMS score: 70.42% INFORMED CONSENT/EDUCATION: Pt instructed in purpose of OT Consult and plan of care. ASSESSMENT: Patient is a 67-year-old female referred to occupational therapy services with diagnosis of Afib, COPD, tobacco abuse disorder, ADHD, MS, osteopenia, she had a fall which resulted in a fx to the femoral neck of (R) LE. Patient presents with clinical signs and symptoms consistent with dx, as d emonstrated by the following impairment level findings/functional limitations: Impairments in ADL/IADL and leisure activities, decreased functional activity tolerance, pain in LE, decreased UE strength, decreased functional mobility required for ADL performance, high pain with mobility. AMPAC score 11 Patient is assessed as a Moderate 25025 complexity based on the following: History: see above Examination: see functional limitations as noted above Presentation: evolving Decision Making: AMPAC score 11 GOALS Goals x1 week 1. Grooming seated (I) with oral hygiene 2. Dressing seated mod (I) 3. Bathing seated (I) 4. Toileting on commode (I) 5. Eating (I) with appropriate use of silverware PLAN OF CARE/TREATMENT PLAN: 1x/day, 5 days/ week x 1week Initiate Occupational Therapy Services for bathing, dressing, grooming, toileting, eating, transfer training. DISCHARGE RECOMMENDATIONS OT recommends SNF based on pts current level of function when medically cleared per MD. TREATMENT TIME/MINUTES/CODES 38733, 26033, 20 minutes opal Mcpherson OTR/L [facility]
[2022-12-24] MEDS: Potassium Chloride 10 MEQ CAPCR PO (08:24)
[2022-12-24] MEDS: Fexofenadine 180 MG TAB PO (08:24)
[2022-12-24] MEDS: Calcium 600mg/Vit D 200U TAB 1 TAB PO (08:24)
[2022-12-24] MEDS: Gabapentin 100 MG CAP 200 MG PO ×3 (08:24→20:20)
[2022-12-24] MEDS: Multivitamin TAB 1 TAB PO (08:24)
[2022-12-24] MEDS: Omega-3 Fatty Acids 1000 MG CAP PO (08:25)
[2022-12-24] MEDS: Pantoprazole 40 MG TABCR PO (08:25)
[2022-12-24] MEDS: Magnesium Lactate-SR 84 MG TABCR 168 MG PO ×2 (08:25→20:20)
[2022-12-24] MEDS: Glucosamine/Chondroitin CAP 1 CAP PO ×3 (08:25→20:20)
[2022-12-24] MEDS: guaiFENesin 600 MG TABCR 1200 MG PO ×2 (08:26→20:20)
[2022-12-24] MEDS: Apixaban 5 MG TAB PO ×2 (08:26→20:19)
[2022-12-24] MEDS: Mometasone 220 MCG 14 DOSE INHALER 2 PUFF IH ×2 (08:39→19:22)
[2022-12-24] MEDS: Tiotropium/Olodaterol 10 PUFF INHALER 2 PUFF IH (08:40)
[2022-12-24] MEDS: Dofetilide 250 MCG CAP PO ×2 (11:12→21:37)
[2022-12-24] MEDS: Sodium Zirconium Cyclosilicate 10 GM PKT PO (11:12)
--- NOTE | 2022-12-24 13:04 | PGE_ITS ---
Date of Service Date of service: 12/24/22 Time of Service: 13:04 Assessment and Plan Assessment and plan (1) Fracture of femoral neck, right: Status: Acute Assessment and plan: Mechanical fall after turn body quickly and feeling dizzy; ground level. Post op day 2 Continue Eliquis. PRN acetaminophen and morphine. Full diet resumed DSD dressing, no bleed through (2) Pneumonia: Status: Acute Assessment and plan: Left basilar opacity which may represent atelectasis or pneumonia.? Cefepime and doxy started, step, legionella, BC, sputum cx ordered as well as mycoplama and MRSA (3) Congestive heart disease: Status: Chronic Assessment and plan: US by Dr Boswell Furosemide CXR done - Left basilar opacity which may represent atelectasis or pne umonia.?Also started abx (4) Low oxygen saturation: Status: Acute Assessment and plan: Weaning off of oxygen, doing well. SPO2> 92% on 2 lpm, weaning to RA IS Acapella Continuous pulse ox Duoneb prn New dx CHF, furosemide given (5) Chronic obstructive lung disease: Status: Chronic Assessment and plan: Cont home pulmonary medications. No current exacerbation. Current smoker - offer nicotine replacement incentive spirometry. Acapella CXR - pneumonia - cefepime and doxy started US done by Dr Boswell (6) Depressed bipolar I disorder: Status: Chronic Assessment and plan: Not on psychiatric medications. Does take temazepam prn at night for insomnia. (7) Intention tremor: Status: Chronic Assessment and plan: Cont prn propanolol. She does have a significant tremor when she does not take it and can't hold a fork with food on it for example (8) Osteopenia: Status: Chronic Assessment and plan: On a calcium and Vit D supplementation. (9) Atrial fibrillation status post cardioversion: Assessment and plan: Cont dofetilide. Metoprolol 12.5 mg QID added Lopressor 5 mg IV prn sustained HR > [address] Boswell (10) DVT prophylaxis: Status: Acute Assessment and plan: Continue Apixaban (11) Discharge planning issues: Status: Acute Assessment and plan: SNF - would benefit from short rehab stay v Home when medically stable, already ok per Ortho Discussed with Dr Boswell Subjective Subjective Patient reports: no new complaints, tolerating a regular diet, bowel movement and afebrile; denies diarrhea, nausea or vomiting Interval history since last seen: Sleepy, daughter is at bedside; she states the patient mostly sleeps now, she does not go outside and she does not walk her dog. She states this is her usual state. Exam Narrative Exam Narrative: General: Frail appearing female, awake in the chair post op day 1 Skin: Warm and Dry w/o rashes/lesions Head:Normocephalic, no tenderness/contusions. Eyes: Pupils PERRLA, No periorbial ecchymosis, sclera clear. Neck: No midline tenderness, FROM Chest: No surface trauma. Nontender without crepitus or deformity. Bibasilar crackles to ausculatation bilaterally. Nonlabored breathing. Heart: RRR, no rubs, murmurs Abdomen: Nondistended. Nontender to palpation no guarding, rebound. Extremities: Decreased sensation of right lower extremity, warm to touch with an abrasion noted to the anterior barba. Tenderness in groin. DSD over incision, no bleeding Neuro: Decreased Right hip flexion d/t pain. No focal motor deficits. No facial asymmetry. Objective Last Vital Signs Temp 36.7 C 12/24/22 11:19 Pulse 78 12/24/22 11:19 Resp 18 12/24/22 11:19 BP 125/69 12/24/22 11:19 Pulse Ox 100 12/24/22 11:19 Laboratory Results - last 24 hr 12/24/22 12/24/22 06:12 06:12 WBC 10.76 RBC 3.77 L Hgb 11.4 Hct 37.3 MCV 99 H MCH 30.2 MCHC 30.6 L RDW 13.8 Plt Count 215 MPV 10.7 Immature Gran % 0.4 Neutrophils % 73.1 Lymphocytes % 12.5 Monocytes % 13.6 Eosinophils % 0.3 Basophils % 0.1 Nucleated RBC % 0.3 Absolute Neutrophils 7.87 H Absolute Lymphocytes 1.35 Absolute Monocytes 1.46 H Absolute Eosinophils 0.03 Absolute Basophils 0.01 Sodium 136 Potassium 5.7 H Chloride 103 Carbon Dioxide 29.9 Anion Gap 3.1 BUN 39 H Creatinine 1.1 H Est GFR (CKD-EPI 2020) 54.73 Glucose 128 H Calcium 8.6 Magnesium 2.1 Time Spent with Patient Time Spent with Patient: 25-34 minutes Time was spent: preparing to see the patient(eg.review tests), ordering medications,tests, procedures, referring, communicating with other health daycare director, indepentently interpreting results, counseling the patient and care coordination
--- NOTE | 2022-12-24 13:19 | PDOC.CMPRO ---
- If Service Date Differs Date of service: 12/24/22 Time of Service: 13:19 Care Management Progress Note S/O: Renu was reclining in her chair. She appears comfortable and sleeping. She responds to light touch and this ticket writer voice, but doesn't engage in conversation. CM met with pts daughter Shoshana when she visited today. Per Shoshana, sleeping in a chair all day is her moms baseline and noted that over the last few years Renu's only left the house to go to doctor appointments. CM updated Shoshana that PT's recommendation is SNF for STR prior to discharging back home and let her know referrals are pending at [facility], [facility], [facility] and [facility]. Shoshana is curious about the longshore equipment operator placement process. CM provided pts daughter with a LTM application and let her know about [facility] and [facility]. CM will check with pt in the morning and send referrals if pt is agreeable. CM will follow. A: 67 year old female admitted to [facility] on 12/21/22 s/p Fracture of femoral neck, right P: Anticipate, Renu will discharge to SNF for STR prior to discharging home. SNF referral's are pending at [facility], [facility], [facility] and [facility]. Transportation will be dependent on dispo. Renu will follow up with community providers and discharge plan of care as prescribed. CM will continue to support discharge planning conciderations.
[2022-12-24 16:04] LABS: Hemoglobin A1C 7.1 % (<5.7)
[2022-12-24 16:34] LABS: BE (Venous) 5 mmol/L (-2-3); HCO3 (Venous) 31 mmol/L (23-28); O2 Sat (Venous) 84 %; TCO2 (Venous) 29 mmol/L (24-29); pCO2 (Venous) 58 mmHg (41-51); pH (Venous) 7.33 (7.31-7.41); pO2 (Venous) 49 mmHg
[2022-12-24] MEDS: Metoprolol 5 MG/5 ML VIAL IVP (16:53)
--- NOTE | 2022-12-24 17:00 | RT.EKG_ITS ---
APPROVED REPORT Exam: Resting ECG Reason for Exam: AFib Patient Location: I HR:113 bpm ECG Measurements Heart Rate 113 AXIS ND [id number] P [id number] QRSd 109 QRS 100 QT 332 T 55 QTc 456 Conclusion Atrial fibrillation...? atrial activity Paired ventricular premature complexes...sequence of 2 V complexes RBBB
--- NOTE | 2022-12-24 17:02 | W.POCUS ---
Pocus Exam Limited Thoracic Lung Exam DATE OF EXAM: 12/24/22 TIME OF EXAM: 15:59 PROVIDER THAT PERFORMED THE STUDY: Darius Boswell IS THIS A REPEAT EXAM DURING THIS ENCOUNTER: No REASON FOR EXAM: Hypoxia, Pneumonia and Shortness ofBreath VISUALIZED STRUCTURES: right anterior, left anterior, right lateral, left lateral, right posterior and left posterior PERTINENT FINDINGS/IMPRESSION: B-lines/left side thoracis location: lateral and posterior, B-lines/right side thoracis location: lateral and posterior, Pneumonia (bilateral lower lobe consolidation w/ lung hepatization and air bronchograms), Left pleural effusion (moderate to large simple) and Right pleural effusion (moderate simple) Exam complete
[2022-12-24 17:13] LABS: Anion Gap 7.3 mmol/L (3-11); BUN 39 mg/dL (7-18); CO2 28.7 mmol/L (21.0-32.0); Calcium 8.9 mg/dL (8.5-10.1); Chloride 102 mmol/L (98-107); Estimated GFR 61.36 (mL/min/1.73m2); Glucose 123 mg/dL (74-106); Sodium 138 mmol/L (136-145)
--- NOTE | 2022-12-24 17:19 | PTTR_ITS ---
Date of service: 12/24/22 Time of Service: 10:26 PT Notes Visit Reasons: Right Hip Fracture Inpatient Physical Therapy Treatment Note Date: 12/24/2022 Precautions: WBAT on R LE with AD. Fall. Standard. On 3 L of oxygen per minute via NC. Subjective:? Reports 8/10 pain in surgery site with weight bearing and movement. Per Nurse Briones, patient has not had any pain pill due to concerns with level of alertness and co-morbid status. Willing to transfer to bedside commode for toileting with PT and GABRIEL Pritchard this morning. Objective:? General Observation:? Patient is on 2 L nasal cannula O2, patient has intention tremors Mental Status: Alert and oriented x3 Pain: 8/10 pain in surgery site with movement and weight bearing Vital Signs:? Marked fluctuations in O2 reading from 72% through 90% on 3 L, Nurse Briones aware and managing Bed Mobility/Transfers:? EOB to bedside commode minimal assist of 2 Bedside commode to bedside chair minimal assist of 2 Gait:? 5 feet + 10 feet using FWW with minimal assist of 2 for safety. Required moderate verbal, tactile and visual cueing to handle walker, limb advancement, weight shifting, and posture. Tremors, pain, and decreased activity tolerance limited ability of patient to walk farther. Balance:? Static Sitting: Good Dynamic Sitting: Fair Static Standing: Poor Dynamic Standing: Poor Assessment:?? Patient is a 67-year old female S/P ORIF with right hip percutaneous cannulated scew of R minimally displaced femoral neck fracture on POD 2. Intetion tremors from multiple sclerosis, pain level in the surgery site, adult ADHD, and COPD exacerbation limit full and safe participation in PT sessions. Ensure that medications for said com-morbid conditions are given prior to PT sessions to maximize overall efficiency and reduce fall risk. Per patient and daughter, patient was independent with mobility performance holding onto furnitures for support and was managing her ADLs independently prior to admission. DISCHARGE RECOMMENDATIONS: [] ? Home with no services [] [] ? Home with services [specify] [] ? Home with outpatient PT [] [] ? SNF for continued rehabilitation [] [] ? [facility] [] [] ? SNF versus LTC based on ability to participate and progress [] [X] SNF vs. HH PT based on progress towards goals. Significant other is also disabled and will not be able to provide care needs of current care needs of patient. Daughter lives in the next town but worsk during the day and will not be fully available. TREATMENT CODE/TIME: Session 1 -- 65308 x 34 minutes beginning at 10:26 AM. Session 2 -- Patient not available, at lung ultrasound testing with Dr. Boswell.
[2022-12-24 17:25] LABS: NT-proBNP 11419 pg/mL (<300)
[2022-12-24] MEDS: CEFEPIME 2 GM in Normal Saline 100 ML IVPB (18:18)
[2022-12-24] MEDS: Metoprolol 12.5 MG TAB PO ×2 (18:18→23:24)
[2022-12-24] MEDS: Furosemide 40 MG/4 ML VIAL IVP ×2 (18:20→23:25)
[2022-12-24] MEDS: Normal Saline Flush 10 ML SYR IVP ×2 (20:19→23:24)
[2022-12-24] MEDS: Doxycycline Hyclate 100 MG CAP PO (20:20)
[2022-12-25] VITALS (15 sets, daily range): BP systolic 94–119; BP diastolic 58–73; PULSE 90–112; RESP 14–20; TEMP 36.7–37; O2SAT 90–98
[2022-12-25] MEDS: MORPHine 2 MG/ML SYR IVP (03:05)
[2022-12-25] MEDS: Normal Saline Flush 10 ML SYR IVP ×6 (03:05→17:08)
[2022-12-25] MEDS: Metoprolol 12.5 MG TAB PO ×4 (05:10→23:02)
[2022-12-25] MEDS: CEFEPIME 2 GM in Normal Saline 100 ML IVPB ×2 (05:11→17:08)
[2022-12-25] MEDS: Nicotine 14 MG/24 HR PATCH TD (05:27)
[2022-12-25 06:59] LABS: Abs Immature Grans 0.04 10^3/uL (0.0-0.06); Absolute Basophil Count 0.02 10^3/uL (0.0-0.2); Absolute Eosinophil Count 0.17 10^3/uL (0.0-0.7); Absolute Monocyte Count 1.12 10^3/uL (0.1-0.8); Absolute Neutrophil Count 6.29 10^3/uL (1.2-6.7); Basophils % 0.2; Eosinophils % 1.9; HCT 32.4 % (36.0-46.0); HGB 10.3 g/dL (11.2-15.7); Immature Grans % 0.5; Lymphocytes % 13.6; MCH 30.9 pg (27.0-33.0); MCHC 31.8 % (32.0-36.0); MCV 97 fL (80-95); MPV 10.5 fL (8.0-11.0); Monocytes % 12.7; Neutrophils % 71.1; Platelet Count 191 10^3/uL (130-400); RBC 3.33 10^6/uL (3.93-5.22); WBC 8.84 10^3/uL (4.4-10.8)
[2022-12-25 07:03] LABS: Anion Gap 2.8 mmol/L (3-11); BUN 34 mg/dL (7-18); CO2 38.2 mmol/L (21.0-32.0); CREATININE 0.9 mg/dL (0.55-1.02); Calcium 8.2 mg/dL (8.5-10.1); Chloride 101 mmol/L (98-107); Estimated GFR 69.64 (mL/min/1.73m2); Glucose 138 mg/dL (74-106); Magnesium 1.6 mg/dL (1.8-2.4); Potassium 3.5 mmol/L (3.5-5.1); Sodium 142 mmol/L (136-145)
[2022-12-25] MEDS: Tiotropium/Olodaterol 10 PUFF INHALER 2 PUFF IH (07:40)
[2022-12-25] MEDS: Mometasone 220 MCG 14 DOSE INHALER 2 PUFF IH ×2 (07:41→19:50)
[2022-12-25] MEDS: Calcium 600mg/Vit D 200U TAB 1 TAB PO (07:52)
[2022-12-25] MEDS: guaiFENesin 600 MG TABCR 1200 MG PO ×2 (07:52→19:59)
[2022-12-25] MEDS: Apixaban 5 MG TAB PO ×2 (07:52→19:59)
[2022-12-25] MEDS: Pantoprazole 40 MG TABCR PO (07:52)
[2022-12-25] MEDS: Glucosamine/Chondroitin CAP 1 CAP PO ×3 (07:52→19:59)
[2022-12-25] MEDS: Gabapentin 100 MG CAP 200 MG PO ×3 (07:52→19:59)
[2022-12-25] MEDS: Omega-3 Fatty Acids 1000 MG CAP PO (07:53)
[2022-12-25] MEDS: Magnesium Lactate-SR 84 MG TABCR 168 MG PO ×2 (07:53→19:59)
[2022-12-25] MEDS: Doxycycline Hyclate 100 MG CAP PO ×2 (07:53→19:59)
[2022-12-25] MEDS: Multivitamin TAB 1 TAB PO (07:53)
[2022-12-25] MEDS: Fexofenadine 180 MG TAB PO (07:53)
[2022-12-25 10:19] LABS: Lab Add On Test DONE
[2022-12-25] MEDS: Furosemide 40 MG/4 ML VIAL IVP ×2 (10:25→15:47)
[2022-12-25] MEDS: MAGNESIUM SULFATE 2 GM/50 ML BAG IVPB (10:25)
[2022-12-25] MEDS: Dofetilide 250 MCG CAP PO ×2 (10:25→21:31)
[2022-12-25 11:20] LABS: Procalcitonin < 0.1 ng/mL
--- NOTE | 2022-12-25 14:04 | PT.INTREAT ---
Date of service: 12/25/22 Time of Service: 09:30 PT Notes Visit Reasons: Right Hip Fracture Inpatient Physical Therapy Treatment Note [facility] Date: 12/25/2022 PRECAUTIONS: Fall, WBAT R, activity as tolerated SUBJECTIVE: Renu is pleasant and agreeable to participating in PT. She states that she is feeling better today, although is having more pain in R LE. OBJECTIVE: PAIN: Patient c/o R LE pain with transfers and gait training BED MOBILITY/TRANSFERS Supine-sit: SBA Sit-supine: Max A with HOB flat Sit-stand: CGA Stand-sit: CGA GAIT Assistive Device: FWW Weight bearing: WBAT R Assist: CGA - SBA in a.m.; Min A - CGA in p.m. Distance: 15' in a.m.; 6' in p.m. Deviation: Short step-height and length, step-through gait pattern, slow pacing VITALS: Per nursing, HR monitored via telemetry noted to be 150-170 bpm with activity in a.m. THEREX: Patient was instructed in a LE strengthening and stabilization program, completed in a supine position, to include: ankle pumps, quad sets, glute sets, heel slides (AA on R) and hip abduction (AA on R). ASSESSMENT: Patient tolerated session well, although with c/o increased fatigue and R LE pain with activity. She was able to tolerate a slight progression in gait distance with FWW support and CGA-SBA, demonstrating step-through gait pattern with steady and slow pacing. In p.m., patient appreas limited due to fatigue. PLAN: Continue with LE strengthening and gait and transfer training for improved mobility and activity tolerance. TREATMENT CODE/TIME: Session 1: 30 minutes; 54661, 73072 (09:30) Session 2: 25 minutes; 49767 x2 (15:00)
[2022-12-25] MEDS: Celecoxib 200 MG CAP 400 MG PO (14:28)
--- NOTE | 2022-12-25 16:13 | W.PM.PROGNOT ---
Date of Service Date of service: 12/25/22 Time of Service: 16:13 Assessment and Plan Assessment and plan (1) Fracture of femoral neck, right: Status: Acute Assessment and plan: Mechanical fall after turn body quickly and feeling dizzy; ground level. Post op day 3 Continue Eliquis. PRN acetaminophen and morphine. Full diet resumed DSD dressing, no bleed through (2) Pneumonia: Status: Acute Assessment and plan: Left basilar opacity which may represent atelectasis or pneumonia.? Cefepime and doxy started, strep, legionella, BC, sputum cx ordered as well as mycoplama and MRSA (3) Congestive heart disease: Status: Chronic Assessment and plan: US by Dr Boswell Furosemide CXR done - Left basilar opacity which may represent atelectasis or pneumonia.?Also started abx (4) Low oxygen saturation: Status: Acute Assessment and plan: Weaning off of oxygen, doing well. SPO2> 92% on 2 lpm, weaning to RA IS Acapella Continuous pulse ox Duoneb prn New dx CHF, furosemide given (5) Chronic obstructive lung disease: Status: Chronic Assessment and plan: Cont home pulmonary medications. No current exacerbation. Current smoker - offer nicotine replacement incentive spirometry. Acapella CXR - pneumonia - cefepime and doxy started US done by Dr Boswell (6) Depressed bipolar I disorder: Status: Chronic Assessment and plan: Not on psychiatric medications. Does take temazepam prn at night for insomnia. (7) Intention tremor: Status: Chronic Assessment and plan: Cont prn propanolol. She does have a significant tremor when she does not take it and can't hold a fork with food on it for example (8) Osteopenia: Status: Chronic Assessment and plan: On a calcium and Vit D supplementation. (9) Atrial fibrillation status post cardioversion: Assessment and plan: Cont dofetilide. Continue Metoprolol 12.5 mg QID Lopressor 5 mg IV prn sustained HR > 130 bpm (10) DVT prophylaxis: Status: Deleted Assessment and plan: Continue Apixaban (11) Discharge planning issues: Status: Deleted Assessment and plan: SNF - would benefit from short rehab stay v Home when medically stable, already ok per Ortho Discussed with Joannalroberto Subjective Subjective Patient reports: no new complaints Exam Const General: cooperative, frail appearing and ill appearing (older than stated age) chronically Nutritional Appearance: average body habitus [facility] Head: normal to inspection, normocephalic and atraumatic Mouth: oral mucosae normal Chest Chest: normal inspection of the chest Resp Effort & Inspection: normal respiratory effort Cardio Rate: tachycardic Rhythm: abnormal rhythm GI Inspection: normal to inspection and distended Palpation: soft Auscultation: normal bowel sounds Skin Lesions: lesion noted (dressing intact) Rashes: no rashes Extrem General: pedal edema (R>L, trace, good strong pulse) bilaterally and other (discoloration to shins, appearance of petechia ) Psych Mental Status: mental status grossly normal Speech and Movement: speech and movement normal Mood: congruent mood Affect: normal affect Objective Last Vital Signs Temp 36.8 C 12/25/22 15:24 Pulse 97 H 12/25/22 15:24 Resp 16 12/25/22 15:24 BP 108/73 12/25/22 15:24 Pulse Ox 97 12/25/22 15:24 Laboratory Results - last 24 hr 12/24/22 12/24/22 12/24/22 16:25 16:25 16:25 WBC RBC Hgb Hct MCV MCH MCHC RDW Plt Count MPV Immature Gran % Neutrophils % Lymphocytes % Monocytes % Eosinophils % Basophils % Nucleated RBC % Absolute Neutrophils Absolute Lymphocytes Absolute Monocytes Absolute Eosinophils Absolute Basophils VBG pH 7.33 VBG pCO2 58 H VBG pO2 49 VBG HCO3 31 H VBG Total CO2 29 VBG O2 Saturation 84 VBG Base Excess 5 H Sodium 138 Potassium 5.0 Chloride 102 Carbon Dioxide 28.7 Anion Gap 7.3 BUN 39 H Creatinine 1.0 Est GFR (CKD-EPI 2020) 61.36 Glucose 123 H Calcium 8.9 Magnesium NT-Pro-B Natriuret Pep 50160 H Procalcitonin M. pneumoniae Source M. pneumoniae (PCR) Add-On Test Request 12/24/22 12/25/22 12/25/22 21:30 06:08 06:08 WBC 8.84 RBC 3.33 L Hgb 10.3 L Hct 32.4 L MCV 97 H MCH 30.9 MCHC 31.8 L RDW 14.0 Plt Count 191 MPV 10.5 Immature Gran % 0.5 Neutrophils % 71.1 Lymphocytes % 13.6 Monocytes % 12.7 Eosinophils % 1.9 Basophils % 0.2 Nucleated RBC % 0.0 Absolute Neutrophils 6.29 Absolute Lymphocytes 1.20 Absolute Monocytes 1.12 H Absolute Eosinophils 0.17 Absolute Basophils 0.02 VBG pH VBG pCO2 VBG pO2 VBG HCO3 VBG Total CO2 VBG O2 Saturation VBG Base Excess Sodium 142 Potassium 3.5 D Chloride 101 Carbon Dioxide 38.2 H Anion Gap 2.8 L BUN 34 H Creatinine 0.9 Est GFR (CKD-EPI 2020) 69.64 Glucose 138 H Calcium 8.2 L Magnesium 1.6 L NT-Pro-B Natriuret Pep Procalcitonin M. pneumoniae Source Cancelled M. pneumoniae (PCR) Cancelled Add-On Test Request 12/25/22 12/25/22 06:08 06:08 WBC RBC Hgb Hct MCV MCH MCHC RDW Plt Count MPV Immature Gran % Neutrophils % Lymphocytes % Monocytes % Eosinophils % Basophils % Nucleated RBC % Absolute Neutrophils Absolute Lymphocytes Absolute Monocytes Absolute Eosinophils Absolute Basophils VBG pH VBG pCO2 VBG pO2 VBG HCO3 VBG Total CO2 VBG O2 Saturation VBG Base Excess Sodium Potassium Chloride Carbon Dioxide Anion Gap BUN Creatinine Est GFR (CKD-EPI 2020) Glucose Calcium Magnesium NT-Pro-B Natriuret Pep Procalcitonin < 0.1 M. pneumoniae Source M. pneumoniae (PCR) Add-On Test Request DONE Time Spent with Patient Time Spent with Patient: 25-34 minutes Time was spent: preparing to see the patient(eg.review tests), ordering medications,tests, procedures, referring, communicating with other health mall plant caretaker, indepentently interpreting results, counseling the patient and care coordination
--- NOTE | 2022-12-25 16:23 | PDOC.CMPRO ---
- If Service Date Differs Date of service: 12/25/22 Time of Service: 16:23 Care Management Progress Note S/O: Renu has been offered a bed at [facility] for admission tomorrow. CM provided clincial information to [facility] for prior authorization of her insurance and awaits determination. CM will follow. A: 67 year old female admitted to [facility] on 12/21/22 s/p Fracture of femoral neck, right P: Anticipate, Renu will discharge to SNF for STR prior to discharging home. SNF referral's are pending at [facility], [facility] and [facility]. Transportation will be dependent on mobility and disposition. Renu will follow up with community providers and discharge plan of care as prescribed. CM will continue to support discharge planning considerations.
[2022-12-25] MEDS: Celecoxib 200 MG CAP PO (19:59)
[2022-12-25 22:12] LABS: Legionella Ag Detection Urine Negative (Negative)
[2022-12-26] VITALS (14 sets, daily range): BP systolic 91–121; BP diastolic 59–86; PULSE 94–147; RESP 16–20; TEMP 36.4–37.4; O2SAT 92–99
[2022-12-26] MEDS: Metoprolol 12.5 MG TAB PO (04:54)
[2022-12-26] MEDS: Normal Saline Flush 10 ML SYR IVP ×4 (05:17→17:34)
[2022-12-26] MEDS: CEFEPIME 2 GM in Normal Saline 100 ML IVPB ×2 (05:18→17:34)
[2022-12-26 06:18] LABS: Abs Immature Grans 0.04 10^3/uL (0.0-0.06); Absolute Basophil Count 0.02 10^3/uL (0.0-0.2); Absolute Eosinophil Count 0.24 10^3/uL (0.0-0.7); Absolute Lymphocyte Count 1.12 10^3/uL (1.2-3.4); Absolute Monocyte Count 1.01 10^3/uL (0.1-0.8); Basophils % 0.2; Eosinophils % 2.9; HCT 31.2 % (36.0-46.0); Immature Grans % 0.5; Lymphocytes % 13.6; MCH 31.1 pg (27.0-33.0); MCHC 32.1 % (32.0-36.0); MCV 97 fL (80-95); MPV 10.7 fL (8.0-11.0); Monocytes % 12.3; Neutrophils % 70.5; Platelet Count 203 10^3/uL (130-400); RBC 3.22 10^6/uL (3.93-5.22); RDW-SD 48.7 fL; WBC 8.23 10^3/uL (4.4-10.8)
[2022-12-26 06:37] LABS: Anion Gap 2.8 mmol/L (3-11); BUN 34 mg/dL (7-18); CO2 38.2 mmol/L (21.0-32.0); CREATININE 0.9 mg/dL (0.55-1.02); Calcium 8.3 mg/dL (8.5-10.1); Chloride 100 mmol/L (98-107); Estimated GFR 69.64 (mL/min/1.73m2); Glucose 147 mg/dL (74-106); Magnesium 1.9 mg/dL (1.8-2.4); Potassium 3.5 mmol/L (3.5-5.1); Sodium 141 mmol/L (136-145)
--- NOTE | 2022-12-26 07:53 | OT.INTREAT ---
Occupational Therapy Notes Occupational Therapy Inpatient Treatment Note Date: 12/26/22 PRECAUTIONS: Fall, standard, Full SUBJECTIVE: Pt was sitting in chair when OT arrived. She is pleasant and states that she would like to get washed up. She notes that her tremor is more of a concern for everyone else and that it doesn't bother her. She states that she just lives with it. She is receptive to training on tremor control so OT and pt go over this today. OBJECTIVE: PAIN:no c/o pain during session BATHING: seated with max (A) set up Upper Body: (I) face, neck and abdomen, min (A) (B) UE due to wires for O2 and heart monitor, max (A) hair and back Lower Body: (I) DRESSING: seated in chair Upper Extremity: Mod [facility]A) [facility] Lower Extremity: Max (A) GROOMING: with max (A) Set up she was able to brush her teeth (I). She required (A) for opening and closing containers. When t holds her tooth brush she utilizes 2 hands for support. With vc and tremor control cues she is able to brush with 1 hand. (I) with brushing hair in the seated position with ideal technique ASSESSMENT/PLAN: Pt is more alert today, she does require support to her core while seated for ADLs. She has a tremor which she was able to manage with regulatory techniques which OT provided her education in. Functionally she was fairly (I) with her ADLs. She does require 2 hands for certain tasks like opening containers. Overall she is doing well and OT will continue to work with pt to progress her functional (I). TREATMENT CODES/TIME: [id number], 30 minutes Leonor Mcpherson OTR/L [facility]
[2022-12-26] MEDS: Omega-3 Fatty Acids 1000 MG CAP PO (08:28)
[2022-12-26] MEDS: Fexofenadine 180 MG TAB PO (08:28)
[2022-12-26] MEDS: Calcium 600mg/Vit D 200U TAB 1 TAB PO (08:28)
[2022-12-26] MEDS: Gabapentin 100 MG CAP 200 MG PO ×3 (08:28→19:51)
[2022-12-26] MEDS: Glucosamine/Chondroitin CAP 1 CAP PO ×3 (08:28→19:51)
[2022-12-26] MEDS: Doxycycline Hyclate 100 MG CAP PO ×2 (08:28→19:50)
[2022-12-26] MEDS: Furosemide 40 MG/4 ML VIAL IVP (08:28)
[2022-12-26] MEDS: Celecoxib 200 MG CAP PO ×2 (08:29→19:51)
[2022-12-26] MEDS: Magnesium Lactate-SR 84 MG TABCR 168 MG PO ×2 (08:29→19:50)
[2022-12-26] MEDS: Pantoprazole 40 MG TABCR PO (08:29)
[2022-12-26] MEDS: Multivitamin TAB 1 TAB PO (08:29)
[2022-12-26] MEDS: guaiFENesin 600 MG TABCR 1200 MG PO ×2 (08:29→19:50)
[2022-12-26] MEDS: Apixaban 5 MG TAB PO ×2 (08:29→19:51)
[2022-12-26] MEDS: Mometasone 220 MCG 14 DOSE INHALER 2 PUFF IH ×2 (08:42→20:00)
[2022-12-26] MEDS: Tiotropium/Olodaterol 10 PUFF INHALER 2 PUFF IH (08:43)
--- NOTE | 2022-12-26 10:09 | DSE_ITS ---
Date of service: 12/26/22 Time of Service: 10:09 DS: Diagnosis Discharge Diagnosis (1) Fracture of femoral neck, right: Status: Acute (2) Pneumonia: Status: Acute (3) Congestive heart disease: Status: Chronic (4) Low oxygen saturation: Status: Acute (5) Chronic obstructive lung disease: Status: Chronic (6) Depressed bipolar I disorder: Status: Chronic (7) Intention tremor: Status: Chronic (8) Osteopenia: Status: Chronic (9) Atrial fibrillation status post cardioversion: Discharge Plan Disposition Patient Disposition: [facility]) Condition: Stable Discharge Details Reason For Visit: Right Hip Fracture Admit Date/Time: 12/21/22 20:12 Admit Provider: Justyn Shepherd Attending Provider: Justyn Shepherd Primary Care Provider: Denis Constantino Hospital Course Hospital Course: This is a 67 yo female with a PMH of Afib, COPD, tobacco abuse disorder, ADHD, MS, osteopenia who suffered a mechanical fall resulting in a fracture of the right hip. She underwent a right hip percutaneous cannulated scew internal fixation on December 22. Hospital course was complicated by fluid overload and she was diuresed with good effect, we tried to obtain an echocardiogram but at the time her heart rate was uncontrolled with a rate in the 130's. She had been started on lopressor and dose adjusted to 25 mg po tid. Blood pressure and heart rate should be followed and meds adjusted as needed. She follows up outpatient with Dr Pascal with cardiology and should see her after discharge from rehab. She was also treated with doxycycline and cefepime and will be discharged on 5 more days of cefpodoxime and doxycycline. Her respiratory status is stable but she is still requiring 1 liter by nc to maintain sats in low 90's. She should continue aggressive pulmonary toileting with cough and deep breath, i/s and acapella. she will need bowel regimen to keep stooling regular as she is at risk for constipation discharge discussed with DR Shepherd. Home Meds and New Rx's Prescriptions: New metoprolol tartrate 25 mg Tablet 25 mg PO TID Qty: 0 0RF doxycycline hyclate 100 mg Capsule 100 mg PO BID Qty: 10 0RF cefpodoxime 200 mg tablet 200 mg PO BID Qty: 10 0RF Rx Instructions: must administer with a meal/food celecoxib 200 mg Capsule 200 mg PO BID Qty: 0 0RF polyethylene glycol 3350 17 gram Powder In Packet 17 g PO DAILY Qty: 0 0RF Continued calcium carbonate-vitamin D3 600 mg-5 mcg (200 unit) tablet 1 tab PO DAILY Qty: 90 3RF dextroamphetamine-amphetamine 30 mg tablet 30 mg PO BID MDD 60mg Qty: 56 0RF Rx Instructions: administer doses at least 4-6 hours apart albuterol sulfate 2.5 mg/0.5 mL solution for nebulization 5 mg inhalation Q4H Qty: 100 0RF Rx Instructions: please deliver Mucinex 1,200 mg tablet extended release 12hr 1,200 mg PO BID Qty: 60 12RF Stiolto Respimat 2.5-2.5 mcg/actuation mist 2 puff inhalation DAILY Qty: 4 12RF multivitamin [Daily Vitamin] 1 EACH tablet 1 ea PO DAILY omega-3 fatty acids 100 MG tablet,chewable 1,000 mg PO DAILY fexofenadine-pseudoephedrine 180-240 mg tablet extended release 24 hr 1 tab PO QAM Qty: 90 4RF Hold Instructions: Home Medication placed on hold at Doctor's office Eliquis 5 mg tablet 5 mg PO BID Qty: 180 4RF acetaminophen [Tylenol Arthritis Pain] 650 mg tablet extended release 650 mg PO Q12H PRN (Reason: pain) Qty: 180 4RF albuterol sulfate [ProAir HFA] 90 mcg/actuation HFA aerosol inhaler 2 puff IH Q6H PRN (Reason: shortness of breath or wheezing) Qty: 18 2RF propranolol 20 mg tablet 20 mg PO BID PRN (Reason: tremor) Qty: 180 1RF Rx Instructions: Dosage increase gabapentin 100 mg capsule 200 mg PO TID Qty: 180 3RF magnesium L-lactate [Magtab] 84 mg tablet extended release 168 mg PO BID Qty: 180 2RF potassium chloride 10 mEq capsule, extended release 10 meq PO BID Qty: 180 4RF pantoprazole 40 mg tablet,delayed release (DR/EC) 40 mg PO DAILY Qty: 90 2RF glucosamine-chondroitin 500-400 mg capsule 1 cap PO TID Qty: 90 11RF Rx Instructions: give with meal/snack All Day Allergy (cetirizine) 10 mg capsule 10 mg PO DAILY PRN (Reason: allergy symptoms) Qty: 30 11RF Hold Instructions: Home Medication placed on hold at Doctor's office temazepam 15 mg capsule 15 mg PO BID PRN (Reason: insomnia) Qty: 60 2RF dimethyl fumarate [Tecfidera] 240 mg Capsule,Delayed Release(Dr/Ec) 240 mg PO BID fluticasone propionate 220 mcg/actuation Hfa Aerosol Inhaler 1 puff INHALATION BID Discharge Instructions Instructions: Heart Failure (DC), A-fib (Atrial Fibrillation) (DC), Pneumonia (DC), ORIF of Hip Fracture (DC) Additional Instructions: Continue multimodal pain control, PT, WBAT with walker. ? Eliquis may serve as chemical DVT prophylaxis.? Mechanical DVT prophylaxis with SCDs Follow-up with Dr. Samuels outpatient [facility] SaturdayJANUARY 08 AT 11:30am: Keep Mepilex in place for 5-7 days, may then remove and cover incisions with Band-Aids Appreciate medical management Stand Alone Forms: Nursing Discharge Form Referrals: Gregorio Samuels MD [ [facility] STAFF PHYSICIAN] - 01/08/23 11:30 am Activity:: Activity as Tolerated Equipment/Supplies:: No Equipment Needed Diet:: Carb Counting DS: Summary Time Spent with Patient providing and/or coordinating discharge services: Greater than 30 minutes Status at Discharge Functional status at discharge: uses cane/walker Overall status at discharge: patient is progressing back to baseline Mental Status: mental status grossly normal Speech and Movement: speech and movement normal Mood: congruent mood Affect: normal affect Exam Const General: cooperative, frail appearing and ill appearing (older than stated age) chronically Nutritional Appearance: average body habitus HENMO Head: normal to inspection, normocephalic and atraumatic Mouth: oral mucosae normal Chest Chest: normal inspection of the chest Resp Effort & Inspection: normal respiratory effort Cardio Rate: tachycardic Rhythm: abnormal rhythm GI Inspection: normal to inspection and distended Palpation: soft Auscultation: normal bowel sounds Skin Lesions: lesion noted (dressing intact) Rashes: no rashes Extrem General: pedal edema (R>L, trace, good strong pulse) bilaterally and other (discoloration to shins, appearance of petechia ) Psych Mental Status: mental status grossly normal Speech and Movement: speech and movement normal Mood: congruent mood Affect: normal affect DS: Data Vitals/I&O Vitals and I&O: Vital Signs Temperature 37.1 C 12/26/22 08:00 Temperature Source Tympanic 12/26/22 08:00 Pulse 108 H 12/26/22 08:00 Pulse Rhythm Irregular 12/26/22 01:52 Respiratory Rate 20 12/26/22 08:00 Respiratory Effort Normal, Non-Labored 12/26/22 01:52 Respiratory Depth Normal 12/26/22 01:52 Respiratory Pattern Normal 12/26/22 01:52 Blood Pressure 105/66 12/26/22 08:00 Blood Pressure Mean 68 12/21/22 20:15 Blood Pressure Position Sitting 12/21/22 16:19 Pulse Oximetry 93 12/26/22 09:12 Oxygen Delivery Method Nasal Cannula 12/26/22 09:12 Oxygen Flow Rate 1 12/26/22 09:12 Pain Level 5 12/25/22 23:39 Comment sats fluctuate. down to 87 up 94, using acapella 12/23/22 21:22 Intake & Output 12/25/22 12/25/22 12/26/22 11:59 23:59 11:59 Intake Total 1280 / 2380 1100 / 2380 100 / 100 Output Total 2575 / 4175 1600 / 4175 725 / 725 Balance -1295 / -1795 -500 / -1795 -625 / -625 Weight 57.878 kg Intake: IV 1100 / 1360 260 / 1360 100 / 100 Oral 180 / 1020 840 / 1020 Output: Urine 2575 / 4175 1600 / 4175 725 / 725 Other: Urine Color Pale Yellow Yellow Urine Appearance Clear Clear Clear Data Completed and Pending Labs on day of discharge: Labs from last 24 hours 12/26/22 12/26/22 12/25/22 05:52 05:52 06:08 WBC 8.23 RBC 3.22 L Hgb 10.0 L Hct 31.2 L MCV 97 H MCH 31.1 MCHC 32.1 RDW 14.0 Plt Count 203 MPV 10.7 Immature Gran % 0.5 Neutrophils % 70.5 Lymphocytes % 13.6 Monocytes % 12.3 Eosinophils % 2.9 Basophils % 0.2 Nucleated RBC % 0.0 Absolute Neutrophils 5.80 Absolute Lymphocytes 1.12 L Absolute Monocytes 1.01 H Absolute Eosinophils 0.24 Absolute Basophils 0.02 Sodium 141 Potassium 3.5 Chloride 100 Carbon Dioxide 38.2 H Anion Gap 2.8 L BUN 34 H Creatinine 0.9 Est GFR (CKD-EPI 2020) 69.64 Glucose 147 H Calcium 8.3 L Magnesium 1.9 Procalcitonin < 0.1 Urine Legionella Ag Add-On Test Request 12/25/22 12/24/22 06:08 21:50 WBC RBC Hgb Hct MCV MCH MCHC RDW Plt Count MPV Immature Gran % Neutrophils % Lymphocytes % Monocytes % Eosinophils % Basophils % Nucleated RBC % Absolute Neutrophils Absolute Lymphocytes Absolute Monocytes Absolute Eosinophils Absolute Basophils Sodium Potassium Chloride Carbon Dioxide Anion Gap BUN Creatinine Est GFR (CKD-EPI 2020) Glucose Calcium Magnesium Procalcitonin Urine Legionella Ag Negative Add-On Test Request DONE Preliminary micro results at discharge 12/22/22 19:40 Blood Culture - Preliminary Blood NO GROWTH 72 HOURS 12/22/22 19:40 Blood Culture - Preliminary Blood NO GROWTH 72 HOURS 12/24/22 17:27 Blood Culture - Preliminary Blood NO GROWTH 24 HOURS 12/24/22 17:19 Blood Culture - Preliminary Blood NO GROWTH 24 HOURS PFSH All Active Problems (Updated 12/25/22 @ 18:36 by Farideh Senior NP) Pneumonia (Acute) Congestive heart disease (Chronic) Discharge planning issues (Acute) DVT prophylaxis (Acute) Low oxygen saturation (Acute) Fracture of femoral neck, right (Acute 12/20/22) Hypoxia (Acute) Adult ADHD (Chronic 07/15/14) Atrial fibrillation and flutter (Chronic 05/26/15) No atrial fib since started on Tikosyn Chronic obstructive lung disease (Chronic) Conductive hearing loss, 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) Depressed bipolar I disorder (Chronic) GERD (gastroesophageal reflux disease) (Chronic 05/26/15) Intention tremor (Chronic) senior living current use of antiarrhythmic medical therapy (Chronic 12/23/15) Osteopenia (Chronic) Seborrheic dermatitis of scalp (Chronic 03/13/16) Smoker (Chronic) 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) Multiple sclerosis, relapsing-remitting (Acute) Weight loss (Acute) Environmental and seasonal allergies (Chronic) Ceruminosis (Acute) COPD exacerbation (Acute) Medical History Acute idiopathic gout involving toe of left foot (02/16/16) Asthma Atrial fibrillation status post cardioversion (12/23/15) Atrophic vaginitis (05/17/16) Chronic bronchitis COPD with chronic bronchitis Dysfunctional uterine bleeding Dyspnea Family hx-breast malignancy mother Ganglion cyst of finger of left hand Multiple sclerosis (06/25/09) Paroxysmal atrial fibrillation Pneumonia Polyp of colon Vaginal wall prolapse (04/16/12) Surgical History Augmentation mammoplasty IMPLANT Bilateral salpingectomy with oophorectomy History of bilateral ligation of fallopian tubes Family History Mother , 60's Cancer skin & breast cancer Father , 70's Cancer Bladder Social History Smoking/Tobacco Use Status: Current every day Tobacco Type: cigarettes Smoking packs per day: 1 Smoking cigarettes per day: 20.0 Tobacco: How many years used: 45 Quit status: considering quitting Second Hand Exposure: Yes Counseling given: provider counseling Smoking risk assessment performed?: Yes Alcohol Intake: former Drug use: Never Substance use type: does not use Adopted: No Foster care: No Household members: friend(s) Housing: house Number of Children: 1 Communication Needs: Corrective Lenses Do you need help understanding health information?: Rarely Pets and animals: Yes (Therapy dog) Pets and animals: dog(s) Sexually active: No Do you think of yourself as: straight/heterosexual Current gender identity: female What is your relationship status?: How often do you talk on the phone with friends or family?: once per week How often do you get together with friends or relatives?: decline to answer How often do you attend amish or yarsanism services?: decline to answer Do you belong to any clubs or organized social groups?: no Panel score (0-1 are the most socially isolated patients): 0 What type of physical activity do you participate in: walking and yoga Duration: < 15 minutes/day Frequency: 3-4 times per week Kaye/Samaritan: No preference Special kaye needs: No Seatbelt use: always Drive intox or ride w/intox van driver helper: No Do you feel safe at home: Yes Do you feel safe in your relationship?: Yes Time Spent with Patient Time Spent with Patient: 45-69 minutes Time was spent: preparing to see the patient(eg.review tests), ordering medications,tests, procedures, referring, communicating with other health neonatal intensive care nurse, indepentently interpreting results, counseling the patient and care coordination
--- NOTE | 2022-12-26 10:35 | CHAPLAIN ---
Renu was sitting up in the chair finishing breakfast when I visited this morning. She told me she is feeling a little dizzy and would like to get back to bet. I suggest to use the call sierra if she needs the nurse and she said she would wait and see if the nurse arrives soon. Renu told me she's met two doctors since she's been here, and they told her conflicting things. She hopes to meet with her main doctor today. I explained my role and offered support. Renu said she's in touch with family and her daughter lives nearby.
[2022-12-26] MEDS: Dofetilide 250 MCG CAP PO ×2 (10:37→21:38)
[2022-12-26] MEDS: Acetaminophen 325 MG TAB 650 MG PO ×2 (10:37→18:22)
[2022-12-26] MEDS: Nicotine 14 MG/24 HR PATCH TD (10:42)
[2022-12-26] MEDS: Polyethylene Glycol 3350 17 GM PACKET PO ×2 (11:16→19:52)
[2022-12-26] MEDS: Metoprolol 5 MG/5 ML VIAL IVP (12:08)
[2022-12-26 12:36] LABS: Source Nasal/Nares
[2022-12-26 13:28] LABS: COVID-19 PCR Negative (Negative)
[2022-12-26] MEDS: Metoprolol 25 MG TAB PO (13:53)
--- NOTE | 2022-12-26 16:21 | PTTR_ITS ---
Date of service: 12/26/22 Time of Service: 11:26 PT Notes Visit Reasons: Right Hip Fracture Inpatient Physical Therapy Treatment Note Date: 12/26/2022 Precautions: WBAT on R LE with AD.? Fall.? Standard.? Subjective:? Reports 5-6/10 pain in surgery site with exercise performance.? Willing to work with PT for this session. Complained of dizziness at end of the short walk that subsided with rest. Objective:? General Observation:? Patient is on 0.5 L of O2/min via nasal cannula. No intention tremor in extremities noted with movement. Mental Status: Alert and oriented x3 Pain: 5-6/10 pain in surgery site with exercise performance Vital Signs:? HR at rest at 128 bpm and in the 140s bpm with ambulation; oxygen saturation remained WNL throughout Bed Mobility/Transfers:? Supine to sit minimal assist to R LE Sit to stand contact guard assist of 2 Gait:? 20 feet using FWW with contact guard assist.? Demonstrated improved walker management. Minimal cueing provided to increase step height and length. Required minimal assist during turning as patient reported beginning dizziness. Mild path deviation noted. No tremors noted in the limbs with movement. WATER T[employer]ATMENT PLANT SUPERVISOR Clare assisting for safety. NEURO RE-ED: Training provided to increase motor control, improve posture, and normalize gait pattern to reduce fall risk and progress mobility level utilizing the following exercises: Seated quads sets x 5 with 5 sh Seated gluteal sets x 5 with 5 sh Ankle pumps x 10 Seated hip abduction to L/Partila hip abduction to R x 5 Balance:? Static Sitting: Good Dynamic Sitting: Fair Static Standing: Fair Dynamic Standing: Fair Assessment:?? Patient is a 67-year old female S/P ORIF with right hip percutaneous cannulated scew of minimally displaced R femoral neck fracture on POD 4.? Tremors now resolved. HR responses normalizing but still relatively higher. Gait pattern improving. Lightheadedness limiting distance covered. DISCHARGE RECOMMENDATIONS: [] ? Home with no services [] [] ? Home with services [specify] [] ? Home with outpatient PT [] [] ? SNF for continued rehabilitation [] [] ? Inventory Clerk Care [] [] ? SNF versus LTC based on ability to participate and progress [] [X] ? SNF vs.? HH PT based on progress towards goals.? Significant other is also disabled and will not be able to provide care needs of current care needs of patient.? Daughter lives in the next town but worsk during the day and will not be fully available. TREATMENT CODE/TIME: 42264 x 34 minutes beginning at 10:26 AM.
--- NOTE | 2022-12-26 16:29 | PT.INTREAT ---
PT Notes Visit Reasons: Right Hip Fracture Date: 12/26/2022 PRECAUTIONS: Fall, WBAT R, activity as tolerated SUBJECTIVE: Pt in recliner when approached for therapy this afternoon, pt agreed to participating with therapy. OBJECTIVE: ? PAIN: no pain at rest ? BED MOBILITY/TRANSFERS? Supine-sit: SBA? Sit-supine: SBA ? Sit-stand: CGA? Stand-sit: CGA ? GAIT? Assistive Device: FWW? Weight bearing: WBAT R Assist: CGA - SBA ? Distance:? 20', 10' in p.m. ? Deviation: Short step-height and length, step-through gait pattern, slow pacing ? VITALS:? 117 bpm pre activity, 128 bpm during, 110 bpm in bed after session. ASSESSMENT:? Patient tolerated session well, pt did not complain of pain during session, pt education with bed transfers using leg lift wit pt able to execute transfer with proper technique and safety. bed mobility supervision. PLAN: Continue with LE strengthening and gait and transfer training for improved mobility and activity tolerance. TREATMENT CODE/TIME: ? 25 minutes; 31606 x2 (04:10-04:35pm)
[2022-12-26] MEDS: Milk of Magnesia 30 ML CUP PO (17:33)
--- NOTE | 2022-12-26 17:41 | CMPROGNOTE_ITS ---
- If Service Date Differs Date of service: 12/26/22 Time of Service: 17:41 Care Management Progress Note S/O: Renu was sitting up in her chair when CM visited with her. CM reviewed her plan to go to [facility] once her PA is approved. Her daughter will provide transport. [facility] received her PA later in the afternoon, and will accept her for admission tomorrow morning. CM will continue to follow. A: 67 year old female admitted to [facility] on 12/21/22 s/p Fracture of femoral neck, right P: Anticipate, Renu will discharge to SNF for STR prior to discharging home. SNF referral's are pending at [facility], [facility] and [facility]. Transportation will be dependent on mobility and disposition. Renu will follow up with community providers and discharge plan of care as prescribed. CM will continue to support discharge planning considerations.
[2022-12-26] MEDS: Bisacodyl 10 MG SUPP PR (19:51)
[2022-12-26 23:21] LABS: Streptococcus Pneumoniae Ag, U Negative (Negative)
[2022-12-27] VITALS (8 sets, daily range): BP systolic 118–129; BP diastolic 65–74; PULSE 119–151; RESP 17–20; TEMP 36.6–37.2; O2SAT 92–97
[2022-12-27] MEDS: Metoprolol 5 MG/5 ML VIAL IVP ×2 (04:02→08:16)
[2022-12-27] MEDS: Normal Saline Flush 10 ML SYR IVP ×2 (04:03→08:17)
--- NOTE | 2022-12-27 08:00 | DI.RAD_ITS ---
Exam(s) XR HIP RT AP LAT ONLY EXAM: XR HIP RT AP LAT ONLY INDICATION: Rt hip fx. COMPARISON: CR,XR XR PELVIS AP from 12/21/2022 CR,XR XR FEMUR RT from 12/21/2022 XA XR HIP RT IN OR from 12/22/2022 TECHNIQUE: 2D digital imaging was performed. Two views. FINDINGS: Three partially threaded screws are again noted in the femur for fracture fixation. There has been n o change in fracture or hardware alignment. Mild degenerative changes are present. DATA REPOSITORY: RADIATION DOSE DELIVERED:
[2022-12-27] MEDS: Doxycycline Hyclate 100 MG CAP PO (08:12)
[2022-12-27] MEDS: Fexofenadine 180 MG TAB PO (08:12)
[2022-12-27] MEDS: Gabapentin 100 MG CAP 200 MG PO (08:13)
[2022-12-27] MEDS: Multivitamin TAB 1 TAB PO (08:13)
[2022-12-27] MEDS: Glucosamine/Chondroitin CAP 1 CAP PO (08:13)
[2022-12-27] MEDS: Omega-3 Fatty Acids 1000 MG CAP PO (08:13)
[2022-12-27] MEDS: Apixaban 5 MG TAB PO (08:14)
[2022-12-27] MEDS: guaiFENesin 600 MG TABCR 1200 MG PO (08:14)
[2022-12-27] MEDS: Magnesium Lactate-SR 84 MG TABCR 168 MG PO (08:14)
[2022-12-27] MEDS: Pantoprazole 40 MG TABCR PO (08:14)
[2022-12-27] MEDS: Calcium 600mg/Vit D 200U TAB 1 TAB PO (08:15)
[2022-12-27] MEDS: Celecoxib 200 MG CAP PO (08:15)
[2022-12-27] MEDS: Polyethylene Glycol 3350 17 GM PACKET PO (08:15)
[2022-12-27] MEDS: Metoprolol 25 MG TAB PO (08:15)
[2022-12-27] MEDS: Mometasone 220 MCG 14 DOSE INHALER 2 PUFF IH (08:42)
[2022-12-27] MEDS: Tiotropium/Olodaterol 10 PUFF INHALER 2 PUFF IH (08:42)
--- NOTE | 2022-12-27 09:00 | DI.US_ITS ---
APPROVED REPORT EXAM: Comprehensive 2D, Doppler, and color-flow Echocardiogram Patient Location: In-Patient Room/Bed: 225 Senior Accounting Manager: Haley Barraza RDCS (AE) Indications: New onset CHF Other Information Study Quality: Adequate Conclusion Normal left ventricular wall thickness and chamber size. Estimated ejection fraction is 55%. There are no segmental wall motion abnormalities Dilated right ventricle. Paradoxical septal motion consistent with right ventricular volume overload Right atrium is moderately to severely dilated Left atrium is mildly dilated There are no structural valvular abnormalities Moderate tricuspid regurgitation. Estimated right ventricular systolic pressure is 47 mmHg Wall motion Left Ventricle The left ventricle is normal size. The left ventricular systolic function is normal. The left ventric ular ejection fraction is within the normal range. There is normal left ventricular wall thickness. F lattened septum consistent with right ventricular volume and pressure overload. There is no ventricul ar septal defect visualized. LVEF is 55%. Right Ventricle Right ventricle is moderate to severely dilated. Right ventricle is mildly hypokinetic. The RVSP is 4 6.9 mmHg. Atria Left atrium is mildly dilated. Right atrium is moderate to severely dilated. The interatrial septum i s intact with no evidence for an atrial septal defect. Aortic Valve The aortic valve is normal in structure. Aortic valve is trileaflet. There is no aortic valvular sten osis. Trace aortic regurgitation. Mitral Valve The mitral valve is normal in structure.. No evidence of mitral valve stenosis. Trace mitral regurgi tation. Tricuspid Valve The tricuspid valve is normal in structure. There is no tricuspid valve stenosis. Moderate tricuspid regurgitation. Pulmonic Valve The pulmonary valve is normal in structure. There is no pulmonic valvular stenosis. Trace pulmonic re gurgitation. Great Vessels The aortic root is normal in size. The ascending aorta is normal in size. The IVC collapses <50% with inspiration. Pericardium There is no pericardial effusion. 2D Dimensions IVSD d PLAX 0.71 cm F: 0.6-1.0 LV Vol A2C d MOD 71.2 mL LVPW d PLAX 0.72 cm F: 0.6 - 1.0 LV Vol A4C d MOD 60.3 mL LVID d PLAX 4.17 cm F: 3.8 - 5.2 LV EF A4C MOD 55.0 % LVDs 2.88 cm F: 2.2 - 3.5 LV EF A2C MOD 48.0 % Ao Root d 2.89 cm F: 2.7 - 3.3 LV EF Biplane MOD 50.4 % Ao Asc Diam d 2.94 cm F: 2.3 - 3.1 SV 32.97 mL LV EF Teichholz 58.0 % SV Index 19.98 mL/m2 LVEF (Mccray's) 50.44 % F: 54 - 74 LV Volume 52.48 mL F: 46 - 106 LV Volume Index 31.80 mL/m2 F: 29 - 61 LV Vol Biplane MOD 65.3 mL FS 30.35 % M-Mode TAPSE 1.82 cm (M/F) >1.7 LV Diastology MV E' medial 0.105 (>0.07 m/s) MV E Vmax 0.81 (0.4-1.3 m/s) LV E/e MED 7.65 (<14) MV E' lateral 0.172 (>0.1 m/s) LV E/e LAT 4.65 (<14) MV E/E' medial 7.69 MV E/E' lateral 4.69 Aortic Valve LVOT Area 2.66 cm2 AoV Area Vmax 2.03 cm2 LVOT Vmax 0.96 m/s AoV Area/ BSA (Vmax) 1.23 cm2/m2 LVOT Mean Grant. 0.63 m/s TANYA Mean Grant. 1.77 cm2 LVOT Peak Grad 3.7 mmHg TANYA Mean Grant. Index 1.08 cm2/m2 LVOT Mean Grad 1.7 mmHg LVOT VTI 0.156 m LVOT Diam s 1.80 cm AoV Vmax 1.25 m/s Velocity Ratio 0.77 AoV Mean Grant. 0.94 m/s AoV Peak Grad 6.3 mmHg LVOT SV 41.30 mL AoV Mean Grad 3.8 mmHg AoV VTI 0.187 m AoV Area VTI 2.23 cm2 AoV Area/ BSA (VTI) 1.35 cm/m2 Mitral Valve MV DT 136 (160-240 msec) MV PHT 39 msec MV Area PHT 5.59 cm2 Pulmonary Valve PV Vmax 1.06 (0.5-1.5 m/s) RVOT Peak Gr. 2.90 mmHg PV Peak Grad 4.5 mmHg RVOT Mean Gr. 1.25 mmHg PV Mean Grad 2.6 mmHg RVOT VTI 0.128 m PV VTI 0.148 m RVOT Vmax 0.85 m/s Tricuspid Valve TR Peak Grad 38.3 mmHg TR Vmax 3.10 m/s RA Pressure 8.00 mmHg RVSP (TR) 46.9 mmHg
--- NOTE | 2022-12-27 10:07 | PDOC.CMDIS ---
- If Service Date Differs Date of service: 12/27/22 Time of Service: 10:07 LACE Index Scoring Tool - Questions: Length of Stay (in days): 4 - 6 Acuity (Admit via E.D.?): Yes Comorbidities: Chronic Pulmonary Disease E.D. Visits: 2 - Answers: Total Score: 11 Risk of Readmission: High Risk Care Management Discharge Reason for Hospitalization: Fracture of femoral neck, right Discharge Plan: Renu will go to [facility] today for short term rehab. Her daughter will drive her to the facility via private vehicle. She will follow up with her PCP and discharge plan of care. Patient/Family Education Needs: Review discharge instructions and limitations, discussion of self care needs including ask me three. Services Needed at Discharge: Jail Facility ([facility])
[2022-12-27] MEDS: Dofetilide 250 MCG CAP PO (10:24)
[2022-12-27] MEDS: Nicotine 14 MG/24 HR PATCH TD (10:30)
[2022-12-29 14:19] LABS: Mycoplasma Pneumoniae PCR Negative; Specimen source Nasal
== END 2022-12-27 11:05 | disposition skilled nursing facility (03) | DRG 480 ==
LOC: ER 20:24 → MS 21:49
PROVIDERS: Nurse Practitioner Acute Care; Nurse Practitioner Family; Student in an Organized Health Care Education/Training Program; Admitting Provider Family Medicine; Emergency Provider Registered Nurse Emergency; PCP Nurse Practitioner Family; Visit Provider Family Medicine
PROC: 0QS634Z Reposition Right Upper Femur with Internal Fixation Device, Percutaneous Approach (ICD-10-PCS; CPT 27235; principal; 2022-12-22 10:00)
DX: S72.001A Fracture of unspecified part of neck of right femur, initial encounter for closed fracture (principal); J18.9 Pneumonia, unspecified organism; J44.0 Chronic obstructive pulmonary disease with (acute) lower respiratory infection; F31.9 Bipolar disorder, unspecified; G25.2 Other specified forms of tremor; M85.80 Other specified disorders of bone density and structure, unspecified site; I48.0 Paroxysmal atrial fibrillation; I50.9 Heart failure, unspecified; G35 Multiple sclerosis; F17.210 Nicotine dependence, cigarettes, uncomplicated; K21.9 Gastro-esophageal reflux disease without esophagitis; Z79.899 Other long term (current) drug therapy; W18.39XA Other fall on same level, initial encounter; M47.812 Spondylosis without myelopathy or radiculopathy, cervical region; L21.0 Seborrhea capitis; F90.9 Attention-deficit hyperactivity disorder, unspecified type; R09.02 Hypoxemia
CPT/HCPCS: 27235; 36415; 51702; 73552; 76000; 76604; 80048; 80053; 82805; 84145; 87040; 87081; 87449; 87635; 93306; 94640; 97110; 97112; 97162; 97166; 97530; 97535; 99223; 99285; 71045; 71046; 72170; 73501; 73502; 73700; 81003; 81015; 83036; 83735; 83880; 85025; 85610; 85730; 86140; 87070; 87205; 87581; 87899; 93005; 93010; 94664; 94667; 94668; 94760; 99232; 99239; J0690; J1100; J1940; J2270; J2370; J2405; J2704; J3490; J7613; J7620

== ENCOUNTER → 2023-01-08 11:30 | Outpatient (BNVA) | payer OTHER, MEDICAID, SELFPAY | PROVIDERS: PCP Nurse Practitioner Family; Referring Provider Nurse Practitioner Family; Visit Provider Student in an Organized Health Care Education/Training Program ==

== ENCOUNTER 2023-01-22 17:21 | Outpatient (REF) | payer OTHER, MEDICAID, SELFPAY ==
[2023-01-22 17:36] LABS: Abs Immature Grans 0.02 10^3/uL (0.0-0.06); Absolute Basophil Count 0.05 10^3/uL (0.0-0.2); Absolute Eosinophil Count 0.23 10^3/uL (0.0-0.7); Absolute Lymphocyte Count 1.16 10^3/uL (1.2-3.4); Absolute Monocyte Count 0.65 10^3/uL (0.1-0.8); Basophils % 0.8; Eosinophils % 3.6; HCT 36.8 % (36.0-46.0); HGB 11.2 g/dL (11.2-15.7); Immature Grans % 0.3; Lymphocytes % 18.4; MCH 29.2 pg (27.0-33.0); MCHC 30.4 % (32.0-36.0); MCV 96 fL (80-95); MPV 10.7 fL (8.0-11.0); Monocytes % 10.3; Neutrophils % 66.6; Platelet Count 265 10^3/uL (130-400); RBC 3.84 10^6/uL (3.93-5.22); RDW 15.5 % (11.7-14.6); RDW-SD 54.5 fL; WBC 6.31 10^3/uL (4.4-10.8)
[2023-01-22 17:57] LABS: Iron 48 ug/dL (50-170); Total Iron Binding Capacity 480 ug/dL (250-450); Transferrin Sat 10 % (15-50)
[2023-01-22 18:20] LABS: Vitamin D 25 Total 47.3 ng/mL (30-100)
[2023-01-22 18:21] LABS: ALT 20 U/L (14-59); AST 20 U/L (15-37); Albumin 3.4 g/dL (3.4-5.0); Alkaline Phosphatase 120 U/L (46-116); Anion Gap 6.5 mmol/L (3-11); BUN 22 mg/dL (7-18); CO2 32.5 mmol/L (21.0-32.0); CREATININE 0.9 mg/dL (0.55-1.02); Calcium 9.2 mg/dL (8.5-10.1); Chloride 103 mmol/L (98-107); Estimated GFR 69.64 (mL/min/1.73m2); Ferritin 47 ng/mL (8-252); Glucose 128 mg/dL (74-106); Magnesium 1.9 mg/dL (1.8-2.4); Potassium 4.3 mmol/L (3.5-5.1); Sodium 142 mmol/L (136-145); TSH (W/Ref FT4) 0.45 uIU/mL (0.36-3.74); Total Protein 6.9 g/dL (6.4-8.2)
[2023-01-22 18:32] LABS: Folate > 20.0 ng/mL (8.6-20.0)
[2023-01-22 18:52] LABS: NT-proBNP 4638 pg/mL (<300)
[2023-01-22 22:55] LABS: Hemoglobin A1C 6.6 % (<5.7)
[2023-01-23 10:46] LABS: Vitamin B12 552 pg/mL (193-986)
== END 2023-01-22 17:22 | disposition home or self-care (01) ==
LOC: LBN 17:21
PROVIDERS: PCP Nurse Practitioner Family; Visit Provider Nurse Practitioner Gerontology
DX: R68.89 Other general symptoms and signs (principal); J18.9 Pneumonia, unspecified organism; S72.144D Nondisplaced intertrochanteric fracture of right femur, subsequent encounter for closed fracture with routine healing; D51.9 Vitamin B12 deficiency anemia, unspecified; G35 Multiple sclerosis
CPT/HCPCS: 80053; 82306; 82607; 82728; 82746; 83036; 83540; 83550; 83735; 83880; 84443; 85025

== ENCOUNTER 2023-01-23 15:06 | Outpatient (CLI) | payer OTHER, MEDICAID, SELFPAY ==
--- NOTE | 2023-01-23 10:45 | DI.RAD_ITS ---
Exam(s) XR HIP RT AP LAT ONLY EXAM: XR HIP RT AP LAT ONLY INDICATION: f/u fx. COMPARISON: CR,XR XR FEMUR RT from 12/21/2022 XA XR HIP RT IN OR from 12/22/2022 CR XR HIP RT AP LAT ONLY from 12/27/2022 TECHNIQUE: 2D digital imaging was performed. Two views. FINDINGS: There has been no change in fracture or hardware alignment. No new abnormalities are seen. DATA REPOSITORY: RADIATION DOSE DELIVERED:
== END 2023-01-23 15:07 | disposition home or self-care (01) ==
LOC: DIORS 15:07
PROVIDERS: PCP Nurse Practitioner Family; Referring Provider Nurse Practitioner Family; Visit Provider Physician Assistant
DX: S72.001A Fracture of unspecified part of neck of right femur, initial encounter for closed fracture (principal); S72.001D Fracture of unspecified part of neck of right femur, subsequent encounter for closed fracture with routine healing; X58.XXXD Exposure to other specified factors, subsequent encounter; I63.9 Cerebral infarction, unspecified
CPT/HCPCS: 73502

== ENCOUNTER 2023-01-30 16:50 | Outpatient (REF) | payer OTHER, MEDICAID, SELFPAY ==
[2023-01-30 17:34] LABS: Abs Immature Grans 0.03 10^3/uL (0.0-0.06); Absolute Basophil Count 0.05 10^3/uL (0.0-0.2); Absolute Eosinophil Count 0.28 10^3/uL (0.0-0.7); Absolute Lymphocyte Count 1.35 10^3/uL (1.2-3.4); Absolute Neutrophil Count 5.47 10^3/uL (1.2-6.7); Basophils % 0.6; Eosinophils % 3.6; HGB 12.2 g/dL (11.2-15.7); Immature Grans % 0.4; Lymphocytes % 17.1; MCH 29.8 pg (27.0-33.0); MCHC 31.3 % (32.0-36.0); MCV 95 fL (80-95); MPV 9.9 fL (8.0-11.0); Monocytes % 8.9; Neutrophils % 69.4; Platelet Count 412 10^3/uL (130-400); RBC 4.09 10^6/uL (3.93-5.22); RDW 15.3 % (11.7-14.6); RDW-SD 53.2 fL; WBC 7.88 10^3/uL (4.4-10.8)
[2023-01-30 17:36] LABS: ALT 26 U/L (14-59); AST 26 U/L (15-37); Albumin 3.7 g/dL (3.4-5.0); Alkaline Phosphatase 102 U/L (46-116); Anion Gap 6.6 mmol/L (3-11); BUN 22 mg/dL (7-18); Bilirubin, Total 0.7 mg/dL (0.2-1.0); CO2 34.4 mmol/L (21.0-32.0); CREATININE 0.8 mg/dL (0.55-1.02); Calcium 9.6 mg/dL (8.5-10.1); Chloride 102 mmol/L (98-107); Estimated GFR 80.21 (mL/min/1.73m2); Glucose 149 mg/dL (74-106); Potassium 4.3 mmol/L (3.5-5.1); Sodium 143 mmol/L (136-145); Total Protein 7.2 g/dL (6.4-8.2)
== END 2023-01-30 16:51 | disposition home or self-care (01) ==
LOC: LBN 16:50
PROVIDERS: PCP Nurse Practitioner Family; Visit Provider Nurse Practitioner Gerontology
DX: I50.1 Left ventricular failure, unspecified (principal); I48.91 Unspecified atrial fibrillation; J98.8 Other specified respiratory disorders; R68.89 Other general symptoms and signs
CPT/HCPCS: 80053; 85025

== ENCOUNTER 2023-02-12 02:27 | Outpatient (CLI) | payer OTHER, MEDICAID, SELFPAY ==
--- NOTE | 2023-02-12 | DI.RAD_ITS ---
Exam(s) XR HIP RT COMPLETE AP PELVIS EXAM: XR HIP RT COMPLETE AP PELVIS CLINICAL HISTORY: S/P FALL. TECHNIQUE: 2D digital imaging was performed. COMPARISON: CR XR HIP RT AP LAT ONLY from 01/23/2023 FINDINGS: Two views: Stable position of the 3 screws in the right femoral neck. No screw migration. Continued stable aria earance. No new fractures identified. IMPRESSION: Stable appearance. DATA REPOSITORY: RADIATION DOSE DELIVERED:
== END 2023-02-12 02:47 ==
LOC: DI 02:27
PROVIDERS: PCP Nurse Practitioner Family; Visit Provider Nurse Practitioner Gerontology
DX: M25.551 Pain in right hip (principal); W19.XXXD Unspecified fall, subsequent encounter; S72.001D Fracture of unspecified part of neck of right femur, subsequent encounter for closed fracture with routine healing
CPT/HCPCS: 73502

== ENCOUNTER 2023-03-08 08:31 | Outpatient (CLI) | payer OTHER, MEDICAID, SELFPAY ==
--- NOTE | 2023-03-08 08:44 | DI.RAD_ITS ---
Exam(s) XR HIP RT AP LAT ONLY EXAM: XR HIP RT AP LAT ONLY CLINICAL HISTORY: s/p cannulated screw. TECHNIQUE: 2D digital imaging was performed. Two images were obtained. AP and lateral views were ob tained. COMPARISON: CR XR HIP RT AP LAT ONLY from 01/23/2023 CR XR HIP RT COMPLETE AP PELVIS from 02/12/2023 FINDINGS: BONES: There are stable post operative changes present. No new fracture or dislocation. JOINTS: The joint spaces are well maintained. There are mild degenerative changes seen at the right hip. SOFT TISSUE: Atherosclerosis. IMPRESSION: Stable postoperative changes. DATA REPOSITORY: RADIATION DOSE DELIVERED:
== END 2023-03-08 08:32 | disposition home or self-care (01) ==
LOC: DIORS 08:32
PROVIDERS: PCP Nurse Practitioner Family; Visit Provider Physician Assistant
DX: S72.001D Fracture of unspecified part of neck of right femur, subsequent encounter for closed fracture with routine healing; X58.XXXD Exposure to other specified factors, subsequent encounter
CPT/HCPCS: 99213; 73502

== ENCOUNTER 2023-04-01 03:19 | Outpatient (CLI) | payer OTHER, MEDICAID, SELFPAY ==
--- NOTE | 2023-04-01 07:00 | DI.MRI_ITS ---
Exam(s) MR CERVICAL SPINE WO/W EXAM: MR CERVICAL SPINE WO/W CLINICAL HISTORY: WORSENING SYMPTOMS, MS, G35 TECHNIQUE: Multiplanar multisequence MRI of the cervical spine was performed without intravenous con trast. MR MR CERVICAL SPINE W/WO CONTRAST (IC) from 06/10/2017 MR MR CERVICAL SPINE WO CONTRAST (IC) from 07/10/2018 MR MR BRAIN WO/W from 04/01/2023 FINDINGS: BONES: Vertebral body heights are maintained. Alignment is normal. Bone marrow signal intensity is wi thin normal limits. 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 This again shows no enhancement but has increased in size, now measuring 1.0 cm AP by 1.6 cm ceph armani caudad by 14 millimeters transverse. It does appear to impinge on the medulla. There is no abno rmal signal in the cord at this level. Degenerative disc changes are again noted at the C5-6 and C6-7 levels with neural foraminal narrowing . Facet degenerative changes are also present. No significant central canal stenosis. CERVICAL CORD: There is mildly high signal seen within the cervical cord at the C3 level. There is m ildly increased signal within the cord at the C7 level. There is mild thinning of the cord at this l ocation. There is no abnormal enhancement within the cord, discs or spine. SOFT TISSUES: Unremarkable. IMPRESSION: Stable areas of mildly increased signal in the cervical cord at the C3 and C7 levels. No enhancement . 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 DATA REPOSITORY:
--- NOTE | 2023-04-01 07:00 | DI.MRI_ITS ---
Exam(s) MR THORACIC SPINE WO/W EXAM: MR THORACIC SPINE WO/W CLINICAL HISTORY: worsening symptoms,MS,G35. TECHNIQUE: Multiplanar multisequence MRI of the Thoracic spine was performed. CONTRAST MATERIAL: IV Contrast: 11 mL of Dotarem contrast administered for the brain, cervical and t horacic spine exams.. COMPARISON: None FINDINGS: Bones: The vertebral body heights are well maintained. Alignment is satisfactory. The signal characte ristics are unremarkable. Cord: The thoracic cord is normal size and signal intensity. No intrinsic cord lesion is present. Discs: No disc herniation or bulge is present. No neural foraminal narrowing or central canal steno sis. Soft tissues: Normal. There is no evidence of suspicious enhancement. IMPRESSION: Normal MRI examination of the thoracic spine. DATA REPOSITORY:
--- NOTE | 2023-04-01 07:00 | DI.MRI_ITS ---
Exam(s) MR BRAIN WO/W EXAM: MR BRAIN WO/W CLINICAL HISTORY: worsening symptoms,MS,G35. TECHNIQUE: Multiplanar multisequence MRI of the brain was performed. CONTRAST MATERIAL: IV Contrast: 11 ML of Dotarem contrast administered. FINDINGS: VENTRICLES AND EXTRA AXIAL SPACES: Normal in size and morphology for the patient's age. HEMORRHAGE: None. CEREBRAL PARENCHYMA: Abnormal prominent high signal is seen in the periventricular white matter, incl uding corpus callosum.. Multiple other scattered high signal lesions in the white matter. The findi ngs appear stable and are consistent with the patient's history of multiple sclerosis. No enhancing foci. No focus of restricted diffusion to suggest acute infarct. No space-occupying lesion identifie d. MIDLINE SHIFT: None. BRAINSTEM/CEREBELLUM: Some central high signal within the jessi, stable. CALVARIUM: Normal. ENHANCEMENT: No suspicious enhancement identified. VISUALIZED PARANASAL SINUSES/MASTOIDS: Clear. IMPRESSION: Stable appearance of abnormal white matter signal in the periventricular region consistent with patie nt's history of MS. No abnormal enhancing lesions. DATA REPOSITORY:
[2023-04-01 08:46] LABS: Abs Immature Grans 0.02 10^3/uL (0.0-0.06); Absolute Basophil Count 0.04 10^3/uL (0.0-0.2); Absolute Eosinophil Count 0.22 10^3/uL (0.0-0.7); Absolute Lymphocyte Count 1.86 10^3/uL (1.2-3.4); Absolute Monocyte Count 0.59 10^3/uL (0.1-0.8); Basophils % 0.8; Eosinophils % 4.3; HCT 41.1 % (36.0-46.0); HGB 13.1 g/dL (11.2-15.7); Immature Grans % 0.4; Lymphocytes % 36.3; MCH 29.4 pg (27.0-33.0); MCHC 31.9 % (32.0-36.0); MCV 92 fL (80-95); MPV 9.4 fL (8.0-11.0); Monocytes % 11.5; Neutrophils % 46.7; Platelet Count 315 10^3/uL (130-400); RBC 4.45 10^6/uL (3.93-5.22); RDW-SD 54.6 fL; WBC 5.13 10^3/uL (4.4-10.8)
[2023-04-01 08:53] LABS: CREATININE 1.2 mg/dL (0.55-1.02)
[2023-04-01 08:58] LABS: ALT 14 U/L (14-59); AST 17 U/L (15-37); Albumin 3.9 g/dL (3.4-5.0); Alkaline Phosphatase 56 U/L (46-116); Anion Gap 8.4 mmol/L (3-11); BUN 38 mg/dL (7-18); Bilirubin, Total 0.6 mg/dL (0.2-1.0); CO2 31.6 mmol/L (21.0-32.0); CREATININE 1.2 mg/dL (0.55-1.02); Calcium 9.2 mg/dL (8.5-10.1); Calculated LDL 126 mg/dL (<100); Chloride 104 mmol/L (98-107); Cholesterol 200 mg/dL (<200); Glucose 101 mg/dL (74-106); HDL Cholesterol 54 mg/dL (40-60); Potassium 4.7 mmol/L (3.5-5.1); Sodium 144 mmol/L (136-145); Total Protein 7.4 g/dL (6.4-8.2); Triglyceride 104 mg/dL (<150)
[2023-04-01] MEDS: Normal Saline Flush 10 ML SYR IVP (10:59)
[2023-04-01] MEDS: Gadoterate meglumine 20 ML VIAL IVP (10:59)
== END 2023-04-01 03:39 ==
LOC: DI 03:19
PROVIDERS: PCP Nurse Practitioner Family; Visit Provider Nurse Practitioner Family
DX: G35 Multiple sclerosis; K21.9 Gastro-esophageal reflux disease without esophagitis; J44.9 Chronic obstructive pulmonary disease, unspecified; F17.210 Nicotine dependence, cigarettes, uncomplicated; M47.812 Spondylosis without myelopathy or radiculopathy, cervical region
CPT/HCPCS: 70553; 80053; 80061; 72156; 72157; 82565; 85025

== ENCOUNTER 2023-05-31 12:00 | Outpatient (CLI) | payer OTHER, MEDICAID, SELFPAY ==
--- NOTE | 2023-05-31 11:59 | DI.RAD_ITS ---
Exam(s) XR HIP RT AP LAT ONLY EXAM: XR HIP RT AP LAT ONLY INDICATION: right femur fracture. COMPARISON: CR XR HIP RT AP LAT ONLY from 03/08/2023 TECHNIQUE: 2D digital imaging was performed. Two views. FINDINGS: Screws are again noted in the proximal femur for fracture fixation. There has been no change in frac ture or hardware alignment. Continued healing from prior. Mild degenerative changes of the hip. DATA REPOSITORY: RADIATION DOSE DELIVERED:
== END 2023-05-31 12:01 | disposition home or self-care (01) ==
LOC: DIORS 12:01
PROVIDERS: PCP Nurse Practitioner Family; Referring Provider Nurse Practitioner Family; Visit Provider Student in an Organized Health Care Education/Training Program
DX: X58.XXXA Exposure to other specified factors, initial encounter (principal); M16.11 Unilateral primary osteoarthritis, right hip; S72.001A Fracture of unspecified part of neck of right femur, initial encounter for closed fracture
CPT/HCPCS: 99213; 73502

== ENCOUNTER → 2023-06-04 13:43 | Outpatient (BNVA) | payer OTHER, MEDICAID, SELFPAY | PROVIDERS: PCP Nurse Practitioner Family; Referring Provider Nurse Practitioner Family; Visit Provider Physician Assistant | DX: S72.001D Fracture of unspecified part of neck of right femur, subsequent encounter for closed fracture with routine healing (principal); X58.XXXD Exposure to other specified factors, subsequent encounter; M16.11 Unilateral primary osteoarthritis, right hip | CPT/HCPCS: 20611; J1040 ==

== ENCOUNTER → 2023-09-30 12:58 | Outpatient (BNVA) | payer OTHER, MEDICAID, SELFPAY | PROVIDERS: PCP Nurse Practitioner Family; Referring Provider Nurse Practitioner Family; Visit Provider Physician Assistant Surgical | DX: J44.9 Chronic obstructive pulmonary disease, unspecified (principal); J96.91 Respiratory failure, unspecified with hypoxia; J96.92 Respiratory failure, unspecified with hypercapnia; R91.1 Solitary pulmonary nodule; Z87.891 Personal history of nicotine dependence | CPT/HCPCS: 99214 ==

== ENCOUNTER → 2023-10-10 13:10 | Outpatient (BNVA) | payer OTHER, MEDICAID, SELFPAY | PROVIDERS: PCP Nurse Practitioner Family; Referring Provider Nurse Practitioner Family | DX: S72.001D Fracture of unspecified part of neck of right femur, subsequent encounter for closed fracture with routine healing (principal); X58.XXXD Exposure to other specified factors, subsequent encounter; M16.11 Unilateral primary osteoarthritis, right hip | CPT/HCPCS: 20611; J1040 ==

== ENCOUNTER → 2024-04-22 08:54 | Outpatient (BNVA) | payer OTHER, MEDICAID, SELFPAY | PROVIDERS: PCP Nurse Practitioner Family; Referring Provider Nurse Practitioner Family; Visit Provider Internal Medicine Critical Care Medicine | DX: J44.9 Chronic obstructive pulmonary disease, unspecified (principal); J96.11 Chronic respiratory failure with hypoxia; J96.12 Chronic respiratory failure with hypercapnia; R91.1 Solitary pulmonary nodule; Z87.891 Personal history of nicotine dependence | CPT/HCPCS: 99214 ==

== ENCOUNTER 2024-04-29 14:17 | Outpatient (REF) | payer OTHER, MEDICAID, SELFPAY | END 2024-04-29 14:18 | disposition home or self-care (01) | LOC: LBN 14:17 | PROVIDERS: PCP Nurse Practitioner Family; Visit Provider Nurse Practitioner Family | DX: N89.8 Other specified noninflammatory disorders of vagina (principal) | CPT/HCPCS: 87480; 87510; 87660 ==

== ENCOUNTER 2024-09-17 08:11 | Outpatient (CLI) | payer MEDICARE, SELFPAY | END 2024-09-17 08:12 | disposition home or self-care (01) | LOC: DI.CARD 08:12 | PROVIDERS: PCP Nurse Practitioner Family; Visit Provider Internal Medicine Cardiovascular Disease | DX: I48.91 Unspecified atrial fibrillation (principal) | CPT/HCPCS: 93010 ==

== ENCOUNTER 2024-10-20 08:41 | Outpatient (CLI) | payer MEDICARE, SELFPAY | END 2024-10-20 08:42 | disposition home or self-care (01) | LOC: DI.CARD 08:43 | PROVIDERS: PCP Nurse Practitioner Family; Visit Provider Internal Medicine Cardiovascular Disease | CPT/HCPCS: 93010 ==

== ENCOUNTER → 2025-01-26 12:37 | Outpatient (BNVA) | payer MEDICARE, SELFPAY | PROVIDERS: PCP Nurse Practitioner Family; Referring Provider Nurse Practitioner Family; Visit Provider Psychiatry & Neurology Neurology | DX: G35 Multiple sclerosis (principal); G96.198 Other disorders of meninges, not elsewhere classified; G25.0 Essential tremor; R41.3 Other amnesia; N89.8 Other specified noninflammatory disorders of vagina; E11.9 Type 2 diabetes mellitus without complications; J44.9 Chronic obstructive pulmonary disease, unspecified; J45.909 Unspecified asthma, uncomplicated | CPT/HCPCS: 99215; G2212 ==

== ENCOUNTER 2025-03-11 13:36 | Outpatient (CLI) | payer MEDICARE, SELFPAY ==
--- NOTE | 2025-03-11 13:30 | DI.RAD_ITS ---
Exam(s) XR KNEE RT 4V AP,LAT,DON,PAT EXAM: XR KNEE RT 4V AP,LAT,DON,PAT CLINICAL HISTORY: RIGHT KNEE PAIN. TECHNIQUE: 2D digital imaging was performed. Three views. COMPARISON: CR XR HIP RT AP LAT ONLY from 05/31/2023 FINDINGS: BONES: No acute fracture is present. No bony destructive lesion is seen. The bones appear osteopenic. Enthesophyte at the quadriceps insertion. JOINTS: The knee is normally aligned. A small joint effusion is seen. Mild spurring at the patellofemoral joint. Joint spaces are maintained. SOFT TISSUE: Normal. IMPRESSION: Small joint effusion. Mild patellofemoral degenerative changes. DATA REPOSITORY: RADIATION DOSE DELIVERED:
== END 2025-03-11 13:37 | disposition home or self-care (01) ==
LOC: DIORS 13:37
PROVIDERS: PCP Nurse Practitioner Family; Referring Provider Nurse Practitioner Family; Visit Provider Physician Assistant
DX: M25.561 Pain in right knee (principal); M17.11 Unilateral primary osteoarthritis, right knee; W19.XXXA Unspecified fall, initial encounter; J44.9 Chronic obstructive pulmonary disease, unspecified; I11.0 Hypertensive heart disease with heart failure; E11.9 Type 2 diabetes mellitus without complications
CPT/HCPCS: 99213; 20610; J1010; 73564

== ENCOUNTER 2025-06-10 17:51 | Outpatient (REF) | payer MEDICARE, SELFPAY ==
[2025-06-10 18:33] LABS: Abs Immature Grans 0.01 10^3/uL (0.0-0.06); HCT 34.7 % (36.0-46.0); HGB 11.0 g/dL (11.2-15.7); Immature Grans % 0.2 %; MCH 32.5 pg (27.0-33.0); MCHC 31.7 % (32.0-36.0); MCV 103 fL (80-95); MPV 10.2 fL (8.0-11.0); Platelet Count 265 10^3/uL (130-400); RBC 3.38 10^6/uL (3.93-5.22); RDW 13.1 % (11.7-14.6); RDW-SD 49.4 fL; WBC 4.58 10^3/uL (4.4-10.8)
[2025-06-10 19:04] LABS: Hemoglobin A1C 6.0 % (<5.7)
[2025-06-10 19:15] LABS: ALT 15 U/L (14-59); AST 19 U/L (15-37); Albumin 3.8 g/dL (3.4-5.0); Alkaline Phosphatase 81 U/L (46-116); Anion Gap 9.7 mmol/L (3-11); BUN 26 mg/dL (7-18); Bilirubin, Total 0.4 mg/dL (0.2-1.0); CO2 28.3 mmol/L (21.0-32.0); Calcium 8.8 mg/dL (8.5-10.1); Calculated LDL 124 mg/dL (<100); Chloride 108 mmol/L (98-107); Cholesterol 216 mg/dL (<200); Estimated GFR 48.39 (mL/min/1.73m2); Glucose 154 mg/dL (74-106); HDL Cholesterol 51 mg/dL (>or=50); Potassium 4.5 mmol/L (3.5-5.1); Sodium 146 mmol/L (136-145); TSH (W/Ref FT4) 0.75 uIU/mL (0.36-3.74); Total Protein 7.1 g/dL (6.4-8.2); Triglyceride 208 mg/dL (<150); Vitamin D 25 Total 29 ng/mL (30-100)
== END 2025-06-10 17:52 | disposition home or self-care (01) ==
LOC: LBN 17:51
PROVIDERS: PCP Nurse Practitioner Family; Visit Provider Nurse Practitioner Family
DX: E11.9 Type 2 diabetes mellitus without complications (principal); R63.4 Abnormal weight loss; N89.8 Other specified noninflammatory disorders of vagina; M85.80 Other specified disorders of bone density and structure, unspecified site
CPT/HCPCS: 80053; 80061; 82306; 83036; 84443; 85025